=== PATIENT | female | born 1990 | race Caucasian/White ===

== ENCOUNTER → 2018-07-24 13:11 | Emergency (ER) | payer SELFPAY ==
[~2018-07-24 13:11] MED LIST: Albuterol HFA INHALER* 8 gm MDI INH ONE; Albuterol/Ipratropium NEB.SOL* Albuterol 2.5 MG/Ipratropium 0.5 MG 3 ML INH ONE; Dexamethasone TAB* 4 MG PO ONE
--- NOTE | 2018-07-24 14:29 | ED ---
Shortness of Breath - HPI Summary HPI Summary: A 28 y/o female presents to the ED c/o SOB due to her asthma for the past 3 days. As per triage, "SOB, just finishing steroids/abx for pneumonia. history of asthma. does not have established PCP, continued SOB since steroids done. needs inhaler". According to the patient, she is experiencing severe SOB due to her asthma. She stated that moved here 2 weeks ago and she does not have any asthma medications. She stated that she went to [place] a couple weeks ago in which she was given Prednisone, Keflex, and a nebulizer treatment, however, they did not prescribe her any medications. She went back to them but they stated that she would need to be re-evaluated again which she does not have time for. She noted that she has a sore throat from coughing, some chest tightness due to the asthma, and pleuritic back pain. She denies any abdominal pain, rash, bruising, but has been breaking out due to the weather she thinks. Additionally denies any anxiety, depression, and SI (even though she has been dealing with quite a bit lately). Patient is staying with a friend for now. - History of Current Complaint Chief Complaint: EDShortnessOfBreath Hx Obtained From: Patient Onset/Duration: Sudden Onset, Lasting Days, Still Present Timing: Constant Dyspnea At: Rest Aggrevating Factors: Nothing Alleviating Factors: Bronchodilators Associated Signs & Symptoms: Cough (Nonproductive), Chest Pain w/Cough - Allergy/Home Medications Allergies/Adverse Reactions: Allergies Allergy/AdvReac Type Severity Reaction Status Date / Time levofloxacin [From Levaquin] Allergy Unknown Verified 07/24/18 13:32 Reaction Details PMH/Surg Hx/FS Hx/Imm Hx Endocrine/Hematology History: Denies: Hx Diabetes Cardiovascular History: Denies: Hx Hypertension Respiratory History: Reports: Hx Asthma - Surgical History Surgery Procedure, Year, and Place: 2 HERNIA REPAIR AND TONSILLECTOMY Infectious Disease History: No Infectious Disease History: Denies: Traveled Outside the US in Last 30 Days - Family History Known Family History: Positive: Other - UNKNOWN: PATIENT'S PARENTS WHEN SHE WAS VERY YOUNG - Social History Alcohol Use: None Substance Use Type: Reports: None Smoking Status (MU): Never Smoked Tobacco Review of Systems Negative: Fever, Chills Positive: Other - NEGATIVE: DOUBLE VISION. Negative: Blurred Vision Positive: Sore Throat - DUE TO COUGH. Negative: Ear Ache Positive: Chest Pain - DUE TO COUGH/ASTHMA Positive: Shortness Of Breath, Cough - NONPRODUCTIVE Positive: Other - NEGATIVE: BLOOD IN STOOL AND CONSTIPATION. Negative: Abdominal Pain, Vomiting, Diarrhea, Nausea Negative: dysuria, hematuria Positive: Other - POSITIVE: PLEURITIC BACK PAIN (CHRONIC); NEGATIVE: NECK PAIN. Negative: Edema Positive: Other - POSITIVE: BREAKING OUT DUE TO WEATHER CHANGE. Negative: Rash , Bruising Negative: Headache Positive: Other - NEGATIVE: SI. Negative: Anxious, Depressed All Other Systems Reviewed And Are Negative: No Physical Exam - Summary Physical Exam Summary: Appearance: Alert, conversive, nontoxic appearing Skin: Warm, dry, no mottling, no rashes, no contusions HEENT: EOMI, PERRL, moist mucous membranes Neck: No masses on the neck, supple Respiratory: Clear to auscultation, breath sounds present, no rales, no rhonchi , patient is wheezing, more anteriorly. Cardiovascular: RRR, pulses are symmetrical in both lower and upper extremities Abdomen: Soft, non-tender Bowel Sounds: Present Musculoskeletal: No CVA tenderness, no obvious deformity, moving all extremities in a grossly normal manner Neurological: A&Ox3, CN II-XII Intact, moving all extremities symmetrically Psychiatric: Normal affect and mood Triage Information Reviewed: Yes Vital Signs On Initial Exam: Initial Vitals Temp Pulse Resp BP Pulse Ox 98.9 F 114 16 114/88 98 07/24/18 13:27 07/24/18 13:27 07/24/18 13:27 07/24/18 13:27 07/24/18 13:27 Vital Signs Reviewed: Yes Diagnostics - Vital Signs Vital Signs Temp Pulse Resp BP Pulse Ox 07/24/18 13:27 98.9 F 114 16 114/88 98 - Laboratory Lab Statement: Any lab studies that have been ordered have been reviewed, and results considered in the medical decision making process. - Radiology CXR Radiology Interpretation Completed By: Radiologist Summary of Radiographic Findings: NO ACTIVE CARDIOPULMONARY DISEASE. ED PHYSICIAN REVIEWED THIS RADIOLOGY REPORT. Course/Dx - Course Course Of Treatment: A 28 y/o female presents to the ED c/o SOB due to her asthma for the past 3 days. According to the patient, she is experiencing severe SOB due to her asthma. She stated that moved here 2 weeks ago and she does not have any asthma medications. She stated that she went to [place] a couple weeks ago in which she was given Prednisone, Keflex, and a nebulizer treatment, however, they did not prescribe her any medications. Physical examination findings significant for wheezing, more anteriorly. A CXR revealed no acute cardiopulmonary disease. No laboratory screens were done. In the ED course, the patient received Ventolin, Albuterol, and Decadron. Patient will be discharged with a diagnosis asthma. Patient is agreeable with this plan. - Diagnoses Provider Diagnoses: Asthma Discharge - Sign-Out/Discharge Documenting (check all that apply): Patient Departure - DISCHARGE - Discharge Plan Condition: Stable Disposition: HOME Prescriptions: Albuterol 2.5MG/3ML (0.083%)* [Ventolin 2.5 MG/3 ML NEB.MARISA*] 2.5 mg INH Q4H # 60 neb.[email or web address] Albuterol HFA INHALER* [Ventolin HFA Inhaler*] 1 puff INH Q4H PRN #1 mdi PRN Reason: Dyspnea predniSONE TAB* [Deltasone 20 MG TAB*] 60 mg PO DAILY #12 tab Patient Education Materials: Asthma (ED) Referrals: [facility] [Provider Group] No Primary Care Phys,NOPCP [Primary Care Provider] - Additional Instructions: Please establish care with a primary care physician. return if worse or any new symptoms. Use the inhaler and spacer as instructed. - Billing Disposition and Condition Condition: STABLE Disposition: Home - Attestation Statements Document Initiated by Kota: Yes Documenting Scribe: Marvin Francois Provider For Whom Kota is Documenting (Include Credential): Coco Cunha MD Scribe Attestation: Marvin Diego, scribed for Coco Cunha MD on 07/24/18 at 1603. Scribe Documentation Reviewed: Yes Provider Attestation: The documentation as recorded by the Marvin gonzalez accurately reflects the service I personally performed and the decisions made by me, Coco Cunha MD Status of Scribe Document: Viewed
[2018-07-24 15:42] VITALS: BP 137/91
== END | disposition home or self-care (01) ==
LOC: ED 13:11
DX: J45.909 Unspecified asthma, uncomplicated (principal); R05 Cough; R07.9 Chest pain, unspecified; J02.9 Acute pharyngitis, unspecified
CPT/HCPCS: 71046; 99282; A9270-GY; J8540

== ENCOUNTER 2018-08-06 19:05 | Emergency (ER) | payer SELFPAY ==
[2018-08-06] MEDS ORDERED: Lidocaine 2% EPI 1:200000 MPF*10-20 ML VIAL ONE (21:36)
--- NOTE | 2018-08-06 21:47 | ED ---
Skin Complaint - History of Current Complaint Chief Complaint: EDRashSkinAbscess Time Seen by Provider: 08/06/18 21:32 Stated Complaint: PAIN ON TAILBONE Hx Obtained From: Patient Onset/Duration: Started Days Ago - 3 days, Atraumatic, Still Present Timing: Constant Onset Severity: Mild Current Severity: Mild Pain Intensity: 8 Pain Scale Used: 0-10 Numeric Skin Location: Other: - tailbone Character: Pain Aggravating Symptom(s): Other: - sitting and lying down Alleviating Symptom(s): Nothing Associated Signs & Symptoms: Negative - negative fever - Allergy/Home Medications Allergies/Adverse Reactions: Allergies Allergy/AdvReac Type Severity Reaction Status Date / Time levofloxacin [From Levaquin] Allergy Unknown Verified 08/06/18 19:15 Reaction Details PMH/Surg Hx/FS Hx/Imm Hx Endocrine/Hematology History: Denies: Hx Diabetes Cardiovascular History: Denies: Hx Hypertension Respiratory History: Reports: Hx Asthma - Surgical History Surgery Procedure, Year, and Place: 2 HERNIA REPAIR AND TONSILLECTOMY Infectious Disease History: No Infectious Disease History: Denies: Traveled Outside the US in Last 30 Days - Family History Known Family History: Positive: Other - UNKNOWN: PATIENT'S PARENTS WHEN SHE WAS VERY YOUNG - Social History Alcohol Use: None Substance Use Type: Reports: None Smoking Status (MU): Never Smoked Tobacco Review of Systems Negative: Fever Negative: Epistaxis Negative: Cough Negative: Vomiting Skin: Other - painful cyst on tailbone All Other Systems Reviewed And Are Negative: Yes Physical Exam - Summary Physical Exam Summary: VITAL SIGNS: Reviewed. GENERAL: Patient is a well-developed and nourished FEMALE who is lying comfortable in the stretcher. Patient is not in any acute respiratory distress. HEAD AND FACE: No signs of trauma. No ecchymosis, hematomas or skull depressions. No sinus tenderness. EYES: PERRLA, EOMI x 2, No injected conjunctiva, no nystagmus. EARS: Hearing grossly intact. Ear canals and tympanic membranes are within normal limits. MOUTH: Oropharynx within normal limits. NECK: Supple, trachea is midline, no adenopathy, no JVD, no carotid bruit, no c- spine tenderness, neck with full ROM. CHEST: Symmetric, no tenderness at palpation LUNGS: Clear to auscultation bilaterally. No wheezing or crackles. CVS: Regular rate and rhythm, S1 and S2 present, no murmurs or gallops appreciated. ABDOMEN: Soft, non-tender. No signs of distention. No rebound no guarding, and no masses palpated. Bowel sounds are normal. EXTREMITIES: FROM in all major joints, no edema, no cyanosis or clubbing. NEURO: Alert and oriented x 3. No acute neurological deficits. Speech is normal and follows commands. SKIN: Dry and warm, Tender, fluctuant, swollen area over the left buttock over adjacent to the midline Triage Information Reviewed: Yes Vital Signs On Initial Exam: Initial Vitals Temp Pulse Resp BP Pulse Ox 96.8 F 124 16 133/95 99 08/06/18 19:10 08/06/18 19:10 08/06/18 19:10 08/06/18 19:10 08/06/18 19:10 Vital Signs Reviewed: Yes Procedures - Incision and Drainage left buttock abscess Site: over left buttock, adjacent to midline Anesthesia: Lidocaine - 2% with epi Instrument(s): Scalpel - #11 Packing: Gauze - iodoform gauze Diagnostics - Vital Signs Vital Signs Temp Pulse Resp BP Pulse Ox 08/06/18 21:14 98.4 F 119 16 141/90 100 08/06/18 19:10 96.8 F 124 16 133/95 99 - Laboratory Lab Statement: Any lab studies that have been ordered have been reviewed, and results considered in the medical decision making process. Course/Dx - Course Course Of Treatment: This patient is a 28 year old F presenting to [facility] with a chief complaint of a painful cyst on her tailbone since 3 days ago. The patient rates the pain 8/10 in severity. Symptoms aggravated by lying down or sitting. Symptoms alleviated by nothing. Patient denies fever. Patient says she has previously had a pilonidal cyst 1 year ago and had it drained in the hospital. Incision and drainage was performed of the swollen area over the left buttock, adjacent to midline. 2% lidocaine with epi was administered and #11 blade was used to make the incision. Approximately 25cc of pus was drained and the wound was packed with iodoform gauze. Patient will be discharged home. The patient is agreeable with this plan. - Diagnoses Provider Diagnoses: Pilonidal abscess Discharge - Sign-Out/Discharge Documenting (check all that apply): Patient Departure - discharge - Discharge Plan Condition: Stable Disposition: HOME Patient Education Materials: Pilonidal Cyst (ED), Abscess (ED) Referrals: Care [facility] [Outside] Additional Instructions: Remove packing after 2 days. Follow up with primary care physician. Return to the emergency room with any new or worsening symptoms. - Attestation Statements Document Initiated by Scribe: Yes Documenting Scribe: Izabel Antoine Provider For Whom Scribe is Documenting (Include Credential): Bonnie Louie MD Scribe Attestation: Izabel Diego, scribed for Bonnie Louie MD on 08/06/18 at 4107. Status of Scribe Document: Ready
[2018-08-06] MEDS ORDERED: Clindamycin CAP* 150 MG PO ONE (21:53)
[2018-08-06 22:58] VITALS: BP 108/80
--- NOTE | 2018-08-09 07:53 | ED ---
Progress - Progress Note Progress Note: Patient's pilonidal cyst culture status post I&D reveals that it is negative to MRSA and staph aureus however positive with Peptostreptococcus anaerobius +3 and normal micheal + 2. Patient was started on clindamycin which may be effective however Flagyl may be a better medication. Attempted to contact patient to update her symptoms however no answer. Left message to call. She was already advised to follow up at d/c. No further action at this time. Course/Dx - Course Course Of Treatment: This patient is a 28 year old F presenting to [facility] with a chief complaint of a painful cyst on her tailbone since 3 days ago. The patient rates the pain 8/10 in severity. Symptoms aggravated by lying down or sitting. Symptoms alleviated by nothing. Patient denies fever. Patient says she has previously had a pilonidal cyst 1 year ago and had it drained in the hospital. Incision and drainage was performed of the swollen area over the left buttock, adjacent to midline. 2% lidocaine with epi was administered and #11 blade was used to make the incision. Approximately 25cc of pus was drained and the wound was packed with iodoform gauze. Patient will be discharged home. The patient is agreeable with this plan. - Diagnoses Provider Diagnoses: Pilonidal abscess Discharge - Sign-Out/Discharge Documenting (check all that apply): Post-Discharge Follow Up - Discharge Plan Condition: Stable Disposition: HOME Prescriptions: Clindamycin Cap(NF) [Clindamycin Cap 300 mg Cap(NF)] 300 mg PO Q6H #30 cap oxyCODONE/Acetamin 5/325 MG* [Percocet 5/325 TAB*] 1 tab PO Q6H PRN #10 tab MDD 4 PRN Reason: Pain Patient Education Materials: Pilonidal Cyst (ED), Abscess (ED) Referrals: [facility] [Outside] Additional Instructions: Remove packing after 2 days. Follow up with primary care physician. Return to the emergency room with any new or worsening symptoms. - Billing Disposition and Condition Condition: STABLE Disposition: Home
== END 2018-08-06 22:58 | disposition home or self-care (01) ==
LOC: ED 19:05
DX: L05.01 Pilonidal cyst with abscess (principal)
CPT/HCPCS: 10080; 87070; 87076; 87077; 87205; 87640; 87641; 99283; A9270-GY

== ENCOUNTER → 2018-09-04 11:40 | Emergency (ER) | payer SELFPAY ==
[~2018-09-04 11:40] MED LIST changes: +Dexamethasone IV* 4 MG/ML 1 ML (4 MG) IM ONE; -Dexamethasone TAB* 4 MG PO ONE
[2018-09-04 14:49] VITALS: BP 129/90
--- NOTE | 2018-09-08 08:51 | ED ---
Shortness of Breath - HPI Summary HPI Summary: Patient is a 28-year-old female with a history of asthma presenting to the ED with a request for prescription for Ventolin and a work note. She states she has had worsening asthma exacerbation. She was seen here 2 weeks ago and was given Ventolin, albuterol, both which were "stolen" from her car. She states she's been out of her medications for several days and her symptoms worsened. She denies any cough with production. She denies any fevers, sweats, chills. Patient states she is otherwise healthy. - History of Current Complaint Chief Complaint: EDShortnessOfBreath Time Seen by Provider: 09/04/18 12:07 Hx Obtained From: Patient Onset/Duration: Sudden Onset Timing: Constant Current Severity: Mild Alleviating Factors: Bronchodilators, OTC Meds, Upright Position Associated Signs & Symptoms: Cough (Nonproductive) - Risk Factors Pulmonary Embolism: Negative Cardiac: Negative Pseudomonas: Negative Tuberculosis: Negative - Allergy/Home Medications Allergies/Adverse Reactions: Allergies Allergy/AdvReac Type Severity Reaction Status Date / Time cefaclor [From Ceclor] Allergy Unknown Verified 08/23/18 11:32 Reaction Details levofloxacin [From Levaquin] Allergy Unknown Verified 08/23/18 11:32 Reaction Details PMH/Surg Hx/FS Hx/Imm Hx Previously Healthy: Yes Endocrine/Hematology History: Denies: Hx Diabetes Cardiovascular History: Denies: Hx Hypertension Respiratory History: Reports: Hx Asthma - Surgical History Surgery Procedure, Year, and Place: 2 HERNIA REPAIR AND TONSILLECTOMY - Immunization History Date of Influenza Vaccine: none Hx Pertussis Vaccination: No Immunizations Up to Date: Yes Infectious Disease History: No Infectious Disease History: Denies: Traveled Outside the US in Last 30 Days - Family History Known Family History: Positive: Other - UNKNOWN: PATIENT'S PARENTS WHEN SHE WAS VERY YOUNG - Social History Occupation: Employed Part-time Lives: With Family Alcohol Use: Daily Hx Substance Use: No Substance Use Type: Reports: None Hx Tobacco Use: Yes Smoking Status (MU): Light Every Day Tobacco Smoker Review of Systems Constitutional: Negative Negative: Fever, Chills, Fatigue, Skin Diaphoresis Negative: Palpitations, Chest Pain Positive: Shortness Of Breath. Negative: Cough Genitourinary: Negative Positive: no symptoms reported, see HPI Negative: Arthralgia, Myalgia Skin: Negative All Other Systems Reviewed And Are Negative: Yes Physical Exam Triage Information Reviewed: Yes Vital Signs On Initial Exam: Initial Vitals Temp Pulse Resp BP Pulse Ox 98.1 F 97 18 139/88 96 09/04/18 11:56 09/04/18 11:56 09/04/18 11:56 09/04/18 11:56 09/04/18 11:56 Vital Signs Reviewed: Yes Appearance: Positive: Well-Appearing, Well-Nourished Skin: Positive: Warm, Skin Color Reflects Adequate Perfusion Head/Face: Positive: Normal Head/Face Inspection Eyes: Positive: Normal, SHANTEL, Conjunctiva Clear Neck: Positive: Supple, No Lymphadenopathy Respiratory/Lung Sounds: Positive: Wheezes Cardiovascular: Positive: RRR, Pulses are Symmetrical in both Upper and Lower Extremities Musculoskeletal: Positive: Normal, Strength/ROM Intact Psychiatric: Positive: Normal, Affect/Mood Appropriate Diagnostics - Vital Signs Vital Signs Temp Pulse Resp BP Pulse Ox 09/04/18 14:48 98.6 F 103 18 129/90 99 09/04/18 14:09 98 09/04/18 13:54 83 16 98 09/04/18 11:56 98.1 F 97 18 139/88 96 - Laboratory Lab Statement: Any lab studies that have been ordered have been reviewed, and results considered in the medical decision making process. Course/Dx - Course Course Of Treatment: During the course treatment, the patient is evaluated for worsening asthma exacerbation. While waiting in the ED, nurse noted she had worsening shortness of breath and brought her back to a room. She was given a nebulizer treatment with good relief. Lungs are wheezing bilaterally. She requests ventolin inhaler and prednisone. She is given these rx. - Diagnoses Differential Diagnosis/HQI/PQRI: Positive: Bronchitis, Pneumonia Provider Diagnoses: Bronchitis Discharge - Sign-Out/Discharge Documenting (check all that apply): Patient Departure Patient Received Moderate/Deep Sedation with Procedure: No - Discharge Plan Condition: Stable Disposition: HOME Prescriptions: Albuterol HFA INHALER* [Ventolin HFA Inhaler*] 1 puff INH Q4H PRN #1 mdi PRN Reason: Shortness Of Breath Patient Education Materials: Bronchospasm (ED) Forms: *Work Release Referrals: Mercedes Marsh MD [Medical Doctor] - No Primary Care Phys,NOPCP [Primary Care Provider] - Additional Instructions: Albuterol inhaler as needed for asthma exacerbation Please follow up with pulmonology once you get your insurance Return to the ED for worsening symptoms - Billing Disposition and Condition Condition: STABLE Disposition: Home
== END | disposition home or self-care (01) ==
LOC: ED 11:40
DX: R06.02 Shortness of breath (principal); F17.210 Nicotine dependence, cigarettes, uncomplicated
CPT/HCPCS: 96372; 99282; A9270-GY; J1100

== ENCOUNTER 2018-09-13 21:59 | Emergency (ER) | payer SELFPAY ==
[2018-09-13] MEDS ORDERED: Albuterol/Ipratropium NEB.SOL* Albuterol 2.5 MG/Ipratropium 0.5 MG 3 ML INH ONE (22:11)
[2018-09-13] MEDS ORDERED: predniSONE TAB* 20 MG PO ONE (22:11)
[2018-09-13] MEDS ORDERED: Albuterol HFA INHALER* 8 gm MDI INH ONE (22:16)
--- NOTE | 2018-09-13 22:21 | ED ---
Asthma - HPI Summary HPI Summary: Patient who recently moved from [place] complains of recurrent asthma attacks over the past 2 months. Currently complains of wheezing starting today. No insurance, states she is unable to get inhaler. Complains of chronic cough. Denies any other medical conditions or symptoms, injury or pain. - History of Current Complaint Chief Complaint: EDAsthma Stated Complaint: SOB Time Seen by Provider: 09/13/18 22:11 Hx Obtained From: Patient Onset/Duration: Sudden Onset, Lasting Hours Timing: Constant Current Severity: None Pain Intensity: 0 Pain Scale Used: 0-10 Numeric Location/Character: Wheezing Associated Signs and Symptoms: Positive: Negative - Allergy/Home Medications Allergies/Adverse Reactions: Allergies Allergy/AdvReac Type Severity Reaction Status Date / Time cefaclor [From Ceclor] Allergy Unknown Verified 08/23/18 11:32 Reaction Details levofloxacin [From Levaquin] Allergy Unknown Verified 08/23/18 11:32 Reaction Details PMH/Surg Hx/FS Hx/Imm Hx Endocrine/Hematology History: Denies: Hx Diabetes Cardiovascular History: Denies: Hx Hypertension Respiratory History: Reports: Hx Asthma History: Denies: Hx Dialysis Musculoskeletal History: Denies: Hx Gout Opthamlomology History: Denies: Hx Eye Injury EENT History: Denies: Hx Deafness Neurological History: Denies: Hx Dementia Psychiatric History: Denies: Hx Autism - Surgical History Surgery Procedure, Year, and Place: 2 HERNIA REPAIR AND TONSILLECTOMY - Immunization History Date of Influenza Vaccine: none Infectious Disease History: No Infectious Disease History: Denies: Traveled Outside the US in Last 30 Days - Family History Known Family History: Positive: Other - UNKNOWN: PATIENT'S PARENTS WHEN SHE WAS VERY YOUNG - Social History Alcohol Use: Daily Hx Substance Use: No Substance Use Type: Reports: None Hx Tobacco Use: Yes Smoking Status (MU): Light Every Day Tobacco Smoker Review of Systems Constitutional: Negative Eyes: Negative ENT: Negative Cardiovascular: Negative Positive: Shortness Of Breath Gastrointestinal: Negative Genitourinary: Negative Musculoskeletal: Negative Skin: Negative Neurological: Negative Psychological: Normal All Other Systems Reviewed And Are Negative: Yes Physical Exam - Summary Physical Exam Summary: Mild wheeze bilaterally. Triage Information Reviewed: Yes Vital Signs On Initial Exam: Initial Vitals Temp Pulse Resp BP Pulse Ox 97.6 F 119 24 123/83 98 09/13/18 21:59 09/13/18 21:59 09/13/18 21:59 09/13/18 21:59 09/13/18 21:59 Vital Signs Reviewed: Yes Appearance: Positive: Well-Appearing Skin: Positive: Warm Head/Face: Positive: Normal Head/Face Inspection Eyes: Positive: Normal ENT: Positive: Normal ENT inspection Neck: Positive: Supple Respiratory/Lung Sounds: Positive: Clear to Auscultation Cardiovascular: Positive: Normal Abdomen Description: Positive: Nontender Musculoskeletal: Positive: Normal Neurological: Positive: Normal Psychiatric: Positive: Normal AVPU Assessment: Alert - [place] Coma Scale Best Eye Response: 4 - Spontaneous Best Motor Response: 6 - Obeys Commands Best Verbal Response: 5 - Oriented Coma Scale Total: 15 Diagnostics - Vital Signs Vital Signs Temp Pulse Resp BP Pulse Ox 09/13/18 21:59 97.6 F 119 24 123/83 98 - Laboratory Lab Statement: Any lab studies that have been ordered have been reviewed, and results considered in the medical decision making process. Asthma Course/Dx - Course Course Of Treatment: Patient who recently moved from [place] complains of recurrent asthma attacks over the past 2 months. Currently complains of wheezing starting today. No insurance, states she is unable to get inhaler. Complains of chronic cough. Denies any other medical conditions or symptoms, injury or pain. Physical exam:Mild wheeze bilaterally. Heart rate 119. Respiratory rate 24. Patient received DuoNeb and prednisone 60 mg by mouth and albuterol inhaler to go. Rx for same. - Diagnoses Provider Diagnoses: Asthma attack Discharge - Sign-Out/Discharge Documenting (check all that apply): Patient Departure Patient Received Moderate/Deep Sedation with Procedure: No - Discharge Plan Condition: Stable Disposition: HOME Prescriptions: Albuterol HFA INHALER* [Ventolin HFA Inhaler*] 2 puff INH Q4H PRN #1 mdi PRN Reason: Dyspnea predniSONE TAB* [Deltasone 20 MG TAB*] 40 mg PO DAILY 5 Days #10 tab Patient Education Materials: Asthma (ED) Referrals: No Primary Care Phys,NOPCP [Primary Care Provider] - [facility] [Outside] Additional Instructions: Follow-up with primary care. Return to the ED for any new or worsening symptoms. - Billing Disposition and Condition Condition: STABLE Disposition: Home
[2018-09-13 22:45] VITALS: BP 109/68
== END 2018-09-13 23:00 | disposition home or self-care (01) ==
LOC: ED 21:59
DX: J45.901 Unspecified asthma with (acute) exacerbation (principal); Z88.1 Allergy status to other antibiotic agents; F17.200 Nicotine dependence, unspecified, uncomplicated
CPT/HCPCS: 99282; A9270-GY; J7512

== ENCOUNTER 2018-09-24 10:53 | Emergency (ER) | payer SELFPAY ==
[2018-09-24] MEDS ORDERED: Albuterol/Ipratropium NEB.SOL* Albuterol 2.5 MG/Ipratropium 0.5 MG 3 ML INH ONE (14:28)
[2018-09-24] MEDS ORDERED: Albuterol/Ipratropium NEB.SOL* Albuterol 2.5 MG/Ipratropium 0.5 MG 3 ML ONE (14:30)
[2018-09-24] MEDS ORDERED: Albuterol HFA INHALER* 8 gm MDI INH ONE (15:13)
--- NOTE | 2018-09-24 15:17 | ED ---
Asthma - HPI Summary HPI Summary: Patient is a 28-year-old female who is a frequent visitor to the ED due to lapses in insurance for requests for more asthma medications. She states she recently moved here from [place] and her asthma has been worsening since arrival. 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 She has been given inhalers and steroids in the past and she has a request for this today. She is also requesting a longer acting inhaler. She denies any congestion, however endorses a mild cough without production. - History of Current Complaint Chief Complaint: EDAsthma Stated Complaint: "ASTHMA ISSUES" PER PT Time Seen by Provider: 09/24/18 13:47 Hx Obtained From: Patient Onset/Duration: Sudden Onset Timing: Constant Initial Severity: Moderate Current Severity: Moderate Pain Intensity: 2 Pain Scale Used: 0-10 Numeric Location/Character: Wheezing Aggravating Symptoms: Smoke Alleviating Symptoms: Steriods, Inhalers/Nebulizers Associated Signs and Symptoms: Positive: URI, Shortness of Breath - Risk Factors Status Asthmaticus Risk Factors: Recent Steroids - Allergy/Home Medications Allergies/Adverse Reactions: Allergies Allergy/AdvReac Type Severity Reaction Status Date / Time cefaclor [From Ceclor] Allergy Unknown Verified 08/23/18 11:32 Reaction Details levofloxacin [From Levaquin] Allergy Unknown Verified 08/23/18 11:32 Reaction Details PMH/Surg Hx/FS Hx/Imm Hx Previously Healthy: Yes Endocrine/Hematology History: Denies: Hx Diabetes Cardiovascular History: Denies: Hx Hypertension Respiratory History: Reports: Hx Asthma History: Denies: Hx Dialysis Musculoskeletal History: Denies: Hx Gout Sensory History: Denies: Hx Eye Injury, Hx Deafness Opthamlomology History: Denies: Hx Eye Injury Neurological History: Denies: Hx Dementia Psychiatric History: Denies: Hx Autism - Surgical History Surgery Procedure, Year, and Place: 2 HERNIA REPAIR AND TONSILLECTOMY - Immunization History Date of Influenza Vaccine: none Hx Pertussis Vaccination: No Immunizations Up to Date: Yes Infectious Disease History: No Infectious Disease History: Denies: Traveled Outside the US in Last 30 Days - Family History Known Family History: Positive: Other - UNKNOWN: PATIENT'S PARENTS WHEN SHE WAS VERY YOUNG - Social History Occupation: Employed Full-time Lives: Alone Alcohol Use: Daily Hx Substance Use: No Substance Use Type: Reports: None Hx Tobacco Use: Yes Smoking Status (MU): Light Every Day Tobacco Smoker Review of Systems Negative: Fever, Chills, Fatigue, Skin Diaphoresis Negative: Palpitations, Chest Pain Positive: Shortness Of Breath, Cough Negative: Abdominal Pain Negative: Arthralgia, Myalgia Skin: Negative Neurological: Negative All Other Systems Reviewed And Are Negative: Yes Physical Exam Triage Information Reviewed: Yes Vital Signs On Initial Exam: Initial Vitals Temp Pulse Resp BP Pulse Ox 97.0 F 116 24 146/103 99 09/24/18 10:54 09/24/18 10:54 09/24/18 10:54 09/24/18 10:54 09/24/18 10:54 Vital Signs Reviewed: Yes Appearance: Positive: Well-Appearing, Well-Nourished Skin: Positive: Warm, Skin Color Reflects Adequate Perfusion Head/Face: Positive: Normal Head/Face Inspection Eyes: Positive: EOMI, SHANTEL Neck: Positive: Supple, No Lymphadenopathy Respiratory/Lung Sounds: Positive: Wheezes - bilaterally. Negative: Decreased Breath Sounds, Rales, Rhonchi, Tracheal Deviation, Unable to speak in full sentences Cardiovascular: Positive: RRR, Pulses are Symmetrical in both Upper and Lower Extremities Musculoskeletal: Positive: Normal, Strength/ROM Intact Neurological: Positive: Speech Normal Psychiatric: Positive: Affect/Mood Appropriate Diagnostics - Vital Signs Vital Signs Temp Pulse Resp BP Pulse Ox 09/24/18 14:36 108 18 99 09/24/18 13:33 132 18 98 09/24/18 13:08 97.1 F 110 20 137/95 100 09/24/18 10:54 97.0 F 116 24 146/103 99 - Laboratory Lab Statement: Any lab studies that have been ordered have been reviewed, and results considered in the medical decision making process. Asthma Course/Dx - Course Course Of Treatment: On arrival, patient's states she has been having worsening asthma. Lungs are wheezy throughout. No rhonchorous sounds. She is given abulteral, advair and prednisone. Breathing tx given in the ED with good effect. Less wheezing throughout on recheck. No fevers. Patient denies f/w/ c. Denies congestion. - Diagnoses Differential Diagnosis/HQI/PQRI: Positive: Bronchitis Provider Diagnoses: Asthma Discharge - Sign-Out/Discharge Documenting (check all that apply): Patient Departure Patient Received Moderate/Deep Sedation with Procedure: No - Discharge Plan Condition: Stable Disposition: HOME Prescriptions: Albuterol HFA INHALER* [Ventolin HFA Inhaler*] 1 puff INH Q4H PRN #1 mdi PRN Reason: Shortness Of Breath Fluticasone-Salmeterol 250-50* [Advair Diskus 250-50*] 1 puff INH BID #1 diskus Patient Education Materials: Asthma (ED) Forms: *Work Release Referrals: [facility] [Outside] No Primary Care Phys,NOPCP [Primary Care Provider] - Additional Instructions: Follow-up with [facility] Advair twice daily Albuterol inhaler as needed - Billing Disposition and Condition Condition: STABLE Disposition: Home
[2018-09-24 15:31] VITALS: BP 120/87
[2018-09-24] MEDS ORDERED: Fluticasone-Salmeterol 250-50* DISKUS INH SCH (21:00)
== END 2018-09-24 15:20 | disposition home or self-care (01) ==
LOC: ED 10:53
DX: J45.909 Unspecified asthma, uncomplicated (principal); R06.02 Shortness of breath; F17.210 Nicotine dependence, cigarettes, uncomplicated; R05 Cough
CPT/HCPCS: 99282; A9270-GY

== ENCOUNTER 2018-10-08 11:04 | Emergency (ER) | payer SELFPAY ==
[2018-10-08] MEDS ORDERED: Albuterol/Ipratropium NEB.SOL* Albuterol 2.5 MG/Ipratropium 0.5 MG 3 ML INH ONE (11:29)
[2018-10-08] MEDS ORDERED: predniSONE TAB* 20 MG PO ONE (11:29)
[2018-10-08] MEDS ORDERED: Albuterol HFA INHALER* 8 gm MDI INH ONE (11:57)
[2018-10-08 12:31] VITALS: BP 146/85
--- NOTE | 2018-10-12 15:06 | ED ---
Asthma - HPI Summary HPI Summary: Pt. is a 28 y.o female who presents to the ER for asthma exacerbation. Pt. notes she recently moved to the area from [place] and since her asthma has been worse. Pt. has been seen in our ER numerous times for same complaint. She has been treated with prednisone and Advair. Pt. states she lost her inhaler and is feeling tight today. She notes ongoing, chronic cough. Denies fever, CP, abd. pain. Otherwise no past medical hx. Pt. has not made attempt to obtain PCP. Sxs are mild in severity. No current modifying factors. - History of Current Complaint Chief Complaint: EDAsthma Stated Complaint: ASTHMA ISSUES, COUGH PER PT Time Seen by Provider: 10/08/18 11:43 Hx Obtained From: Patient Pain Intensity: 0 Pain Scale Used: 0-10 Numeric - Allergy/Home Medications Allergies/Adverse Reactions: Allergies Allergy/AdvReac Type Severity Reaction Status Date / Time cefaclor [From Ceclor] Allergy Unknown Verified 10/08/18 11:08 Reaction Details levofloxacin [From Levaquin] Allergy Unknown Verified 10/08/18 11:08 Reaction Details PMH/Surg Hx/FS Hx/Imm Hx Previously Healthy: Yes Endocrine/Hematology History: Denies: Hx Diabetes Cardiovascular History: Denies: Hx Hypertension Respiratory History: Reports: Hx Asthma History: Denies: Hx Dialysis Musculoskeletal History: Denies: Hx Gout Sensory History: Denies: Hx Eye Injury, Hx Deafness Opthamlomology History: Denies: Hx Eye Injury Neurological History: Denies: Hx Dementia Psychiatric History: Denies: Hx Autism - Surgical History Surgery Procedure, Year, and Place: 2 HERNIA REPAIR AND TONSILLECTOMY - Immunization History Date of Influenza Vaccine: none Infectious Disease History: No Infectious Disease History: Denies: Traveled Outside the US in Last 30 Days - Family History Known Family History: Positive: Other - UNKNOWN: PATIENT'S PARENTS WHEN SHE WAS VERY YOUNG - Social History Occupation: Unemployed Lives: With Family Alcohol Use: Occasionally Hx Substance Use: No Substance Use Type: Reports: None Hx Tobacco Use: Yes Smoking Status (MU): Light Every Day Tobacco Smoker Review of Systems Constitutional: Negative Negative: Fever Eyes: Negative ENT: Negative Cardiovascular: Negative Positive: Shortness Of Breath, Cough Gastrointestinal: Negative Skin: Negative Neurological: Negative All Other Systems Reviewed And Are Negative: Yes Physical Exam Triage Information Reviewed: Yes Vital Signs On Initial Exam: Initial Vitals Temp Pulse Resp BP Pulse Ox 98.4 F 122 20 127/96 99 10/08/18 11:08 10/08/18 11:08 10/08/18 11:08 10/08/18 11:08 10/08/18 11:08 Vital Signs Reviewed: Yes Appearance: Positive: Well-Appearing - Pt. sitting on bed in NAD. Breathing easily on RA. Skin: Positive: Warm, Dry Head/Face: Positive: Normal Head/Face Inspection Eyes: Positive: Normal, EOMI ENT: Positive: Pharynx normal, TMs normal Neck: Positive: Supple Respiratory/Lung Sounds: Positive: Other - Mild diminished breath sounds through out. Cardiovascular: Positive: Normal, RRR Neurological: Positive: Normal, CN Intact II-III Psychiatric: Positive: Affect/Mood Appropriate Diagnostics - Vital Signs Vital Signs Temp Pulse Resp BP Pulse Ox 10/08/18 12:30 98.1 F 118 18 146/85 98 10/08/18 12:01 112 18 98 10/08/18 11:08 98.4 F 122 20 127/96 99 - Laboratory Lab Statement: Any lab studies that have been ordered have been reviewed, and results considered in the medical decision making process. Asthma Course/Dx - Course Course Of Treatment: Pt. afebrile and well appearing. O2 saturation is 99& % on RA which is normal. Pt. given dueoneb in ED. Pt. requesting dispensed inhaler and rx. Strongly advised pt. to schedule an apt. with the [facility] in [facility] or the [facility]. To continue Advair. Will return if sxs change or worsen. Pt. understands and agrees with plan. - Diagnoses Differential Diagnosis/HQI/PQRI: Positive: Acute Asthma, Bronchitis, Pneumonia Provider Diagnoses: Asthma exacerbation Discharge - Sign-Out/Discharge Documenting (check all that apply): Patient Departure Patient Received Moderate/Deep Sedation with Procedure: No - Discharge Plan Condition: Good Disposition: HOME Prescriptions: Albuterol HFA INHALER* [Ventolin HFA Inhaler*] 2 puff INH Q4H PRN #1 mdi PRN Reason: Wheezing Patient Education Materials: Asthma (ED) Referrals: [facility] [Outside] [facility] [Outside] Additional Instructions: Call the [facility] or the [facility] today to schedule an appointment VESTA Return to ER if symptoms change or worsen - Billing Disposition and Condition Condition: GOOD Disposition: Home
== END 2018-10-08 12:30 | disposition home or self-care (01) ==
LOC: ED 11:04
DX: J45.901 Unspecified asthma with (acute) exacerbation (principal); R05 Cough; Z88.1 Allergy status to other antibiotic agents; F17.200 Nicotine dependence, unspecified, uncomplicated
CPT/HCPCS: 99282; A9270-GY; J7512

== ENCOUNTER 2018-10-20 20:18 | Emergency (ER) | payer SELFPAY ==
[2018-10-20] MEDS ORDERED: Albuterol/Ipratropium NEB.SOL* Albuterol 2.5 MG/Ipratropium 0.5 MG 3 ML INH ONE (20:33)
[2018-10-20] MEDS ORDERED: predniSONE TAB* 20 MG PO ONE (21:12)
[2018-10-20] MEDS ORDERED: Albuterol HFA INHALER* 8 gm MDI INH ONE (21:12)
--- NOTE | 2018-10-20 21:15 | ED ---
Asthma - HPI Summary HPI Summary: 28-year-old female presents with shortness of breath today. She states that she ran out of her inhaler with the weather change and is having issues with her asthma. She denies any fevers. No cough. She states she has been wheezing. No chest pain. She denies abdominal pain nausea vomiting. No sinus congestion. No other symptoms. Denies any recent illness. - History of Current Complaint Chief Complaint: EDShortnessOfBreath Stated Complaint: ASTHMA ATTACK PER PT Time Seen by Provider: 10/20/18 20:33 Pain Intensity: 0 - Allergy/Home Medications Allergies/Adverse Reactions: Allergies Allergy/AdvReac Type Severity Reaction Status Date / Time cefaclor [From Ceclor] Allergy Unknown Verified 10/20/18 20:27 Reaction Details levofloxacin [From Levaquin] Allergy Unknown Verified 10/20/18 20:27 Reaction Details Home Medications: Home Medications Montelukast Sodium TAB* [Singulair TAB*] 10 mg PO DAILY 10/20/18 [History Confirmed 10/20/18] PMH/Surg Hx/FS Hx/Imm Hx Endocrine/Hematology History: Denies: Hx Diabetes Cardiovascular History: Denies: Hx Hypertension Respiratory History: Reports: Hx Asthma History: Denies: Hx Dialysis Musculoskeletal History: Denies: Hx Gout Sensory History: Denies: Hx Eye Injury, Hx Deafness Opthamlomology History: Denies: Hx Eye Injury Neurological History: Denies: Hx Dementia Psychiatric History: Denies: Hx Autism - Surgical History Surgery Procedure, Year, and Place: 2 HERNIA REPAIR AND TONSILLECTOMY - Immunization History Date of Influenza Vaccine: none Infectious Disease History: No Infectious Disease History: Denies: Traveled Outside the US in Last 30 Days - Family History Known Family History: Positive: Other - UNKNOWN: PATIENT'S PARENTS WHEN SHE WAS VERY YOUNG - Social History Alcohol Use: Occasionally Hx Substance Use: No Substance Use Type: Reports: None Hx Tobacco Use: Yes Smoking Status (MU): Light Every Day Tobacco Smoker Review of Systems Negative: Fever Negative: Chest Pain Positive: Shortness Of Breath Negative: Abdominal Pain All Other Systems Reviewed And Are Negative: Yes Physical Exam Triage Information Reviewed: Yes Vital Signs On Initial Exam: Initial Vitals Temp Pulse Resp BP Pulse Ox 97.6 F 116 20 142/102 96 10/20/18 20:24 10/20/18 20:24 10/20/18 20:24 10/20/18 20:24 10/20/18 20:24 Vital Signs Reviewed: Yes Appearance: Positive: Well-Appearing Skin: Positive: Warm, Dry Head/Face: Positive: Normal Head/Face Inspection Eyes: Positive: Normal, Conjunctiva Clear ENT: Positive: Pharynx normal Respiratory/Lung Sounds: Positive: Breath Sounds Present, Wheezes Cardiovascular: Positive: Normal, RRR Abdomen Description: Positive: Nontender, Soft Bowel Sounds: Positive: Present Musculoskeletal: Positive: Normal Neurological: Positive: Normal Psychiatric: Positive: Normal Diagnostics - Vital Signs Vital Signs Temp Pulse Resp BP Pulse Ox 10/20/18 21:00 110 96 10/20/18 20:44 121 20 96 10/20/18 20:41 114 104/81 95 10/20/18 20:39 114 95 10/20/18 20:24 97.6 F 116 20 142/102 96 - Laboratory Lab Statement: Any lab studies that have been ordered have been reviewed, and results considered in the medical decision making process. Re-Evaluation - Re-Evaluation First Eval Re-Evaluation Time: 21:14 Change: Improved Comment: lungs CTA Asthma Course/Dx - Course Course Of Treatment: 28-year-old female presents with shortness of breath today. She states that she ran out of her inhaler with the weather change and is having issues with her asthma. She denies any fevers. No cough. She states she has been wheezing. No chest pain. She denies abdominal pain nausea vomiting. No sinus congestion. No other symptoms. Denies any recent illness. On exam wheezing noted. gave breathing treatment and wheezing resolved. We will prescribe steroids. Gave refill for inhaler. Patient understands agrees with plan. - Diagnoses Differential Diagnosis/HQI/PQRI: Positive: Acute Asthma, Bronchitis, Pneumonia Provider Diagnoses: Asthma Discharge - Sign-Out/Discharge Documenting (check all that apply): Patient Departure Patient Received Moderate/Deep Sedation with Procedure: No - Discharge Plan Condition: Good Disposition: HOME Prescriptions: Albuterol 2.5MG/3ML (0.083%)* [Ventolin 2.5 MG/3 ML NEB.[email or web address]*] 2.5 mg INH Q4H # 20 [email or web address] Albuterol HFA INHALER* [Ventolin HFA Inhaler*] 1 puff INH Q4H PRN #1 mdi PRN Reason: Sob/Wheezing Montelukast Sodium TAB* [Singulair TAB*] 10 mg PO DAILY #30 tab predniSONE TAB* [Deltasone TAB*] 50 mg PO DAILY #4 tab Patient Education Materials: Asthma (ED) Referrals: [facility] [Outside] Additional Instructions: Use inhaler up to two puffs every 4 hours for cough and wheezing Take steroid once a day for 4 more days starting tomorrow Take Tylenol or ibuprofen for pain every 6 hours Return to ED if develop severe shortness of breath, worsening chest pain, or any new or worsening symptoms - Billing Disposition and Condition Condition: GOOD Disposition: Home
[2018-10-20 21:26] VITALS: BP 123/73
== END 2018-10-20 21:23 | disposition home or self-care (01) ==
LOC: ED 20:18
DX: J45.909 Unspecified asthma, uncomplicated (principal); Z88.1 Allergy status to other antibiotic agents; F17.200 Nicotine dependence, unspecified, uncomplicated
CPT/HCPCS: 99282; A9270-GY; J7512

== ENCOUNTER → 2018-11-03 19:42 | Emergency (ER) | payer SELFPAY ==
[~2018-11-03 19:42] MED LIST changes: -Albuterol HFA INHALER* 8 gm MDI INH ONE; +Albuterol HFA INHALER* 8 gm MDI INH PRN; -Dexamethasone IV* 4 MG/ML 1 ML (4 MG) IM ONE
--- NOTE | 2018-11-03 20:32 | ED ---
Asthma - HPI Summary HPI Summary: Patient with history of asthma Complains of having lost her inhaler today. Denies SOB. Patient wants replacement inhaler. Denies any other pain injury or symptoms. - History of Current Complaint Chief Complaint: EDMedicationRefill Stated Complaint: ASTHMA PER PT Time Seen by Provider: 11/03/18 20:03 Hx Obtained From: Patient Current Severity: None Pain Intensity: 0 Pain Scale Used: 0-10 Numeric - Allergy/Home Medications Allergies/Adverse Reactions: Allergies Allergy/AdvReac Type Severity Reaction Status Date / Time cefaclor [From Ceclor] Allergy Unknown Verified 11/03/18 21:15 Reaction Details levofloxacin [From Levaquin] Allergy Unknown Verified 11/03/18 21:15 Reaction Details PMH/Surg Hx/FS Hx/Imm Hx Endocrine/Hematology History: Denies: Hx Diabetes Cardiovascular History: Denies: Hx Hypertension Respiratory History: Reports: Hx Asthma History: Denies: Hx Dialysis Musculoskeletal History: Denies: Hx Gout Sensory History: Denies: Hx Eye Injury, Hx Deafness Opthamlomology History: Denies: Hx Eye Injury Neurological History: Denies: Hx Dementia Psychiatric History: Denies: Hx Autism - Surgical History Surgery Procedure, Year, and Place: 2 HERNIA REPAIR AND TONSILLECTOMY - Immunization History Date of Influenza Vaccine: none Infectious Disease History: No Infectious Disease History: Denies: Traveled Outside the US in Last 30 Days - Family History Known Family History: Positive: Other - UNKNOWN: PATIENT'S PARENTS WHEN SHE WAS VERY YOUNG - Social History Alcohol Use: Occasionally Hx Substance Use: No Substance Use Type: Reports: None Hx Tobacco Use: Yes Smoking Status (MU): Light Every Day Tobacco Smoker Review of Systems Constitutional: Negative Eyes: Negative ENT: Negative Cardiovascular: Negative Respiratory: Negative Gastrointestinal: Negative Genitourinary: Negative Musculoskeletal: Negative Skin: Negative Neurological: Negative Psychological: Normal All Other Systems Reviewed And Are Negative: Yes Physical Exam - Summary Physical Exam Summary: . Mild wheeze on right side. Left-sided clear to auscultation Triage Information Reviewed: Yes Vital Signs On Initial Exam: Initial Vitals Temp Pulse Resp BP Pulse Ox 97.4 F 114 20 123/95 98 11/03/18 19:45 11/03/18 19:45 11/03/18 19:45 11/03/18 19:45 11/03/18 19:45 Vital Signs Reviewed: Yes Appearance: Positive: Well-Appearing Skin: Positive: Warm Head/Face: Positive: Normal Head/Face Inspection Eyes: Positive: Normal ENT: Positive: Normal ENT inspection Neck: Positive: Supple Respiratory/Lung Sounds: Positive: Wheezes - . Mild wheezes on right side. Left side clear to auscultation. Cardiovascular: Positive: Normal Abdomen Description: Positive: Nontender Musculoskeletal: Positive: Normal Neurological: Positive: Normal Psychiatric: Positive: Normal AVPU Assessment: Alert - Stephanie Coma Scale Best Eye Response: 4 - Spontaneous Best Motor Response: 6 - Obeys Commands Best Verbal Response: 5 - Oriented Coma Scale Total: 15 Diagnostics - Vital Signs Vital Signs Temp Pulse Resp BP Pulse Ox 11/03/18 19:45 97.4 F 114 20 123/95 98 - Laboratory Lab Statement: Any lab studies that have been ordered have been reviewed, and results considered in the medical decision making process. Asthma Course/Dx - Course Course Of Treatment: Patient with history of asthma Complains of having lost her inhaler today. Denies SOB. Patient wants replacement inhaler. Denies any other pain injury or symptoms. Physical exam: Mild wheeze on right side. Left- sided clear to auscultation. Vital signs within normal limits. Patient received DuoNeb treatment here. Patient states she feels good to go home with inhaler. Patient given inhaler here in ED. Rx for same - Diagnoses Provider Diagnoses: Asthma Discharge - Sign-Out/Discharge Documenting (check all that apply): Patient Departure Patient Received Moderate/Deep Sedation with Procedure: No - Discharge Plan Condition: Stable Disposition: HOME Prescriptions: Albuterol HFA INHALER* [Ventolin HFA Inhaler*] 2 puff INH Q4H PRN 30 Days #1 mdi PRN Reason: Sob/Wheezing Patient Education Materials: Asthma (ED) Referrals: No Primary Care Phys,NOPCP [Primary Care Provider] - [facility] [Outside] Additional Instructions: Use inhaler as directed. Follow-up with primary care. Return to the ED for any new or worsening symptoms. - Billing Disposition and Condition Condition: STABLE Disposition: Home
[2018-11-03 21:13] VITALS: BP 121/84
== END | disposition home or self-care (01) ==
LOC: ED 19:42
DX: J45.909 Unspecified asthma, uncomplicated (principal); F17.210 Nicotine dependence, cigarettes, uncomplicated
CPT/HCPCS: 99282; A9270-GY

== ENCOUNTER → 2018-11-19 20:15 | Emergency (ER) | payer SELFPAY ==
--- NOTE | 2018-11-19 21:52 | ED ---
Skin Complaint - HPI Summary HPI Summary: 28 year old female presents to the emergency department for evaluation of painful lump on her tailbone. This problem has been present for 2 days and is constant. Pt reports pain with sitting. Pt has a history of recurring pilonidial cysts. She denies any fever, chills, N/V, diarrhea, incontinence, saddle anesthesia, SOB, and chest pain. Pt would also like a refill for her albuterol inhaler used to treat her asthma today. - History of Current Complaint Chief Complaint: EDRashSkinAbscess Time Seen by Provider: 11/19/18 21:14 Stated Complaint: CYST ON TAILBONE PER PT Hx Obtained From: Patient Pain Intensity: 6 - Allergy/Home Medications Allergies/Adverse Reactions: Allergies Allergy/AdvReac Type Severity Reaction Status Date / Time cefaclor [From Ceclor] Allergy Unknown Verified 11/03/18 21:15 Reaction Details levofloxacin [From Levaquin] Allergy Unknown Verified 11/03/18 21:15 Reaction Details PMH/Surg Hx/FS Hx/Imm Hx Previously Healthy: Yes Endocrine/Hematology History: Denies: Hx Diabetes Cardiovascular History: Denies: Hx Hypertension Respiratory History: Reports: Hx Asthma History: Denies: Hx Dialysis Musculoskeletal History: Denies: Hx Gout Sensory History: Denies: Hx Eye Injury, Hx Deafness Opthamlomology History: Denies: Hx Eye Injury Neurological History: Denies: Hx Dementia Psychiatric History: Denies: Hx Autism - Surgical History Surgery Procedure, Year, and Place: 2 HERNIA REPAIR AND TONSILLECTOMY - Immunization History Date of Influenza Vaccine: none Infectious Disease History: No Infectious Disease History: Denies: Traveled Outside the [place] in Last 30 Days - Family History Known Family History: Positive: Other - UNKNOWN: PATIENT'S PARENTS WHEN SHE WAS VERY YOUNG - Social History Alcohol Use: Occasionally Hx Substance Use: No Substance Use Type: Reports: None Hx Tobacco Use: Yes Smoking Status (MU): Light Every Day Tobacco Smoker Review of Systems Constitutional: Negative Negative: Fever, Chills Cardiovascular: Negative Negative: Palpitations, Chest Pain Respiratory: Negative Negative: Shortness Of Breath Gastrointestinal: Negative Negative: Abdominal Pain, Vomiting, Diarrhea, Nausea Genitourinary: Negative Positive: no symptoms reported Skin: Negative Negative: Rash Neurological: Negative Negative: Weakness, Paresthesia, Numbness All Other Systems Reviewed And Are Negative: Yes Physical Exam Triage Information Reviewed: Yes Vital Signs On Initial Exam: Initial Vitals Temp Pulse Resp BP Pulse Ox 97.8 F 112 20 125/95 96 11/19/18 20:32 11/19/18 20:32 11/19/18 20:32 11/19/18 20:32 11/19/18 20:32 Vital Signs Reviewed: Yes Appearance: Positive: Well-Appearing, No Pain Distress, Well-Nourished Skin: Positive: Warm, Skin Color Reflects Adequate Perfusion, Dry, Other - Tender, fluctuant, swollen nodule on the right buttock near the midline Head/Face: Positive: Normal Head/Face Inspection Eyes: Positive: Normal, EOMI ENT: Positive: Normal ENT inspection, Hearing grossly normal Neck: Positive: Supple, Nontender Respiratory/Lung Sounds: Positive: Clear to Auscultation, Breath Sounds Present Cardiovascular: Positive: Normal, RRR, Pulses are Symmetrical in both Upper and Lower Extremities Abdomen Description: Positive: Nontender Musculoskeletal: Positive: Normal Neurological: Positive: Normal, Sensory/Motor Intact, Alert, Oriented to Person Place, Time Psychiatric: Positive: Normal, Affect/Mood Appropriate Procedures - Incision and Drainage Right Buttocks Site: Right buttock near midline Anesthesia: Lidocaine - 4 mL of 1% lidocaine Instrument(s): Scalpel - #11 blade Packing: Other - iodoform packing Diagnostics - Vital Signs Vital Signs Temp Pulse Resp BP Pulse Ox 11/19/18 20:32 97.8 F 112 20 125/95 96 - Laboratory Lab Statement: Any lab studies that have been ordered have been reviewed, and results considered in the medical decision making process. Course/Dx - Course Course Of Treatment: Pt presents with a recurrence of a pilonidial cyst on her right buttock near the midline. An I&D was preformed today. The area was prepped with rubbing alcohol and injected with 4 mL of 1% lidocaine. A scalpel was used to drain the site and approximately 7 mL of liquid material was drained. Iodoform packing inserted and the area was dressed with tanisha and tape. Pt instructed to remove the packing in 4 days and return with any fever, chills, or new/worsening symptoms. Prescription for doxycycline 100mg BID x 7 days sent to pharmacy as well as albuterol inhaler. Pt referred to general surgeon for further evaluation and treatment of recurring pilionidial cysts. Assessment/Plan: Patient was seen in conjunction with the physician physician assistant student. All history, physical exam and medical decision making represented above her mind. The procedure was done with the assistance of the physician physician assistant student. Incision and drainage was performed and she'll be started on antibiotics. Follow up outpatient with surgery. - Differential Diagnoses - Skin Complaint Differential Diagnoses: Abscess, Cellulitis, Other - pilonidial abscess - Diagnoses Provider Diagnoses: Pilonidal abscess Discharge - Sign-Out/Discharge Documenting (check all that apply): Patient Departure Patient Received Moderate/Deep Sedation with Procedure: No - Discharge Plan Condition: Improved Disposition: HOME Prescriptions: Albuterol HFA INHALER* [Ventolin HFA Inhaler*] 2 puff INH Q4H PRN #1 mdi PRN Reason: Sob/Wheezing DOXYcycline CAP(*) [DOXYcycline 100MG CAP(*)] 100 mg PO BID #14 cap Patient Education Materials: Pilonidal Cyst (ED) Forms: *Work Release Referrals: Niraj García MD [Medical Doctor] - Additional Instructions: Packing can be removed in 2 days' time. Call the surgeon to schedule follow-up for cyst removal. Return if worse, new symptoms or other concerns. Tylenol, ibuprofen as needed for discomfort. - Billing Disposition and Condition Condition: IMPROVED Disposition: Home - Attestation Statements Document Initiated by Scribe: No
[2018-11-19 22:27] VITALS: BP 129/79
== END | disposition home or self-care (01) ==
LOC: ED 20:15
DX: L05.01 Pilonidal cyst with abscess (principal); J45.909 Unspecified asthma, uncomplicated; F17.210 Nicotine dependence, cigarettes, uncomplicated; Z88.3 Allergy status to other anti-infective agents
CPT/HCPCS: 10080; 99282

== ENCOUNTER 2018-12-10 20:10 | Emergency (ER) | payer SELFPAY ==
[2018-12-10 20:31] VITALS: BP 131/89
[2018-12-10] MEDS ORDERED: Albuterol HFA INHALER* 8 gm MDI INH PRN (21:31)
--- NOTE | 2018-12-10 21:35 | ED ---
Asthma - HPI Summary HPI Summary: Pt is a 28 y/o F who presents to the ED who states she needs a refill of her albuterol inhaler. She was here last week for a pilonidal cyst and shortness of breath and she got the abx prescribed but not her inhaler. She reports current cough and sob, but denies fevers or myalgia. - History of Current Complaint Chief Complaint: EDMedicationRefill Stated Complaint: "SOB NEEDS INHALER PER PT" Time Seen by Provider: 12/10/18 21:28 Hx Obtained From: Patient Onset/Duration: Sudden Onset, Lasting Minutes, Still Present Timing: Hours Initial Severity: Moderate Current Severity: None Pain Intensity: 0 Pain Scale Used: 0-10 Numeric Location/Character: Cough (Nonproductive) Aggravating Symptoms: Weather Change Alleviating Symptoms: Inhalers/Nebulizers Associated Signs and Symptoms: Positive: Shortness of Breath - Allergy/Home Medications Allergies/Adverse Reactions: Allergies Allergy/AdvReac Type Severity Reaction Status Date / Time cefaclor [From Ceclor] Allergy Unknown Verified 11/03/18 21:15 Reaction Details levofloxacin [From Levaquin] Allergy Unknown Verified 11/03/18 21:15 Reaction Details PMH/Surg Hx/FS Hx/Imm Hx Previously Healthy: Yes Endocrine/Hematology History: Denies: Hx Diabetes Cardiovascular History: Denies: Hx Hypertension Respiratory History: Reports: Hx Asthma History: Denies: Hx Dialysis Musculoskeletal History: Denies: Hx Gout Sensory History: Denies: Hx Eye Injury, Hx Deafness Opthamlomology History: Denies: Hx Eye Injury Neurological History: Denies: Hx Dementia Psychiatric History: Denies: Hx Autism - Surgical History Surgery Procedure, Year, and Place: 2 HERNIA REPAIR AND TONSILLECTOMY - Immunization History Date of Influenza Vaccine: none Infectious Disease History: No Infectious Disease History: Denies: Traveled Outside the [place] in Last 30 Days - Family History Known Family History: Positive: Other - UNKNOWN: PATIENT'S PARENTS WHEN SHE WAS VERY YOUNG - Social History Alcohol Use: Occasionally Hx Substance Use: No Substance Use Type: Reports: None Hx Tobacco Use: Yes Smoking Status (MU): Light Every Day Tobacco Smoker Review of Systems Negative: Fever Positive: Shortness Of Breath, Cough Negative: Myalgia All Other Systems Reviewed And Are Negative: Yes Physical Exam - Summary Physical Exam Summary: Appearance: Well-appearing, Well-nourished, lying in bed comfortable Skin: Warm, dry, no obvious rash Eyes: sclera anicteric, no conjunctival pallor ENT: mucous membranes moist Neck: deferred Respiratory: No signs of respiratory distress Cardiovascular: Appears well perfused, pulses are nml Abdomen: deferred Musculoskeletal: Moving all 4 extremities without obvious discomfort Neurological: Awake and alert, mentation is normal, speech is fluent and appropriate Psychiatric: affect is normal, does not appear anxious or depressed Triage Information Reviewed: Yes Vital Signs On Initial Exam: Initial Vitals Temp Pulse Resp BP Pulse Ox 98.3 F 100 18 131/89 97 12/10/18 20:26 12/10/18 20:26 12/10/18 20:26 12/10/18 20:26 12/10/18 20:26 Vital Signs Reviewed: Yes Diagnostics - Vital Signs Vital Signs Temp Pulse Resp BP Pulse Ox 12/10/18 20:26 98.3 F 100 18 131/89 97 - Laboratory Lab Statement: Any lab studies that have been ordered have been reviewed, and results considered in the medical decision making process. Asthma Course/Dx - Course Course Of Treatment: Pt is a 28 y/o F who presents to the ED who states she needs a refill of her albuterol inhaler. She was here last week for a pilonidal cyst and shortness of breath and she got the abx prescribed but not her inhaler. She reports current cough and sob, but denies fevers or myalgia. Pt will be discharged with a dx of asthma and her prescription will be sent in to her pharmacy. - Diagnoses Provider Diagnoses: Asthma Discharge - Sign-Out/Discharge Documenting (check all that apply): Patient Departure Patient Received Moderate/Deep Sedation with Procedure: No - Discharge Plan Condition: Stable Disposition: HOME Prescriptions: Albuterol HFA INHALER* [Ventolin HFA Inhaler*] 2 puff INH Q4H PRN #1 mdi PRN Reason: Wheezing Patient Education Materials: Asthma (ED) [facility]errals: [facility] [Outside] - If Needed - Billing Disposition and Condition Condition: STABLE Disposition: Home - Attestation Statements Document Initiated by Scribe: Yes Documenting Scribe: Christin Hoover Provider For Whom Scribe is Documenting (Include Credential): Dangelo Boyle MD. Scribe Attestation: I, Christin Hoover, scribed for Dangelo Boyle MD. on 12/15/18 at 1820. Scribe Documentation Reviewed: Yes Provider Attestation: The documentation as recorded by the Christin gonzalez accurately reflects the service I personally performed and the decisions made by me, Dangelo Boyle MD. Status of [place]ota Document: Viewed
== END 2018-12-10 22:26 | disposition home or self-care (01) ==
LOC: ED 20:10
DX: J45.909 Unspecified asthma, uncomplicated (principal); F17.210 Nicotine dependence, cigarettes, uncomplicated; Z88.3 Allergy status to other anti-infective agents
CPT/HCPCS: 99281; A9270-GY

== ENCOUNTER → 2018-12-31 20:09 | Emergency (ER) | payer SELFPAY ==
[~2018-12-31 20:09] MED LIST changes: -Albuterol HFA INHALER* 8 gm MDI INH PRN; -Albuterol/Ipratropium NEB.SOL* Albuterol 2.5 MG/Ipratropium 0.5 MG 3 ML INH ONE; +DOXYcycline CAP(*) 100 MG PO ONE
--- NOTE | 2018-12-31 22:15 | ED ---
Skin Complaint - HPI Summary HPI Summary: Patient with history of recurrent pilonidal cyst at the top of gluteal cleft complains of new onset redness, swelling at same site 4 hours. States this was drained one month ago here in the ED. Denies fever, cough, sore throat, CP , SOB, N/V/D, abdominal pain, change in urine, change in BM. Medical history is asthma. - History of Current Complaint Chief Complaint: EDRashSkinAbscess Time Seen by Provider: 12/31/18 21:22 Stated Complaint: CYST ON BUTT PER PT Hx Obtained From: Patient Onset/Duration: Started Hours Ago Skin Exposure Onset/Duration: Hours Ago Timing: Constant Onset Severity: Moderate Current Severity: Moderate Pain Intensity: 7 Pain Scale Used: 0-10 Numeric Skin Location: Discrete Aggravating Symptom(s): Touch Alleviating Symptom(s): Nothing Associated Signs & Symptoms: Negative - Allergy/Home Medications Allergies/Adverse Reactions: Allergies Allergy/AdvReac Type Severity Reaction Status Date / Time cefaclor [From Ceclor] Allergy Unknown Verified 11/03/18 21:15 Reaction Details levofloxacin [From Levaquin] Allergy Unknown Verified 11/03/18 21:15 Reaction Details PMH/Surg Hx/FS Hx/Imm Hx Endocrine/Hematology History: Denies: Hx Diabetes Cardiovascular History: Denies: Hx Hypertension Respiratory History: Reports: Hx Asthma History: Denies: Hx Dialysis Musculoskeletal History: Denies: Hx Gout Sensory History: Denies: Hx Eye Injury, Hx Deafness Opthamlomology History: Denies: Hx Eye Injury EENT History: Denies: Hx Deafness Neurological History: Denies: Hx Dementia Psychiatric History: Denies: Hx Autism - Surgical History Surgery Procedure, Year, and Place: 2 HERNIA REPAIR AND TONSILLECTOMY - Immunization History Date of Influenza Vaccine: none Infectious Disease History: No Infectious Disease History: Denies: Traveled Outside the [place] in Last 30 Days - Family History Known Family History: Positive: Other - UNKNOWN: PATIENT'S PARENTS WHEN SHE WAS VERY YOUNG - Social History Alcohol Use: Occasionally Hx Substance Use: No Substance Use Type: Reports: None Hx Tobacco Use: Yes Smoking Status (MU): Light Every Day Tobacco Smoker Review of Systems Constitutional: Negative Eyes: Negative ENT: Negative Cardiovascular: Negative Respiratory: Negative Gastrointestinal: Negative Genitourinary: Negative Musculoskeletal: Negative Skin: Other Neurological: Negative Psychological: Normal All Other Systems Reviewed And Are Negative: Yes Physical Exam - Summary Physical Exam Summary: Small 2 cm by 2centimeter area of erythema and swelling at top of gluteal cleft on left side. No evidence of purulent drainage. Triage Information Reviewed: Yes Vital Signs On Initial Exam: Initial Vitals Temp Pulse Resp BP Pulse Ox 97.9 F 100 20 126/94 96 12/31/18 20:11 12/31/18 20:11 12/31/18 20:11 12/31/18 20:11 12/31/18 20:11 Vital Signs Reviewed: Yes Appearance: Positive: Well-Appearing Skin: Positive: Warm Head/Face: Positive: Normal Head/Face Inspection Eyes: Positive: Normal Neck: Positive: Supple Respiratory/Lung Sounds: Positive: Clear to Auscultation Cardiovascular: Positive: Normal Abdomen Description: Positive: Nontender Musculoskeletal: Positive: Normal Neurological: Positive: Normal Psychiatric: Positive: Normal AVPU Assessment: Alert - [place] Coma Scale Best Eye Response: 4 - Spontaneous Best Motor Response: 6 - Obeys Commands Best Verbal Response: 5 - Oriented Coma Scale Total: 15 Diagnostics - Vital Signs Vital Signs Temp Pulse Resp BP Pulse Ox 12/31/18 21:40 128/87 12/31/18 20:11 97.9 F 100 20 126/94 96 - Laboratory Lab Statement: Any lab studies that have been ordered have been reviewed, and results considered in the medical decision making process. Course/Dx - Course Course Of Treatment: Patient with history of recurrent pilonidal cyst at the top of gluteal cleft complains of new onset redness, swelling at same site 4 hours. States this was drained one month ago here in the ED. Denies fever, cough, sore throat, CP, SOB, N/V/D, abdominal pain, change in urine, change in BM. Medical history is asthma. Physical exam:Small 2 cm by 2centimeter area of erythema and swelling at top of gluteal cleft on left side. No evidence of purulent drainage. Vital signs within normal limits. I&D performed with minimal purulent drainage. Very shallow abscess. No indication for packing. Patient started on doxycycline here in ED. Rx for same. - Diagnoses Provider Diagnoses: Abscess Discharge - Sign-Out/Discharge Documenting (check all that apply): Patient Departure Patient Received Moderate/Deep Sedation with Procedure: No - Discharge Plan Condition: Stable Disposition: HOME Prescriptions: DOXYcycline CAP(*) [DOXYcycline 100MG CAP(*)] 100 mg PO BID 10 Days #20 cap Patient Education Materials: Pilonidal Cyst (ED) Referrals: No Primary Care Phys,NOPCP [Primary Care Provider] - Gonzales Carias MD [Medical Doctor] - Additional Instructions: Take antibiotics as directed. Use warm compresses or warm shower water on site of cyst to help drain. Follow-up with surgery Dr. Gan for further evaluation. Return to the ED for any new or worsening symptoms. - Billing Disposition and Condition Condition: STABLE Disposition: Home
[2018-12-31 22:34] VITALS: BP 135/79
== END | disposition home or self-care (01) ==
LOC: ED 20:09
DX: L05.01 Pilonidal cyst with abscess (principal); Z88.1 Allergy status to other antibiotic agents; F17.200 Nicotine dependence, unspecified, uncomplicated
CPT/HCPCS: 10080; 99282; A9270-GY

== ENCOUNTER 2019-02-07 00:04 | Emergency (ER) | payer SELFPAY ==
[2019-02-07] MEDS ORDERED: Clindamycin CAP* 150 MG PO ONE (01:36)
[2019-02-07] MEDS ORDERED: Ibuprofen TAB* 800 MG PO ONE (01:38)
--- NOTE | 2019-02-07 01:59 | ED ---
Skin Complaint - HPI Summary HPI Summary: Patient is a 29 y/o F w/ PMHx of pilonidal cysts who presents to ED with complaints of pain at her sacrum area over the past few days. She denies fever and drainage from the area. She reports present Sx are similar to her previous pilonidal cysts. On triage, pain is rated 5/10, palpitation and pressure aggravates Sx. Home medications and allergies are reviewed. - History of Current Complaint Chief Complaint: EDRashSkinAbscess Time Seen by Provider: 02/07/19 01:27 Stated Complaint: CYST ON TAILBONE PER PT Hx Obtained From: Patient Onset/Duration: Started Days Ago, Still Present Skin Exposure Onset/Duration: Days Ago Timing: Constant, Lasting Days Current Severity: Moderate Pain Intensity: 5 Pain Scale Used: 0-10 Numeric Skin Location: Other: - tailbone area Character: Pain Aggravating Symptom(s): Touch - pressure Alleviating Symptom(s): Nothing Associated Signs & Symptoms: Negative - Allergy/Home Medications Allergies/Adverse Reactions: Allergies Allergy/AdvReac Type Severity Reaction Status Date / Time cefaclor [From Ceclor] Allergy Unknown Verified 02/07/19 00:11 Reaction Details levofloxacin [From Levaquin] Allergy Unknown Verified 02/07/19 00:11 Reaction Details PMH/Surg Hx/FS Hx/Imm Hx Endocrine/Hematology History: Denies: Hx Diabetes Cardiovascular History: Denies: Hx Hypertension Respiratory History: Reports: Hx Asthma History: Denies: Hx Dialysis Musculoskeletal History: Denies: Hx Gout Sensory History: Denies: Hx Eye Injury, Hx Deafness Opthamlomology History: Denies: Hx Eye Injury Neurological History: Denies: Hx Dementia Psychiatric History: Denies: Hx Autism - Surgical History Surgery Procedure, Year, and Place: 2 HERNIA REPAIR AND TONSILLECTOMY - Immunization History Date of Influenza Vaccine: none Infectious Disease History: No Infectious Disease History: Denies: Traveled Outside the [place] in Last 30 Days - Family History Known Family History: Positive: Other - UNKNOWN: PATIENT'S PARENTS WHEN SHE WAS VERY YOUNG - Social History Alcohol Use: None Hx Substance Use: No Substance Use Type: Reports: None Hx Tobacco Use: Yes Smoking Status (MU): Light Every Day Tobacco Smoker Review of Systems Negative: Fever Skin: Other - positive - pain at tailbone area, no drainage. All Other Systems Reviewed And Are Negative: Yes Physical Exam - Summary Physical Exam Summary: VITAL SIGNS: Reviewed. GENERAL: Patient is a well-developed and nourished female who is lying comfortable in the stretcher. Patient is not in any acute respiratory distress. HEAD AND FACE: No signs of trauma. No ecchymosis, hematomas or skull depressions. No sinus tenderness. EYES: PERRLA, EOMI x 2, No injected conjunctiva, no nystagmus. EARS: Hearing grossly intact. Ear canals and tympanic membranes are within normal limits. MOUTH: Oropharynx within normal limits. NECK: Supple, trachea is midline, no adenopathy, no JVD, no carotid bruit, no c- spine tenderness, neck with full ROM CHEST: Symmetric, no tenderness at palpation LUNGS: Clear to auscultation bilaterally. No wheezing or crackles. CVS: Regular rate and rhythm, S1 and S2 present, no murmurs or gallops appreciated. ABDOMEN: Soft, non-tender. No signs of distention. No rebound no guarding, and no masses palpated. Bowel sounds are normal. EXTREMITIES: FROM in all major joints, no edema, no cyanosis or clubbing. NEURO: Alert and oriented x 3. No acute neurological deficits. Speech is normal and follows commands. SKIN: Dry and warm; there is a local area of redness over tailbone area. Triage Information Reviewed: Yes Vital Signs On Initial Exam: Initial Vitals Temp Pulse Resp BP Pulse Ox 97.5 F 108 16 138/86 97 02/07/19 00:05 02/07/19 00:05 02/07/19 00:05 02/07/19 00:05 02/07/19 00:05 Vital Signs Reviewed: Yes Diagnostics - Vital Signs Vital Signs Temp Pulse Resp BP Pulse Ox 02/07/19 00:05 97.5 F 108 16 138/86 97 - Laboratory Lab Statement: Any lab studies that have been ordered have been reviewed, and results considered in the medical decision making process. Course/Dx - Course Course Of Treatment: Patient is a 29 y/o F w/ PMHx of pilonidal cysts who presents to ED with complaints of pain at her sacrum area over the past few days. She denies fever and drainage from the area. She reports present Sx are similar to her previous pilonidal cysts. On physical exam, it is noted that there is a local area of redness over tailbone area. Needle asipration yields no pus. During ED course, patient received motrin 800 mg PO and cleocin 300 mg PO. Patient discharged to home with prescription for clindamycin and ibuprofen as well as PCP follow up. - Diagnoses Provider Diagnoses: Cellulitis Discharge - Sign-Out/Discharge Documenting (check all that apply): Patient Departure - discharge Patient Received Moderate/Deep Sedation with Procedure: No - Discharge Plan Condition: Stable Disposition: HOME Prescriptions: Clindamycin Cap(NF) [Clindamycin Cap 300 mg Cap(NF)] 300 mg PO Q6H #30 cap Ibuprofen TAB* [Motrin TAB* 800 MG] 800 mg PO Q6H PRN #30 tab PRN Reason: Pain Patient Education Materials: Cellulitis (ED) Referrals: [facility] [Outside] - 3 Days Additional Instructions: RETURN TO ED FOR ANY NEW OR WORSENING SYMPTOMS. FOLLOW UP WITH YOUR PRIMARY CARE PHYSICIAN WITHIN THREE DAYS. - Attestation Statements Document Initiated by Melinaibe: Yes Documenting Scribe: LYNETTE GRIMM Provider For Whom Kota is Documenting (Include Credential): BOGDAN TRINIDAD MD Scribe Attestation: ILYNETTE, scribed for BOGDAN TRINIDAD MD on 02/07/19 at 0606. Status of Scribe Document: Ready
[2019-02-07 02:32] VITALS: BP 148/94
== END 2019-02-07 02:30 | disposition home or self-care (01) ==
LOC: ED 00:04
DX: L03.312 Cellulitis of back [any part except buttock and flank] (principal); F17.210 Nicotine dependence, cigarettes, uncomplicated; Z88.1 Allergy status to other antibiotic agents
CPT/HCPCS: 99282; A9270-GY

== ENCOUNTER 2019-02-09 17:37 | Emergency (ER) | payer SELFPAY ==
[2019-02-09] MEDS ORDERED: Lidocaine 2% EPI 1:200000 MPF* 10 ML VIAL INJ ONE (18:59)
[2019-02-09] MEDS ORDERED: Lidocaine 2% w/ EPI 1:200,000* 20 ML VIAL INJ ONE (19:06)
--- NOTE | 2019-02-09 19:33 | ED ---
Skin Complaint - HPI Summary HPI Summary: 29-year-old female presents with abscess to buttock for the past 3 days. She was seen her two days ago and placed on clindamycin. She's been having increasing swelling to the area. area was not I&D. No fevers. No spreading redness. No known history of MRSA. Has a medical conditions. - History of Current Complaint Chief Complaint: EDRashSkinAbscess Time Seen by Provider: 02/09/19 18:22 Stated Complaint: CYST ON TAILBONE PER PT Pain Intensity: 9 - Allergy/Home Medications Allergies/Adverse Reactions: Allergies Allergy/AdvReac Type Severity Reaction Status Date / Time cefaclor [From Ceclor] Allergy Unknown Verified 02/07/19 00:11 Reaction Details levofloxacin [From Levaquin] Allergy Unknown Verified 02/07/19 00:11 Reaction Details PMH/Surg Hx/FS Hx/Imm Hx Endocrine/Hematology History: Denies: Hx Diabetes Cardiovascular History: Denies: Hx Hypertension Respiratory History: Reports: Hx Asthma History: Denies: Hx Dialysis Musculoskeletal History: Denies: Hx Gout Sensory History: Denies: Hx Eye Injury, Hx Deafness Opthamlomology History: Denies: Hx Eye Injury Neurological History: Denies: Hx Dementia Psychiatric History: Denies: Hx Autism - Surgical History Surgery Procedure, Year, and Place: 2 HERNIA REPAIR AND TONSILLECTOMY - Immunization History Date of Influenza Vaccine: none Infectious Disease History: No Infectious Disease History: Denies: Traveled Outside the [place] in Last 30 Days - Family History Known Family History: Positive: Other - UNKNOWN: PATIENT'S PARENTS WHEN SHE WAS VERY YOUNG - Social History Alcohol Use: None Hx Substance Use: No Substance Use Type: Reports: None Hx Tobacco Use: Yes Smoking Status (MU): Light Every Day Tobacco Smoker Review of Systems Negative: Fever Negative: Chest Pain Negative: Shortness Of Breath Positive: Myalgia - abscess buttock All Other Systems Reviewed And Are Negative: Yes Physical Exam Triage Information Reviewed: Yes Vital Signs On Initial Exam: Initial Vitals Temp Pulse Resp BP Pulse Ox 98.3 F 110 18 125/101 99 02/09/19 17:44 02/09/19 17:44 02/09/19 17:44 02/09/19 17:44 02/09/19 17:44 Vital Signs Reviewed: Yes Appearance: Positive: Well-Appearing Skin: Positive: Warm, Dry, Other - 3cm by 2cm abscess on left buttock Head/Face: Positive: Normal Head/Face Inspection Eyes: Positive: Normal, Conjunctiva Clear ENT: Positive: Pharynx normal Respiratory/Lung Sounds: Positive: Clear to Auscultation, Breath Sounds Present Cardiovascular: Positive: Normal, RRR Musculoskeletal: Positive: Normal Neurological: Positive: Normal Psychiatric: Positive: Normal Procedures - Incision and Drainage butt Site: butt Anesthesia: Topical Instrument(s): Scalpel Diagnostics - Vital Signs Vital Signs Temp Pulse Resp BP Pulse Ox 02/09/19 17:44 98.3 F 110 18 125/101 99 - Laboratory Lab Statement: Any lab studies that have been ordered have been reviewed, and results considered in the medical decision making process. Course/Dx - Course Course Of Treatment: 29-year-old female presents with abscess to buttock for the past 3 days. She was seen her two days ago and placed on clindamycin. She' s been having increasing swelling to the area. area was not I&D. No fevers. No spreading redness. No known history of MRSA. Has a medical conditions. On exam has abscess of buttock. I&D area got copious amount of pus. Patient is currently on Clindamycin and will wait for final culture to make sure sensitive to. Gave referral to surgery to follow up. Patient understands agrees with plan. - Differential Diagnoses - Skin Complaint Differential Diagnoses: Abscess, Cellulitis, Contact Dermatitis - Diagnoses Provider Diagnoses: Pilonidal cyst Discharge - Sign-Out/Discharge Documenting (check all that apply): Patient Departure Patient Received Moderate/Deep Sedation with Procedure: No - Discharge Plan Condition: Good Disposition: HOME Patient Education Materials: Abscess (ED) Referrals: No Primary Care Phys,NOPCP [Primary Care Provider] - Mauricio Jiang MD [Medical Doctor] - Additional Instructions: continue antibiotic apply warm compresses follow up with surgery Return to ED if develop any new or worsening symptoms - Billing Disposition and Condition Condition: GOOD Disposition: Home - Attestation Statements Provider Attestation: I am administratively signing this document. I was available for consultation for this patient. I did not evaluate the patient, did not have a doctor/patient relationship with the patient, or participate in any medical decision making or disposition decisions unless I am specifically named in the chart as having consulted on the patient. If I have consulted on the patient, please see my own ED note on the patient encounter. Ellie Jama MD
[2019-02-09] MEDS ORDERED: A lbuterol Hfa (PREPAK) 1 MDI - ED TAKE HOME DISPENSING ONLY INHH ONE (19:34)
[2019-02-09 20:01] VITALS: BP 124/84
== END 2019-02-09 19:59 | disposition home or self-care (01) ==
LOC: ED 17:37
DX: L05.01 Pilonidal cyst with abscess (principal); F17.210 Nicotine dependence, cigarettes, uncomplicated; Z88.1 Allergy status to other antibiotic agents
CPT/HCPCS: 10080; 87070; 87205; 87640; 87641; 96372; 99282; A9270-GY

== ENCOUNTER 2019-03-01 20:56 | Emergency (ER) | payer SELFPAY ==
--- NOTE | 2019-03-01 22:55 | ED ---
Skin Complaint - HPI Summary HPI Summary: This pt is a 29 Y/O F presenting to [facility] with a CC of a pylenoidal cyst located on her R buttocks that started on 02/27/19 and has been reoccurring for the past couple months. She stated that it is not as big as it has been in the past. She stated that the pain is currently a 6-7/10 and is aggravated by touch. She stated that it has not currently burst but stated that it feels like there is purulence inside. She stated that she has a fever of 99.6. She denies any cough, chills, abdominal pain, N/V, and CP. She stated no alleviating factors. - History of Current Complaint Chief Complaint: EDRashSkinAbscess Time Seen by Provider: 03/01/19 22:34 Stated Complaint: LAVERNE HAS A CYST PER PT Hx Obtained From: Patient Onset/Duration: Started Days Ago - 2, Still Present, Worse Since - onset Skin Exposure Onset/Duration: Days Ago - 2 Timing: Constant Onset Severity: Moderate Current Severity: Moderate Pain Intensity: 7 Pain Scale Used: 0-10 Numeric Skin Location: Other: - L buttocks, just lateral to the midline Character: Swelling, Redness, Painful Aggravating Symptom(s): Other: - palpations Alleviating Symptom(s): Nothing Associated Signs & Symptoms: Negative - cough, chills, abdominal pain, N/V, and CP., Fever, Tenderness Related History: Foreign Body - Allergy/Home Medications Allergies/Adverse Reactions: Allergies Allergy/AdvReac Type Severity Reaction Status Date / Time cefaclor [From Ceclor] Allergy Unknown Verified 03/01/19 22:44 Reaction Details levofloxacin [From Levaquin] Allergy Unknown Verified 03/01/19 22:44 Reaction Details PMH/Surg Hx/FS Hx/Imm Hx Previously Healthy: Yes Endocrine/Hematology History: Denies: Hx Diabetes Cardiovascular History: Denies: Hx Hypertension Respiratory History: Reports: Hx Asthma History: Denies: Hx Dialysis Musculoskeletal History: Denies: Hx Gout Sensory History: Denies: Hx Eye Injury, Hx Deafness Opthamlomology History: Denies: Hx Eye Injury Neurological History: Denies: Hx Dementia Psychiatric History: Denies: Hx Autism - Surgical History Surgery Procedure, Year, and Place: 2 HERNIA REPAIR AND TONSILLECTOMY - Immunization History Date of Influenza Vaccine: none Infectious Disease History: No Infectious Disease History: Denies: Traveled Outside the [place] in Last 30 Days - Family History Known Family History: Positive: Other - UNKNOWN: PATIENT'S PARENTS WHEN SHE WAS VERY YOUNG - Social History Alcohol Use: None Hx Substance Use: No Substance Use Type: Reports: None Hx Tobacco Use: Yes Smoking Status (MU): Light Every Day Tobacco Smoker Review of Systems Positive: Fever - 99.6 per pt, Chills Negative: Chest Pain Negative: Cough Negative: Abdominal Pain, Vomiting, Nausea Skin: Other - cyst on L buttocks, lateral to midline. Raised, red, All Other Systems Reviewed And Are Negative: Yes Physical Exam - Summary Physical Exam Summary: VITAL SIGNS: Reviewed. GENERAL: Patient is a well-developed and nourished female who is lying comfortable in the stretcher. Patient is not in any acute respiratory distress. HEAD AND FACE: No signs of trauma. No ecchymosis, hematomas or skull depressions. No sinus tenderness. EYES: PERRLA, EOMI x 2, No injected conjunctiva, no nystagmus. EARS: Hearing grossly intact. Ear canals and tympanic membranes are within normal limits. MOUTH: Oropharynx within normal limits. NECK: Supple, trachea is midline, no adenopathy, no JVD, no carotid bruit, no c- spine tenderness, neck with full ROM CHEST: Symmetric, no tenderness at palpation LUNGS: Clear to auscultation bilaterally. No wheezing or crackles. CVS: Regular rate and rhythm, S1 and S2 present, no murmurs or gallops appreciated. ABDOMEN: Soft, non-tender. No signs of distention. No rebound no guarding, and no masses palpated. Bowel sounds are normal. EXTREMITIES: FROM in all major joints, no edema, no cyanosis or clubbing. NEURO: Alert and oriented x 3. No acute neurological deficits. Speech is normal and follows commands. SKIN: Pt does have 1 inch in diameter localized area of tenderness and redness, not tense but is soft over the L buttocks just Lateral to the midline. No pus was noted. Triage Information Reviewed: Yes Vital Signs On Initial Exam: Initial Vitals Temp Pulse Resp BP Pulse Ox 97.6 F 109 16 135/90 100 03/01/19 20:59 03/01/19 20:59 03/01/19 20:59 03/01/19 20:59 03/01/19 20:59 Vital Signs Reviewed: Yes Diagnostics - Vital Signs Vital Signs Temp Pulse Resp BP Pulse Ox 03/01/19 20:59 97.6 F 109 16 135/90 100 - Laboratory Lab Statement: Any lab studies that have been ordered have been reviewed, and results considered in the medical decision making process. Course/Dx - Course Course Of Treatment: This pt is a 29 Y/O F presenting to [facility] with a CC of a pylenoidal cyst located on her R buttocks that started on 02/27/19 and has been reoccurring for the past couple months. She stated that it is not as big as it has been in the past. Her PE found that Pt does have 1 inch in diameter localized area of tenderness and redness, not tense but is soft over the L buttocks just Lateral to the midline. No pus was noted. Pt stated that she did not want any ABX and stated that she will get the ABX treatment when she has her cyst drained. She will be discharged home with a Dx of celluitis and abcess of the buttocks. - Diagnoses Provider Diagnoses: Cellulitis and abscess of buttock Discharge - Sign-Out/Discharge Documenting (check all that apply): Patient Departure Patient Received Moderate/Deep Sedation with Procedure: No - Discharge Plan Condition: Stable Disposition: HOME Patient Education Materials: Cellulitis (ED) Referrals: Care [facility] [Outside] - 2 Days Additional Instructions: PLEASE RETURN TO THE ED IMMEDIATELY FOR WORSENING OR CONCERNING SYMPTOMS AND FOLLOW UP WITH [facility] IN 1-3 DAYS. - Attestation Statements Document Initiated by Scribe: Yes Documenting Scribe: Viet Gramajo Provider For Whom Melinaibe is Documenting (Include Credential): Bonnie Segal MD Scribe Attestation: Viet Diego, scribed for Bonnie Segal MD on 03/01/19 at 2553. Status of Scribe Document: Ready
[2019-03-01 23:07] VITALS: BP 123/83
[2019-03-02] MEDS ORDERED: Albuterol HFA INHALER* 8 gm MDI INH SCH (23:30)
== END 2019-03-01 23:06 | disposition home or self-care (01) ==
LOC: ED 20:56
DX: L03.317 Cellulitis of buttock (principal); L02.31 Cutaneous abscess of buttock; Z88.1 Allergy status to other antibiotic agents; F17.200 Nicotine dependence, unspecified, uncomplicated
CPT/HCPCS: 99282; A9270-GY

== ENCOUNTER 2019-04-08 12:23 | Emergency (ER) | payer SELFPAY ==
[2019-04-08] MEDS ORDERED: methylPREDNISolone 125 MG* 2 ML VIAL IV ONE (13:58)
[2019-04-08] MEDS ORDERED: Albuterol 0.5% CONC NEB.SOL* 5 MG/ML 20 ml BOT INH ONE (13:58)
[2019-04-08] MEDS ORDERED: Albuterol (2.5 MG) 0.5 % CONC 2.5 MG/0.5 ML NEB.SOLN (ICU and ED only) INH ONE (14:08)
--- NOTE | 2019-04-08 14:30 | ED ---
Respiratory - HPI Summary HPI Summary: This patient is a 29 year old F presenting to [facility] with a chief complaint of SOB since 04/05/19. Patient states that she had what she thinks is a upper respiratory that may have turned into a sinus infection. Patient reports cough ( non productive) and nasal discomfort w post nasal drip. Patient has PMHx of asthma. Patient denies fevers, sinus pain or VIDES. Allergies Allergy/AdvReac Type Severity Reaction Status Date / Time cefaclor [From Ceclor] Allergy Unknown Verified 04/08/19 12:26 Reaction Details levofloxacin [From Levaquin] Allergy Unknown Verified 04/08/19 12:26 Reaction Details Home Medications Medication Instructions Recorded Confirmed Type Albuterol HFA INHALER* [Ventolin 2 puff INH Q4H PRN #1 mdi 12/10/18 04/08/19 Rx HFA Inhaler*] Albuterol 2.5MG/3ML (0.083%)* 2.5 mg INH Q4H 1 Days #6 neb.marisa 04/08/19 Rx [Ventolin 2.5 MG/3 ML NEB.MARISA*] Albuterol HFA INHALER* [Ventolin 2 puff INH Q4H PRN 30 Days #1 mdi 04/08/19 Rx HFA Inhaler*] predniSONE TAB* [Deltasone TAB*] 50 mg PO DAILY 4 Days #4 tab 04/08/19 Rx - History of Current Complaint Chief Complaint: EDUpperRespComplaint Stated Complaint: COLD/ASTHMA ISSUES PER PT Time Seen by Provider: 04/08/19 13:58 Hx Obtained From: Patient Onset/Duration: Gradual Onset, Lasting Days - 04/05/19 Current Severity: Mild Pain Intensity: 2 Character: Cough (Nonproductive) Sputum Amount: None Aggravating Factor(s): Nothing Alleviating Factor(s): Nothing Associated Signs and Symptoms: Sinus Discomfort - Allergy/Home Medications Allergies/Adverse Reactions: Allergies Allergy/AdvReac Type Severity Reaction Status Date / Time cefaclor [From Ceclor] Allergy Unknown Verified 04/08/19 12:26 Reaction Details levofloxacin [From Levaquin] Allergy Unknown Verified 04/08/19 12:26 Reaction Details PMH/Surg Hx/FS Hx/Imm Hx Endocrine/Hematology History: Denies: Hx Diabetes Cardiovascular History: Denies: Hx Hypertension Respiratory History: Reports: Hx Asthma History: Denies: Hx Dialysis Musculoskeletal History: Denies: Hx Gout Sensory History: Denies: Hx Eye Injury, Hx Deafness Opthamlomology History: Denies: Hx Eye Injury Neurological History: Denies: Hx Dementia Psychiatric History: Denies: Hx Autism - Surgical History Surgery Procedure, Year, and Place: 2 HERNIA REPAIR AND TONSILLECTOMY - Immunization History Date of Influenza Vaccine: none Infectious Disease History: No Infectious Disease History: Denies: Traveled Outside the [place] in Last 30 Days - Family History Known Family History: Positive: Other - cancer - Social History Alcohol Use: None Hx Substance Use: No Substance Use Type: Reports: None Hx Tobacco Use: Yes Smoking Status (MU): Light Every Day Tobacco Smoker Review of Systems Negative: Fever Positive: Cough All Other Systems Reviewed And Are Negative: Yes Physical Exam - Summary Physical Exam Summary: Constitutional: Well-developed, Well-nourished, Alert. (-) Distressed Skin: Warm, Dry HENT: Normocephalic; Atraumatic, +congestion, no sinus tenderness. Eyes: Conjunctiva normal Neck: Musculoskeletal ROM normal neck. (-) JVD, (-) Stridor, (-) Nuchal rigidity Cardio: Rhythm regular, rate normal, Heart sounds normal; Intact distal pulses; Radial pulses are 2+ and symmetric. (-) Murmur Pulmonary/Chest wall: Effort normal. (-) Respiratory distress, mild bilateral wheezes, (-) Rales Abd: Soft, (-) tenderness, (-) Distension, (-) Guarding, (-) Rebound Musculoskeletal: (-) Edema Lymph: (-) Cervical adenopathy Neuro: Alert, Oriented x3 Psych: Mood and affect Normal Triage Information Reviewed: Yes Vital Signs On Initial Exam: Initial Vitals Temp Pulse Resp BP Pulse Ox 98.3 F 110 20 120/94 99 04/08/19 12:26 04/08/19 12:26 04/08/19 12:26 04/08/19 12:26 04/08/19 12:26 Vital Signs Reviewed: Yes Diagnostics - Vital Signs Vital Signs Temp Pulse Resp BP Pulse Ox 04/08/19 12:26 98.3 F 110 20 120/94 99 - Laboratory Lab Statement: Any lab studies that have been ordered have been reviewed, and results considered in the medical decision making process. Re-Evaluation - Re-Evaluation First Eval Change: Improved - Patient feeling improved after albuterol, HR elevated likely 2/2 albuterol. NAD. Given prednisone Disposition - Course Course Of Treatment: 29 y/o F w history of asthma presents with 4 days of upper respiratory symptoms including congestion, runny nose, dry cough. Denies productive cough. Afebrile, low suspicion for pneumonia. Patient requesting albuterol and would like to be discharged. 5mg albuterol given via nebulizer. Patient did not want IV steroids, will give by mouth prednisone. Albuterol neb and inhaler refilled, prednisone sent to pharmacy - Diagnoses Provider Diagnoses: URI (upper respiratory infection), Asthma Discharge ED - Sign-Out/Discharge Documenting (check all that apply): Patient Departure - discharge Patient Received Moderate/Deep Sedation with Procedure: No - Discharge Plan Condition: Stable Disposition: HOME Prescriptions: Albuterol 2.5MG/3ML (0.083%)* [Ventolin 2.5 MG/3 ML NEB.MARISA*] 2.5 mg INH Q4H 1 Days #6 neb.marisa Albuterol HFA INHALER* [Ventolin HFA Inhaler*] 2 puff INH Q4H PRN 30 Days #1 mdi PRN Reason: Wheezing predniSONE TAB* [Deltasone TAB*] 50 mg PO DAILY 4 Days #4 tab Patient Education Materials: Asthma (ED) Forms: *Work Release Referrals: Care [facility] [Outside] - 2 Weeks Additional Instructions: You were seen in the emergency department for asthma. Please take prednisone for 4 more days, first dose today. Please return for worsening trouble breathing, shortness of breath, fevers, productive cough or if you're concerned. If any studies were not completed at the time of discharge you will be called with the relevant results. Please follow up with your primary care doctor in next 2-3 days and return to emergency department for worsening or concerning symptoms. It was a pleasure taking care of you today. - Billing Disposition and Condition Condition: STABLE Disposition: Home - Attestation Statements Document Initiated by Scribe: Yes Documenting Scribe: Desire Sosa Provider For Whom Melinaibrosanne is Documenting (Include Credential): MD Melina Laneibrosanne Attestation: I, Desire Sosa , scribed for Dr. Ellie Jama MD on 04/08/19 at 2249. Scribe Documentation Reviewed: Yes Provider Attestation: The documentation as recorded by the scribe, Desire Sosa accurately reflects the service I personally performed and the decisions made by me, Dr. Ellie Jama MD Status of Scribe Document: Viewed
[2019-04-08 15:15] VITALS: BP 0/0
[2019-04-09] MEDS ORDERED: predniSONE TAB* 50 MG PO ONE (14:40)
== END 2019-04-08 15:15 | disposition home or self-care (01) ==
LOC: ED 12:23
DX: J06.9 Acute upper respiratory infection, unspecified (principal); J45.909 Unspecified asthma, uncomplicated; F17.200 Nicotine dependence, unspecified, uncomplicated; Z88.1 Allergy status to other antibiotic agents; Z79.899 Other long term (current) drug therapy
CPT/HCPCS: 96374; 99282; J7611

== ENCOUNTER 2019-04-14 12:28 | Emergency (ER) | payer SELFPAY ==
[2019-04-14] MEDS ORDERED: Albuterol/Ipratropium NEB.SOL* Albuterol 2.5 MG/Ipratropium 0.5 MG 3 ML INH ONE (14:15)
[2019-04-14] MEDS ORDERED: guaiFENesin/CODIEN 100MG-10MG* 5 ML UDC PO ONE (14:20)
[2019-04-14] MEDS ORDERED: Albuterol HFA INHALER* 8 gm MDI INH ONE (14:20)
[2019-04-14] MEDS ORDERED: predniSONE TAB* 20 MG ONE (15:13)
[2019-04-14] MEDS ORDERED: predniSONE TAB* 10 MG ONE (15:13)
--- NOTE | 2019-04-14 15:13 | ED ---
Respiratory - HPI Summary HPI Summary: This patient is a 29-year-old female presenting to the ED with wheezing, shortness of breath and recent cold-like symptoms and cough. States has been present 1 week and has been worsening. He is currently out of her albuterol inhaler. She feels this is an asthma exacerbation, however she does endorse some throat pain as well. Endorses cough without production. She has not been using her home nebulizer treatments and has recently finished a 3 day course of steroids several days ago. Patient has not followed up with pulmonology. She is well-known to [facility] as she has persistent asthma symptoms. Symptoms are not worse or better with positioning or rest. Denies any fevers, sweats, chills. - History of Current Complaint Chief Complaint: EDUpperRespComplaint Stated Complaint: ASTHMA/COLD PER PT Time Seen by Provider: 04/14/19 12:59 Hx Obtained From: Patient Onset/Duration: Sudden Onset Timing: Constant Initial Severity: Severe Current Severity: Severe Pain Intensity: 4 Character: Wheezing, Cough (Productive) Sputum Amount: None Sputum Color: Clear Aggravating Factor(s): Nothing Alleviating Factor(s): Nothing Associated Signs and Symptoms: Negative - Risk Factors Status Asthmaticus Risk Factors: Negative Pulmonary Embolism Risk Factors: Negative Cardiac Risk Factors: Negative Tuberculosis Risk Factors: Negative - Allergy/Home Medications Allergies/Adverse Reactions: Allergies Allergy/AdvReac Type Severity Reaction Status Date / Time cefaclor [From Ceclor] Allergy Unknown Verified 04/08/19 12:26 Reaction Details levofloxacin [From Levaquin] Allergy Unknown Verified 04/08/19 12:26 Reaction Details PMH/Surg Hx/FS Hx/Imm Hx Previously Healthy: Yes Endocrine/Hematology History: Denies: Hx Diabetes Cardiovascular History: Denies: Hx Hypertension Respiratory History: Reports: Hx Asthma History: Denies: Hx Dialysis Musculoskeletal History: Denies: Hx Gout Sensory History: Denies: Hx Eye Injury, Hx Deafness Opthamlomology History: Denies: Hx Eye Injury Neurological History: Denies: Hx Dementia Psychiatric History: Denies: Hx Autism - Surgical History Surgery Procedure, Year, and Place: 2 HERNIA REPAIR AND TONSILLECTOMY - Immunization History Date of Influenza Vaccine: none Hx Pertussis Vaccination: No Immunizations Up to Date: Yes Infectious Disease History: No Infectious Disease History: Denies: Traveled Outside the [place] in Last 30 Days - Family History Known Family History: Positive: Other - cancer - Social History Occupation: Employed Full-time Lives: With Family Alcohol Use: None Hx Substance Use: No Substance Use Type: Reports: None Hx Tobacco Use: Yes Smoking Status (MU): Light Every Day Tobacco Smoker Review of Systems Constitutional: Negative Negative: Fever, Chills, Fatigue, Skin Diaphoresis Negative: Palpitations, Chest Pain Positive: Shortness Of Breath, Cough Negative: Abdominal Pain, Vomiting, Diarrhea Positive: see HPI Negative: Arthralgia, Myalgia Negative: Rash, Bruising Neurological: Negative All Other Systems Reviewed And Are Negative: Yes Physical Exam Triage Information Reviewed: Yes Vital Signs On Initial Exam: Initial Vitals Temp Pulse Resp BP Pulse Ox 98.2 F 110 18 144/86 99 04/14/19 12:31 04/14/19 12:31 04/14/19 12:31 04/14/19 12:31 04/14/19 12:31 Vital Signs Reviewed: Yes Appearance: Positive: Well-Appearing, Well-Nourished Skin: Positive: Warm, Skin Color Reflects Adequate Perfusion Head/Face: Positive: Normal Head/Face Inspection Eyes: Positive: EOMI, SHANTEL, Conjunctiva Clear Respiratory/Lung Sounds: Positive: Wheezes Cardiovascular: Positive: RRR, Pulses are Symmetrical in both Upper and Lower Extremities Musculoskeletal: Positive: Normal, Strength/ROM Intact Psychiatric: Positive: Normal, Affect/Mood Appropriate AVPU Assessment: Alert Diagnostics - Vital Signs Vital Signs Temp Pulse Resp BP Pulse Ox 04/14/19 14:26 104 16 98 04/14/19 12:31 98.2 F 110 18 144/86 99 - Laboratory Lab Statement: Any lab studies that have been ordered have been reviewed, and results considered in the medical decision making process. Disposition - Course Course Of Treatment: During his course of treatment, the patient is evaluated for wheezing, cough and congestion. Denies any fevers, sweats, chills. Patient is given a nebulizer treatment in the ED with good relief. She was also given an albuterol inhaler as she is currently out. On physical examination, she has wheezing bilaterally with somewhat decreased breath sounds in the lung bases. She does have persistent cough, however no production. Patient appears otherwise well. Patient remains afebrile and vital signs are stable. She was also given Robitussin with codeine in the ED with good relief and will be started on a tapered dose of steroids. She is prescribed albuterol and DuoNeb for at home. - Differential Dx - Cardiopulmonary Differential Diagnoses - Cardiopulmonary: Other - Wheezing, shortness of breath , respiratory distress, asthma - Diagnoses Provider Diagnoses: Asthma exacerbation Discharge ED - Sign-Out/Discharge Documenting (check all that apply): Patient Departure Patient Received Moderate/Deep Sedation with Procedure: No - Discharge Plan Condition: Stable Disposition: HOME Prescriptions: Albuterol HFA INHALER* [Ventolin HFA Inhaler*] 1 puff INH Q4H PRN #1 mdi PRN Reason: Shortness Of Breath Ipratropium 0.5MG/2.5ML NEB* [Atrovent 0.5 MG NEB.MARISA*] 0.5 mg INH Q4H PRN #20 meb.soln PRN Reason: Sob/Wheezing predniSONE [Prednisone 20 MG TAB] 20 mg PO SEE INSTRUCTIONS #18 tablet Patient Education Materials: Asthma (ED) Referrals: No Primary Care Phys,NOPCP [Primary Care Provider] - Additional Instructions: Over the counter cough medication humidifier in the home will help Albuterol inhaler every 4 hours as needed For symptoms not well controlled, you may use the ipratroprium neb treatments Take steroids as prescribed - Billing Disposition and Condition Condition: STABLE Disposition: Home
[2019-04-14 15:26] VITALS: BP 109/90
[2019-04-15] MEDS ORDERED: predniSONE TAB* 50 MG PO ONE (14:20)
== END 2019-04-14 15:25 | disposition home or self-care (01) ==
LOC: ED 12:28
DX: J45.901 Unspecified asthma with (acute) exacerbation (principal); Z88.1 Allergy status to other antibiotic agents; F17.200 Nicotine dependence, unspecified, uncomplicated
CPT/HCPCS: 99282; A9270-GY; J7512

== ENCOUNTER 2019-04-26 23:22 | Emergency (ER) | payer SELFPAY ==
[2019-04-27] MEDS ORDERED: Albuterol HFA INHALER* 8 gm MDI INH ONE (01:12)
--- NOTE | 2019-04-27 01:14 | ED ---
Asthma - HPI Summary HPI Summary: Patient with history of asthma complains of one episode of chest tightness and shortness of breath today which has since resolved. Patient states she is out of inhaler. Denies any other symptoms, pain or injury. Medical history is asthma. - History of Current Complaint Chief Complaint: EDShortnessOfBreath Stated Complaint: ASTHMA ISSUES PER PT Time Seen by Provider: 04/27/19 01:07 Hx Obtained From: Patient Onset/Duration: Sudden Onset Timing: Hours Initial Severity: Moderate Current Severity: None Pain Intensity: 0 Pain Scale Used: 0-10 Numeric Location/Character: Wheezing Aggravating Symptoms: Exertion, Weather Change Alleviating Symptoms: Nothing Associated Signs and Symptoms: Positive: Shortness of Breath - Allergy/Home Medications Allergies/Adverse Reactions: Allergies Allergy/AdvReac Type Severity Reaction Status Date / Time cefaclor [From Ceclor] Allergy Unknown Verified 04/30/19 21:37 Reaction Details levofloxacin [From Levaquin] Allergy Unknown Verified 04/30/19 21:37 Reaction Details PMH/Surg Hx/FS Hx/Imm Hx Endocrine/Hematology History: Denies: Hx Diabetes Cardiovascular History: Denies: Hx Hypertension Respiratory History: Reports: Hx Asthma History: Denies: Hx Dialysis Musculoskeletal History: Denies: Hx Gout Sensory History: Denies: Hx Eye Injury Opthamlomology History: Denies: Hx Eye Injury EENT History: Denies: Hx Deafness Neurological History: Denies: Hx Dementia Psychiatric History: Denies: Hx Autism - Surgical History Surgery Procedure, Year, and Place: 2 HERNIA REPAIR AND TONSILLECTOMY - Immunization History Date of Influenza Vaccine: none Infectious Disease History: No Infectious Disease History: Denies: Traveled Outside the US in Last 30 Days - Family History Known Family History: Positive: Other - cancer - Social History Alcohol Use: None Hx Substance Use: No Substance Use Type: Reports: None Hx Tobacco Use: Yes Smoking Status (MU): Light Every Day Tobacco Smoker Review of Systems Constitutional: Negative Eyes: Negative ENT: Negative Cardiovascular: Negative Positive: Shortness Of Breath Gastrointestinal: Negative Genitourinary: Negative Musculoskeletal: Negative Skin: Negative Neurological: Negative Psychological: Normal All Other Systems Reviewed And Are Negative: Yes Physical Exam Triage Information Reviewed: Yes Vital Signs On Initial Exam: Initial Vitals Temp Pulse Resp BP Pulse Ox 98.2 F 113 16 137/114 98 04/26/19 23:29 04/26/19 23:29 04/26/19 23:29 04/26/19 23:29 04/26/19 23:29 Vital Signs Reviewed: Yes Appearance: Positive: Well-Appearing Skin: Positive: Warm Head/Face: Positive: Normal Head/Face Inspection Eyes: Positive: Normal ENT: Positive: Normal ENT inspection Neck: Positive: Supple Respiratory/Lung Sounds: Positive: Clear to Auscultation Cardiovascular: Positive: Normal Abdomen Description: Positive: Nontender Musculoskeletal: Positive: Normal Neurological: Positive: Normal Psychiatric: Positive: Normal AVPU Assessment: Alert - Stephanie Coma Scale Best Eye Response: 4 - Spontaneous Best Motor Response: 6 - Obeys Commands Best Verbal Response: 5 - Oriented Coma Scale Total: 15 Procedures - Sedation Patient Received Moderate/Deep Sedation with Procedure: No Diagnostics - Vital Signs Vital Signs Temp Pulse Resp BP Pulse Ox 04/26/19 23:29 98.2 F 113 16 137/114 98 - Laboratory Lab Statement: Any lab studies that have been ordered have been reviewed, and results considered in the medical decision making process. Asthma Course/Dx - Course Course Of Treatment: Patient with history of asthma complains of one episode of chest tightness and shortness of breath today which has since resolved. Patient states she is out of inhaler. Denies any other symptoms, pain or injury. Medical history is asthma. Vital signs within normal limits. Physical exam unremarkable. Patient brought in with inhaler. Rx for same. - Diagnoses Provider Diagnoses: Asthma Discharge ED - Sign-Out/Discharge Documenting (check all that apply): Patient Departure - Discharge Plan Condition: Stable Disposition: HOME Prescriptions: Albuterol HFA INHALER* [Ventolin HFA Inhaler*] 2 puff INH Q4H PRN #1 mdi PRN Reason: Sob/Wheezing Patient Education Materials: Asthma (ED) Referrals: No Primary Care Phys,NOPCP [Primary Care Provider] - Additional Instructions: Use inhaler as directed when needed. Follow-up with primary care. Return to the ED for any new or worsening symptoms. - Billing Disposition and Condition Condition: STABLE Disposition: Home - Attestation Statements Provider Attestation: I was available for consult. This patient was seen by the NASIR. The patient was not presented to, seen by, or examined by me. Jian Calix MD
[2019-04-27 01:33] VITALS: BP 129/73
== END 2019-04-27 01:32 | disposition home or self-care (01) ==
LOC: ED 23:22
DX: J45.909 Unspecified asthma, uncomplicated (principal); F17.200 Nicotine dependence, unspecified, uncomplicated; Z88.1 Allergy status to other antibiotic agents
CPT/HCPCS: 99282; A9270-GY

== ENCOUNTER 2019-04-30 21:34 | Emergency (ER) | payer SELFPAY ==
[2019-04-30 23:39] LABS: ABS Basophils 0.1 10^3/ul (0-0.2); ABS Lymphocytes 1.5 10^3/ul (1.0-4.8); ABS Monocytes 0.3 10^3/ul (0-0.8); ABS Neutrophils 11.5 10^3/ul (1.5-7.7); Eosinophil % 0.4 %; Hematocrit 42 % (35-47); Hemoglobin 13.9 g/dL (12.0-16.0); Lymphocyte % 11.2 %; Mean Corpuscular HGB Conc 33 g/dL (31-36); Mean Corpuscular Hemoglobin 30 pg (27-31); Mean Corpuscular Volume 89 fL (80-97); Mean Platelet Volume 7.2 fL (7.4-10.4); Platelet Count 354 10^3/uL (150-450); Red Blood Count 4.68 10^6 /uL (3.70-4.87); Red Cell Distribution Width 14 % (10-15); White Blood Count 13.4 10^3/uL (3.5-10.8)
--- NOTE | 2019-04-30 23:39 | ED ---
Abdominal Pain/Female - HPI Summary HPI Summary: This patient is a 29 year old female presenting to [facility] with a chief complaint of RUQ pain since this morning. She says the pain has progressively gotten worse throughout the day at work. She states she eventually would not be able to stand up straight secondary to pain. She states she has had bronchitis and reports cough. She states the pain does not radiate. She states nothing makes it better or worse. She states she tried taking tylenol or ibuprofen. She denies n/v/d and fever. - History of Current Complaint Chief Complaint: EDAbdPain Stated Complaint: ABD PAIN PER PT Time Seen by Provider: 04/30/19 23:32 Hx Obtained From: Patient Onset/Duration: Lasting Hours Pain Intensity: 9 Pain Scale Used: 0-10 Numeric Location: Discrete At: RUQ Radiates: No Allergies/Adverse Reactions: Allergies Allergy/AdvReac Type Severity Reaction Status Date / Time cefaclor [From Ceclor] Allergy Unknown Verified 04/30/19 21:37 Reaction Details levofloxacin [From Levaquin] Allergy Unknown Verified 04/30/19 21:37 Reaction Details PMH/Surg Hx/FS Hx/Imm Hx Endocrine/Hematology History: Denies: Hx Diabetes Cardiovascular History: Denies: Hx Hypertension Respiratory History: Reports: Hx Asthma History: Denies: Hx Dialysis Musculoskeletal History: Denies: Hx Gout Sensory History: Denies: Hx Eye Injury, Hx Deafness Opthamlomology History: Denies: Hx Eye Injury Neurological History: Denies: Hx Dementia Psychiatric History: Denies: Hx Autism - Surgical History Surgery Procedure, Year, and Place: 2 HERNIA REPAIR AND TONSILLECTOMY - Immunization History Date of Influenza Vaccine: none Infectious Disease History: No Infectious Disease History: Denies: Traveled Outside the US in Last 30 Days - Family History Known Family History: Positive: Other - cancer - Social History Alcohol Use: None Hx Substance Use: No Substance Use Type: Reports: None Hx Tobacco Use: Yes Smoking Status (MU): Light Every Day Tobacco Smoker Review of Systems - ROS Summary Review of Systems Summary: Albuterol HFA INHALER* [Ventolin HFA Inhaler*] 2 puff INH Q4H PRN #1 mdi [Rx Confirmed 04/08/19] Albuterol 2.5MG/3ML (0.083%)* [Ventolin 2.5 MG/3 ML NEB.MARISA*] 2.5 mg INH Q4H 1 Days #6 neb.marisa 04/08/19 [Rx] Albuterol HFA INHALER* [Ventolin HFA Inhaler*] 2 puff INH Q4H PRN 30 Days #1 mdi 04/08/19 [Rx] predniSONE TAB* [Deltasone TAB*] 50 mg PO DAILY 4 Days #4 tab 04/08/19 [Rx] Albuterol HFA INHALER* [Ventolin HFA Inhaler*] 1 puff INH Q4H PRN #1 mdi [Rx] Ipratropium 0.5MG/2.5ML NEB* [Atrovent 0.5 MG NEB.MARISA*] 0.5 mg INH Q4H PRN #20 meb.soln 04/14/19 [Rx] predniSONE [Prednisone 20 MG TAB] 20 mg PO SEE INSTRUCTIONS #18 tablet 04/14/19 [Rx] Albuterol HFA INHALER* [Ventolin HFA Inhaler*] 2 puff INH Q4H PRN #1 mdi [Rx] Negative: Fever Positive: Cough Positive: Abdominal Pain. Negative: Vomiting, Diarrhea, Nausea All Other Systems Reviewed And Are Negative: Yes Physical Exam - Summary Physical Exam Summary: General: Morbidly Obese FEMALE. No acute distress at rest. HEENT: Normocephalic, Atraumatic. Eyes: Conjuctiva normal, PERRL. Ears: TMs within normal limits. Nares: (-) discharge, (-) erythema. Oropharynx: Clear, mucous membranes moist, (-) exudates. Neck: Soft, FROM, (-) lymphadenopathy, (-) thyromegaly, (-) JVD. Cardiovascular: Normal sinus rhythm, (-) murmur. Lungs: Clear to auscultation bilaterally (-) wheezes, (-) rales, (-) rhonchi. Abdomen: Soft, significant tenderness over the right lower ribs, mild RUQ tenderness, non-distended, (-) organomegaly, normal bowel sounds. Back: (-) CVA tenderness Extremities: No edema. Skin: Warm, dry, (-) rash. Neuro: Alert and oriented x3, no focal deficits. Psychiatric: Mood normal, affect normal. Triage Information Reviewed: Yes Vital Signs On Initial Exam: Initial Vitals Temp Pulse Resp BP Pulse Ox 97.5 F 114 16 137/91 96 04/30/19 21:35 04/30/19 21:35 04/30/19 21:35 04/30/19 21:35 04/30/19 21:35 Vital Signs Reviewed: Yes Procedures - Sedation Patient Received Moderate/Deep Sedation with Procedure: No Diagnostics - Vital Signs Vital Signs Temp Pulse Resp BP Pulse Ox 04/30/19 21:35 97.5 F 114 16 137/91 96 - Laboratory Result Diagrams: 04/30/19 23:24 04/30/19 23:24 Lab Statement: Any lab studies that have been ordered have been reviewed, and results considered in the medical decision making process. - Ultrasound No standard instances Ultrasound Interpretation Completed By: Radiologist Summary of Ultrasound Findings: Gallbladder: No acute sonographic pathology. ED Provider has reviewed this report. Abdominal Pain Fem Course/Dx - Course Course Of Treatment: This patient is a 29 year old female presenting to [facility] with a chief complaint of RUQ pain. Labs and Gallbladder US were unremarkable. A plan for discharge was discussed with the patient and she was agreeable with this plan. - Diagnoses Provider Diagnoses: Chest wall pain Discharge ED - Sign-Out/Discharge Documenting (check all that apply): Patient Departure - Discharge - Discharge Plan Condition: Stable Disposition: HOME Prescriptions: Ibuprofen TAB* [Motrin TAB* 800 MG] 800 mg PO Q6H 10 Days #40 tab Patient Education Materials: Chest Wall Pain (ED) Forms: *Gen. Provider Communication, *Work Release Referrals: No Primary Care Phys,NOPCP [Primary Care Provider] - Additional Instructions: Return to ED with new or worsening symptoms. - Billing Disposition and Condition Condition: STABLE Disposition: Home - Attestation Statements Document Initiated by Scribe: Yes Documenting Scribe: Emmanuel Bradford Provider For Whom Kota is Documenting (Include Credential): Macrina Scott MD Scribe Attestation: Emmanuel Diego, scribed for Macrina Scott MD on 05/01/19 at 0305. Scribe Documentation Reviewed: Yes Provider Attestation: The documentation as recorded by the Emmanuel gonzalez accurately reflects the service I personally performed and the decisions made by me, Macrina Scott MD Status of Scribe Document: Viewed
[2019-04-30 23:52] LABS: ALT 105 U/L (7-52); AST 34 U/L (13-39); Albumin 4.5 g/dL (3.2-5.2); Albumin/Globulin Ratio 1.3 (1-3); Alkaline Phosphatase 46 U/L (34-104); Anion Gap 8 mmol/L (2-11); BUN/Creatinine Ratio 21.3 (8-20); Blood Urea Nitrogen 20 mg/dL (6-24); C Reactive Protein 7.45 mg/L (<8.01); CO2 Carbon Dioxide 25 mmol/L (22-32); Calcium 10.1 mg/dL (8.6-10.3); Chloride 104 mmol/L (101-111); EGFR African American 84.6 (>60); EGFR Non-African American 69.9 (>60); Globulin 3.5 g/dL (2-4); Glucose 111 mg/dL (70-100); Sodium 137 mmol/L (135-145)
[2019-04-30 23:59] LABS: HCG Pregnancy < 0.60 mIU/mL
[2019-05-01] MEDS ORDERED: Ketorolac INJ* 30 MG/ML 1 ML VIAL IM ONE (00:38)
[2019-05-01 02:38] VITALS: BP 136/57
== END 2019-05-01 02:36 | disposition home or self-care (01) ==
LOC: ED 21:34
DX: R07.89 Other chest pain (principal); R10.11 Right upper quadrant pain; F17.210 Nicotine dependence, cigarettes, uncomplicated; R10.9 Unspecified abdominal pain; R05 Cough; J45.909 Unspecified asthma, uncomplicated; Z79.899 Other long term (current) drug therapy
CPT/HCPCS: 36415; 76705; 80053; 83690; 84702; 85025; 86140; 96372; 99282; J1885

== ENCOUNTER 2019-05-12 14:26 | Emergency (ER) | payer SELFPAY ==
[2019-05-12 14:31] VITALS: BP 117/89
--- NOTE | 2019-05-12 15:51 | ED ---
Asthma - HPI Summary HPI Summary: 29 year old F presenting to [facility] complains of worsening non-productive cough x5 -6 days. States that she has had a cough ever since moving to [facility] from [place] recently. States the cough has been worsening since 5-6 days ago because she is sick. Reports green nasal discharge. No fever, chills, nausea, rash. Has been around coworker who has been sick with sinus infection. Hx asthma for which she takes ipratropium. No hx hospitalizations for asthma. States she had an asthma attack for 2 hours last night. The patient rates the pain 0/10 in severity per nurse triage note. Symptoms aggravated by nothing. Symptoms alleviated by ipratropium, last taken 2-3 days ago, and Robutissin, last taken this morning. States she ran out of ipratropium 2-3 days ago. Does not take allergy medications. Has not received influenza vaccination. Is not . Has not established a primary care provider yet. No alcohol, smoking, drugs. 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 Patients medication reviewed this visit. - History of Current Complaint Chief Complaint: EDAsthma Stated Complaint: GENERAL ILLNESS/ASTHMA PER PT Time Seen by Provider: 05/12/19 15:48 Hx Obtained From: Patient Onset/Duration: Lasting Days - 5-6, Still Present Timing: Constant Current Severity: None Pain Intensity: 0 Pain Scale Used: 0-10 Numeric Aggravating Symptoms: Nothing Alleviating Symptoms: Other - ipratropium, last taken 2-3 days ago, and Robutissin, last taken this morning Associated Signs and Symptoms: Positive: Negative - fever, chills, nausea, rash , Other - green nasal discharge - Allergy/Home Medications Allergies/Adverse Reactions: Allergies Allergy/AdvReac Type Severity Reaction Status Date / Time cefaclor [From Ceclor] Allergy Unknown Verified 05/12/19 16:02 Reaction Details levofloxacin [From Levaquin] Allergy Unknown Verified 05/12/19 16:02 Reaction Details PMH/Surg Hx/FS Hx/Imm Hx Endocrine/Hematology History: Denies: Hx Diabetes Cardiovascular History: Denies: Hx Hypertension Respiratory History: Reports: Hx Asthma - Surgical History Surgery Procedure, Year, and Place: 2 HERNIA REPAIR AND TONSILLECTOMY - Immunization History Date of Influenza Vaccine: none Infectious Disease History: No Infectious Disease History: Denies: Traveled Outside the US in Last 30 Days - Family History Known Family History: Positive: Other - cancer - Social History Alcohol Use: None Hx Substance Use: No Substance Use Type: Reports: None Hx Tobacco Use: Yes Smoking Status (MU): Former Smoker Review of Systems Negative: Fever, Chills Positive: Nasal Discharge - green Positive: Cough Negative: Nausea Negative: Rash All Other Systems Reviewed And Are Negative: Yes Physical Exam - Summary Physical Exam Summary: Vital Signs Reviewed: Yes A+Ox3, no distress, coarse cough Eyes: Conjunctiva Clear, SHANTEL. 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 Skin: Positive: no rash, no ecchymosis Triage Information Reviewed: Yes Vital Signs On Initial Exam: Initial Vitals Temp Pulse Resp BP Pulse Ox 97.5 F 114 18 117/89 98 05/12/19 14:28 05/12/19 14:28 05/12/19 14:28 05/12/19 14:28 05/12/19 14:28 Vital Signs Reviewed: Yes Procedures - Sedation Patient Received Moderate/Deep Sedation with Procedure: No Diagnostics - Vital Signs Vital Signs Temp Pulse Resp BP Pulse Ox 05/12/19 14:28 97.5 F 114 18 117/89 98 - Laboratory Lab Statement: Any lab studies that have been ordered have been reviewed, and results considered in the medical decision making process. Re-Evaluation - Re-Evaluation First Eval Re-Evaluation Time: 16:47 Change: Improved - patient feeling better and sounding better after breathing treatments coughing resoloved will give abx, secretion precations encouraged PCP f.u Asthma Course/Dx - Course Course Of Treatment: PT presents requesting refill on her asthma medications as she ran out - does not have a PCP in [place]. Pt states 7 days progressive sinus pressure, coarse cough, fatigue. last albuterol uyesterday. + sick contacts- [employer]uarant business. VSS. Pt with coarse cough, turbinates inflammed and PND. Will give pred, duo neb and reassess. Will give urgent RX and physican referral center - Diagnoses Provider Diagnoses: Acute bronchitis Discharge ED - Sign-Out/Discharge Documenting (check all that apply): Patient Departure - Discharge - Discharge Plan Condition: Stable Disposition: HOME Prescriptions: Albuterol 2.5MG/3ML (0.083%)* [Ventolin 2.5 MG/3 ML NEB.MARISA*] 2.5 mg INH Q4H # 30 neb.marisa Albuterol HFA INHALER* [Ventolin HFA Inhaler*] 2 puff INH Q4H PRN #1 mdi PRN Reason: wheeze Azithromycin TAB* [Zithromax TAB (Z-PRABHU) 250 mg #6 tabs] 2 tab PO .TODAY, THEN 1 DAILY #1 prabhu predniSONE [Prednisone 20 MG TAB] 40 mg PO DAILY #8 tablet Patient Education Materials: Acute Bronchitis (ED) Forms: *Work Release Referrals: [facility] [Outside] Care [facility] [Outside] Additional Instructions: - Take antibiotics and prednisone exactly as prescribed until gone - Use your albuterol puffer or nebulizer- 2 puffs ever 4-6 hours for the next 2 days - then as needed - These infections are spread by oral secretions. Do not share eating or drinking utensils. Frequent hand washing is important. Clean items that may get your secretions on them such as cell phones, ipads, computer mouse, television remotes. Once you have been on antbiotics for 2 days, change your pillowcase and your toothbrush -Stay well hydrated - avoid excess caffeine and all alcohol - eat regular, healthy meals -Contact the physician referral for assistance scheduled with a new primary care provider- this office will assist you with an appointment and help you work with someone regarding health insurance. Call your doctor, return here or go to the emergency department with any questions or concerns - Billing Disposition and Condition Condition: STABLE Disposition: Home - Attestation Statements Document Initiated by Scribe: Yes Documenting Scribe: Tawnya Cutler Provider For Whom Melinaibe is Documenting (Include Credential): Stella Burks MD Scribe Attestation: Tawnya Diego, scribed for Stella Burks MD on 05/13/19 at 2100. Scribe Documentation Reviewed: Yes Provider Attestation: The documentation as recorded by the scribe, Tawnya Cutler accurately reflects the service I personally performed and the decisions made by me, Stella Burks MD Status of Scribe Document: Viewed
[2019-05-12] MEDS: predniSONE TAB* 20 MG PO ONE (16:40)
[2019-05-12] MEDS: Albuterol/Ipratropium NEB.SOL* Albuterol 2.5 MG/Ipratropium 0.5 MG 3 ML INH ONE (16:40)
== END 2019-05-12 16:55 | disposition home or self-care (01) ==
LOC: ED 14:26
DX: J20.9 Acute bronchitis, unspecified (principal); Z87.891 Personal history of nicotine dependence; Z88.1 Allergy status to other antibiotic agents
CPT/HCPCS: 99282; A9270-GY; J7512

== ENCOUNTER 2019-05-19 21:58 | Emergency (ER) | payer SELFPAY ==
--- NOTE | 2019-05-20 00:27 | ED ---
Asthma - HPI Summary HPI Summary: 29 yo female presents with cough. She tells me that she has a long history of asthma and recently moved here from [place] a few months ago. She does not have insurance yet and, thus, does not have her inhalers. She tells me that over the past few weeks she has been noticing increased wheezing and coughing. She was seen here about a week ago and tells me that she improved with a nebulizer treatment and was given a 5 day course of albuterol hfa, prednisone, and nebulizer solutions. She used these with good relief, but finished yesterday and today her asthma has been acting up again. Denies fever, chills, sore throat , sinus symptoms, chest pain, abdominal pain, n/v. She is still smoking daily - History of Current Complaint Chief Complaint: EDAsthma Stated Complaint: ASTHMA FLARE PER PT Time Seen by Provider: 05/20/19 00:27 Hx Obtained From: Patient Onset/Duration: Gradual Onset Current Severity: None Pain Intensity: 0 - Allergy/Home Medications Allergies/Adverse Reactions: Allergies Allergy/AdvReac Type Severity Reaction Status Date / Time cefaclor [From Ceclor] Allergy Unknown Verified 05/19/19 22:02 Reaction Details levofloxacin [From Levaquin] Allergy Unknown Verified 05/19/19 22:02 Reaction Details PMH/Surg Hx/FS Hx/Imm Hx Endocrine/Hematology History: Denies: Hx Diabetes Cardiovascular History: Denies: Hx Hypertension Respiratory History: Reports: Hx Asthma History: Denies: Hx Dialysis Musculoskeletal History: Denies: Hx Gout Sensory History: Denies: Hx Eye Injury, Hx Deafness Opthamlomology History: Denies: Hx Eye Injury Neurological History: Denies: Hx Dementia Psychiatric History: Denies: Hx Autism - Surgical History Surgical History: Yes Surgery Procedure, Year, and Place: 2 HERNIA REPAIR AND TONSILLECTOMY - Immunization History Date of Influenza Vaccine: none Infectious Disease History: No Infectious Disease History: Denies: Traveled Outside the US in Last 30 Days - Family History Known Family History: Positive: Other - cancer - Social History Alcohol Use: None Hx Substance Use: No Substance Use Type: Reports: None Hx Tobacco Use: Yes Smoking Status (MU): Former Smoker Review of Systems Constitutional: Negative Eyes: Negative ENT: Negative Cardiovascular: Negative Positive: Cough Gastrointestinal: Negative Genitourinary: Negative Neurological: Negative Psychological: Normal All Other Systems Reviewed And Are Negative: No Physical Exam - Summary Physical Exam Summary: GENERAL: NAD. WDWN. No pain distress. SKIN: No rashes, sores, lesions, or open wounds. HEENT: Head: AT/NC Eyes: Conjunctiva clear without inflammation or discharge. Ears: Hearing grossly normal. TMs intact, no bulging, erythema, or edema. Nose: Nasal mucosa pink and moist. NTTP maxillary and frontal sinus. Throat: Posterior oropharynx without exudates, erythema, or tonsillar enlargement. Uvula midline. NECK: Supple. Nontender. No lymphadenopathy. CHEST: Mild wheezing throughout. No r/r. No accessory muscle use. Breathing comfortably and in no distress. CV: RRR. Pulses intact. Cap refill <2seconds NEURO: Alert. PSYCH: Age appropriate behavior. Triage Information Reviewed: Yes Vital Signs On Initial Exam: Initial Vitals Temp Pulse Resp BP Pulse Ox 97.0 F 118 18 160/92 97 05/19/19 22:02 05/19/19 22:02 05/19/19 22:02 05/19/19 22:02 05/19/19 22:02 Vital Signs Reviewed: Yes Procedures - Sedation Patient Received Moderate/Deep Sedation with Procedure: No Diagnostics - Vital Signs Vital Signs Temp Pulse Resp BP Pulse Ox 05/20/19 00:03 98.3 F 115 20 108/76 05/19/19 22:02 97.0 F 118 18 160/92 97 - Laboratory Lab Statement: Any lab studies that have been ordered have been reviewed, and results considered in the medical decision making process. - Radiology CXR Radiology Interpretation Completed By: ED Physician Summary of Radiographic Findings: No PNA. Asthma Course/Dx - Course Course Of Treatment: In the ED course pt was given a duoneb treatment and dexamethasone with good relief. Lung sounds improved and pt felt easier to take a deep breath. Will dc with asthma exacerbation, full prescription for albuterol inhaler and nebulizer solutions and 5 days of prednisone. - Diagnoses Provider Diagnoses: Asthma exacerbation Discharge ED - Sign-Out/Discharge Documenting (check all that apply): Patient Departure - Discharge Plan Condition: Stable Disposition: HOME Prescriptions: Albuterol 2.5MG/3ML (0.083%)* [Ventolin 2.5 MG/3 ML NEB.MARISA*] 2.5 mg INH Q4H PRN #30 neb.marisa PRN Reason: Wheezing Albuterol HFA INHALER* [Ventolin HFA Inhaler*] 1 - 2 puff INH Q6H PRN #1 mdi PRN Reason: Wheezing predniSONE TAB* [Deltasone 20 MG TAB*] 40 mg PO DAILY #10 tab Patient Education Materials: Asthma (ED) Referrals: No Primary Care Phys,NOPCP [Primary Care Provider] - Additional Instructions: If you develop a fever, shortness of breath, chest pain, new or worsening symptoms - please call your PCP or go to the ED immediately. Your blood pressure was high at todays visit. Please see your primary provider within 4 weeks for recheck and re-evaluation. - Billing Disposition and Condition Condition: STABLE Disposition: Home - Attestation Statements Provider Attestation: the patient was seen by the midlevel provider, it was determined by them that it was not necessary for me to see the patient, I was available for consult during the patient's visit in the ED. I did not establish and patient-physician relationship. The chart however has been reviewed and I am signing in an administrative capacity.
[2019-05-20] MEDS ORDERED: Albuterol HFA INHALER* 8 gm MDI INH ONE (00:46)
[2019-05-20] MEDS ORDERED: Dexamethasone TAB* 4 MG PO ONE (00:46)
[2019-05-20] MEDS ORDERED: Albuterol/Ipratropium NEB.SOL* Albuterol 2.5 MG/Ipratropium 0.5 MG 3 ML INH ONE (00:46)
[2019-05-20 01:48] VITALS: BP 109/73
== END 2019-05-20 01:49 | disposition home or self-care (01) ==
LOC: ED 21:58
DX: J45.901 Unspecified asthma with (acute) exacerbation (principal); Z87.891 Personal history of nicotine dependence; Z88.1 Allergy status to other antibiotic agents
CPT/HCPCS: 71046; 99282; A9270-GY; J8540

== ENCOUNTER 2019-06-17 15:26 | Emergency (ER) | payer SELFPAY ==
[2019-06-17] MEDS ORDERED: Albuterol 2.5 MG/3 ML NEB.SOL* (0.083%) INH ONE (16:02)
--- NOTE | 2019-06-17 16:26 | ED ---
Respiratory - HPI Summary HPI Summary: Patient is a 29-year-old female who presents emergency department for nasal congestion, dry cough and increased shortness of breath since yesterday. Patient notch is a history of asthma and has been feeling more short of breath with cold. Patient states she ran out of her inhaler yesterday and presents here requesting breathing treatment and inhaler. Patient denies fever, abdominal pain, vomiting or diarrhea. Symptoms are mild in severity. No current modifying factors. - History of Current Complaint Chief Complaint: EDShortnessOfBreath Stated Complaint: GENERAL ILLNESS PER PT Time Seen by Provider: 06/17/19 15:41 Hx Obtained From: Patient Pain Intensity: 98 - Allergy/Home Medications Allergies/Adverse Reactions: Allergies Allergy/AdvReac Type Severity Reaction Status Date / Time cefaclor [From Ceclor] Allergy Unknown Verified 05/19/19 22:02 Reaction Details levofloxacin [From Levaquin] Allergy Unknown Verified 05/19/19 22:02 Reaction Details PMH/Surg Hx/FS Hx/Imm Hx Previously Healthy: Yes Endocrine/Hematology History: Denies: Hx Diabetes Cardiovascular History: Denies: Hx Hypertension Respiratory History: Reports: Hx Asthma History: Denies: Hx Dialysis Musculoskeletal History: Denies: Hx Gout Sensory History: Denies: Hx Eye Injury, Hx Deafness Opthamlomology History: Denies: Hx Eye Injury Neurological History: Denies: Hx Dementia Psychiatric History: Denies: Hx Autism - Surgical History Surgery Procedure, Year, and Place: 2 HERNIA REPAIR AND TONSILLECTOMY - Immunization History Date of Influenza Vaccine: none Infectious Disease History: No Infectious Disease History: Denies: Traveled Outside the [place] in Last 30 Days - Family History Known Family History: Positive: Other - cancer - Social History Occupation: Employed Part-time Lives: Dormitory/Roommates Alcohol Use: Occasionally Hx Substance Use: No Substance Use Type: Reports: None Hx Tobacco Use: Yes Smoking Status (MU): Light Every Day Tobacco Smoker Review of Systems Constitutional: Negative Negative: Fever, Chills Eyes: Negative ENT: Other - sinus congestion Cardiovascular: Negative Positive: Shortness Of Breath, Cough Gastrointestinal: Negative Negative: Abdominal Pain, Vomiting, Diarrhea Genitourinary: Negative Negative: dysuria Skin: Negative Neurological: Negative All Other Systems Reviewed And Are Negative: Yes Physical Exam Triage Information Reviewed: Yes Vital Signs On Initial Exam: Initial Vitals Temp Pulse Resp BP Pulse Ox 97.2 F 117 18 141/88 98 06/17/19 15:28 06/17/19 15:28 06/17/19 15:28 06/17/19 15:28 06/17/19 15:28 Vital Signs Reviewed: Yes Appearance: Positive: Well-Appearing - Pt. sitting up in bed in NAD. Dry cough noted. Skin: Positive: Warm, Dry Head/Face: Positive: Normal Head/Face Inspection Eyes: Positive: Normal, EOMI, SHANTEL, Conjunctiva Clear ENT: Positive: Pharynx normal, TMs normal, Other - nasal congestion noted.. Negative: Tonsillar swelling, Tonsillar exudate Neck: Positive: Supple, Nontender. Negative: Nuchal Rigidity Respiratory/Lung Sounds: Positive: Clear to Auscultation, Breath Sounds Present Cardiovascular: Positive: Normal, RRR Neurological: Positive: Normal, CN Intact II-III Psychiatric: Positive: Affect/Mood Appropriate Procedures - Sedation Patient Received Moderate/Deep Sedation with Procedure: No Diagnostics - Vital Signs Vital Signs Temp Pulse Resp BP Pulse Ox 06/17/19 15:28 97.2 F 117 18 141/88 98 - Laboratory Lab Statement: Any lab studies that have been ordered have been reviewed, and results considered in the medical decision making process. Disposition - Course Course Of Treatment: Pt. sinus/nasal congestion and worsening dry cough and SOB x 2 days. Afebrile and well appearing. Mildly tachycardic. Suspect viral etiology at this point. Pt requesting breathing treatment as she feels tight. Albuterol neb given. Ventolin HFA given. Strongly advised pt. she needs to establish a PCP. To call [facility] clinic tomorrow. Will return to er if sxs change or worsen. - Differential Dx - Cardiopulmonary Differential Diagnoses - Cardiopulmonary: Asthma, Influenza, Lower Resp Infection, Sinusitis - Diagnoses Provider Diagnoses: Upper respiratory infection, Asthma Discharge ED - Sign-Out/Discharge Documenting (check all that apply): Patient Departure - Discharge Plan Condition: Improved Disposition: HOME Prescriptions: Albuterol HFA INHALER* [Ventolin HFA Inhaler*] 1 - 2 puff INH Q6H PRN #1 mdi PRN Reason: Wheezing Patient Education Materials: Upper Respiratory Infection (ED) Referrals: [facility] [Outside] [facility] [Outside] Additional Instructions: Call the [facility] Friday to schedule a follow up appointment Increase fluids and rest Tylenol or Motrin for discomfort as directed Return to ER if symptoms change or worsen - Billing Disposition and Condition Condition: IMPROVED Disposition: Home
[2019-06-17] MEDS ORDERED: Albuterol HFA INHALER* 8 gm MDI INH ONE (16:39)
[2019-06-17 17:05] VITALS: BP 110/75
== END 2019-06-17 16:56 | disposition home or self-care (01) ==
LOC: ED 15:26
DX: J06.9 Acute upper respiratory infection, unspecified (principal); J45.909 Unspecified asthma, uncomplicated; F17.200 Nicotine dependence, unspecified, uncomplicated; Z88.1 Allergy status to other antibiotic agents
CPT/HCPCS: 99282; A9270-GY

== ENCOUNTER 2019-06-20 14:47 | Emergency (ER) | payer SELFPAY ==
[2019-06-20 14:51] VITALS: BP 123/100
[2019-06-20] MEDS ORDERED: Lidocaine/Epineph/Tetraca SOL 4 ML BTL (LET solution) TOPICAL ONE (15:22)
--- NOTE | 2019-06-20 15:22 | ED ---
Skin Complaint - HPI Summary HPI Summary: Patient is a 29 y/o F presenting to the ED for a chief complaint of a cyst on the back above the tailbone with pain over the area. She reports 5 recurrences of the cyst in the same area in the past that required drainage. The last occurrence before this current cyst was in December 2018. Patient reports the pain over the cyst that worsens with movement. Patient also reports cold symptoms and a fever one week ago that she associates with the cold. Patient denies any chills, erythema of eyes, sore throat, CP, SOB, cough, abdominal pain, N/V, dysuria, hematuria, myalgia, edema, rash, or dizziness. She has taken ibuprofen 4-200 mg without relief. She reports nausea with taking ibuprofen 200 mg. Patient denies seeing a surgeon for the cyst due to not having health insurance. - History of Current Complaint Chief Complaint: EDGeneral Time Seen by Provider: 06/20/19 15:13 Stated Complaint: CYST ON TAILBONE PER PT Hx Obtained From: Patient Onset/Duration: Started Weeks Ago, Atraumatic, Still Present Skin Exposure Onset/Duration: Weeks Ago Timing: Constant Onset Severity: Moderate Current Severity: Moderate Pain Intensity: 6 Pain Scale Used: 0-10 Numeric Skin Location: Other: - Lower back over the tailbone Aggravating Symptom(s): Other: - Movement Alleviating Symptom(s): Nothing Associated Signs & Symptoms: Fever - In vitals, 97.2 F - Allergy/Home Medications Allergies/Adverse Reactions: Allergies Allergy/AdvReac Type Severity Reaction Status Date / Time cefaclor [From Ceclor] Allergy Unknown Verified 05/19/19 22:02 Reaction Details levofloxacin [From Levaquin] Allergy Unknown Verified 05/19/19 22:02 Reaction Details PMH/Surg Hx/FS Hx/Imm Hx Previously Healthy: Yes Endocrine/Hematology History: Denies: Hx Diabetes Cardiovascular History: Denies: Hx Hypercholesterolemia, Hx Hypertension Respiratory History: Reports: Hx Asthma History: Denies: Hx Dialysis Musculoskeletal History: Denies: Hx Gout Sensory History: Denies: Hx Eye Injury, Hx Legally Blind, Hx Deafness Opthamlomology History: Denies: Hx Eye Injury, Hx Legally Blind EENT History: Denies: Hx Deafness Neurological History: Denies: Hx Dementia Psychiatric History: Denies: Hx Autism - Surgical History Surgical History: Yes Surgery Procedure, Year, and Place: 2 HERNIA REPAIR AND TONSILLECTOMY - Immunization History Date of Influenza Vaccine: none Infectious Disease History: No Infectious Disease History: Denies: Traveled Outside the [place] in Last 30 Days - Family History Known Family History: Positive: Other - cancer - Social History Occupation: Employed Part-time Lives: Alone Alcohol Use: Occasionally Hx Substance Use: No Substance Use Type: Reports: None Hx Tobacco Use: Yes Smoking Status (MU): Light Every Day Tobacco Smoker Review of Systems Positive: Fever - In vitals, 97.2 F. Negative: Chills Negative: Erythema Negative: Sore Throat Negative: Chest Pain Negative: Shortness Of Breath, Cough Negative: Abdominal Pain, Vomiting, Nausea Negative: dysuria, hematuria Negative: Myalgia, Edema Positive: Other - Positive cyst on the lower back above the tailbone with pain in the area Neurological: Other - Negative dizziness All Other Systems Reviewed And Are Negative: Yes Physical Exam - Summary Physical Exam Summary: Constitutional: Well-developed, Well-nourished, Alert.(-) Distressed Skin: Warm, Dry HENT: Normocephalic; Atraumatic Eyes: Conjunctiva normal Neck: Musculoskeletal ROM normal neck. (-) JVD, (-) Stridor, (-) Tracheal deviation Cardio: Rhythm regular, rate normal, Heart sounds normal; Intact distal pulses; The pedal pulses are 2+ and symmetric. Radial pulses are 2+ and symmetric. (-) Murmur Pulmonary/Chest wall: Effort normal. (-) Respiratory distress, (-) Wheezes, (-) Rales Abd: Soft, (-) tenderness, (-) Distension, (-) Guarding, (-) Rebound Musculoskeletal: (-) Edema. Cyst over coccyx. Lymph: (-) Cervical adenopathy Neuro: Alert, Oriented x3 Psych: Mood and affect Normal Triage Information Reviewed: Yes Vital Signs On Initial Exam: Initial Vitals Temp Pulse Resp BP Pulse Ox 97.2 F 107 16 123/100 97 06/20/19 14:48 06/20/19 14:48 06/20/19 14:48 06/20/19 14:48 06/20/19 14:48 Vital Signs Reviewed: Yes Procedures - Sedation Patient Received Moderate/Deep Sedation with Procedure: No - Incision and Drainage Coccyx Site: Coccyx Anesthesia: Topical, Lidocaine Instrument(s): Scalpel - 11 blade Packing: Drain - Minimal serous drainage Diagnostics - Vital Signs Vital Signs Temp Pulse Resp BP Pulse Ox 06/20/19 14:48 97.2 F 107 16 123/100 97 - Laboratory Lab Statement: Any lab studies that have been ordered have been reviewed, and results considered in the medical decision making process. Re-Evaluation - Re-Evaluation First Eval Re-Evaluation Time: 16:20 Change: Unchanged Comment: At 16:20, patient had no effect from Let solution. She declined lidocaine injection. Will give additional lidocaine topically. Course/Dx - Course Course Of Treatment: Patient is a 29 y/o F presenting to the ED for a chief complaint of a cyst on the back above the tailbone with pain over the area. She reports 5 recurrences of the cyst in the same area in the past that required drainage. The last occurrence before this current cyst was in December 2018. Patient reports the pain over the cyst that worsens with movement. Patient also reports cold symptoms and a fever one week ago that she associates with the cold. Patient denies any chills, erythema of eyes, sore throat, CP, SOB, cough, abdominal pain, N/V, dysuria, hematuria, myalgia, edema, rash, or dizziness. She has taken ibuprofen 4-200 mg without relief. She reports nausea with taking ibuprofen 200 mg. Patient denies seeing a surgeon for the cyst due to not having health insurance. On exam, cyst over coccyx. In the ED course, patient was given lidocaine 10 ml TOPICAL. At 16:20, patient had no effect from Let solution. She declined lidocaine injection. Will give additional lidocaine topically. nurse Rivka, is present for the procedure. Topical lidocaine was used with an 11 blade scalpel with minimal serous drainage. I recommended surgical management which is optimal. Patient is uninsured and does not have immediate access to care so I will be draining the area in the ED. Patient will be discharged with a diagnosis of cyst near coccyx. Follow up with [facility] and surgery within one week. - Diagnoses Provider Diagnoses: Cyst near coccyx Discharge ED - Sign-Out/Discharge Documenting (check all that apply): Patient Departure - Discharge - Discharge Plan Condition: Stable Disposition: HOME Prescriptions: Ibuprofen TAB* [Motrin TAB* 800 MG] 800 mg PO Q6H PRN #56 tab PRN Reason: Pain - Severe Patient Education Materials: Cyst (ED) Referrals: [facility] [Outside] Alejandra Gan MD [Medical Doctor] - Additional Instructions: Follow up with surgery and [facility] within one week. RETURN TO THE EMERGENCY DEPARTMENT FOR CHANGING OR WORSENING SYMPTOMS. Expect some blood or clear drainage and change the dressings daily. Return for fever, redness, or increasing pain. - Attestation Statements Document Initiated by Scribe: Yes Documenting Scribe: Yudy Smith Provider For Whom Scribe is Documenting (Include Credential): Jose Cummins MD Scribe Attestation: Yudy Diego, scribed for Jose Cummins MD on 06/20/19 at 1742. Status of Scribe Document: Ready
[2019-06-20] MEDS ORDERED: Lidocaine 2.5%/Prilocain 2.5%* 5 GM TUBE TOPICAL ONE (16:20)
== END 2019-06-20 17:19 | disposition home or self-care (01) ==
LOC: ED 14:47
DX: L72.9 Follicular cyst of the skin and subcutaneous tissue, unspecified (principal); J45.909 Unspecified asthma, uncomplicated; F17.200 Nicotine dependence, unspecified, uncomplicated; Z88.1 Allergy status to other antibiotic agents
CPT/HCPCS: 10060; 99282; A9270-GY

== ENCOUNTER 2019-07-01 17:05 | Emergency (ER) | payer SELFPAY ==
[2019-07-01] MEDS ORDERED: Albuterol/Ipratropium NEB.SOL* Albuterol 2.5 MG/Ipratropium 0.5 MG 3 ML INH ONE (18:21)
[2019-07-01] MEDS ORDERED: Dexamethasone TAB* 4 MG PO ONE (18:22)
--- NOTE | 2019-07-01 18:25 | ED ---
Asthma - HPI Summary HPI Summary: 29 year-old female presents with asthma attack today. She ran out of her inhaler. She does not currently have a primary. States she has a dry cough for the past couple months with no change in the cough. She is no longer a smoker. She denies any fevers. No sinus congestion. No chest pain. She has no other medical conditions. no abdominal pain. no nausea or vomiting. she has been wheezing. - History of Current Complaint Chief Complaint: EDAsthma Stated Complaint: ASTHMA ISSUES PER PT Time Seen by Provider: 07/01/19 18:18 Pain Intensity: 0 - Allergy/Home Medications Allergies/Adverse Reactions: Allergies Allergy/AdvReac Type Severity Reaction Status Date / Time cefaclor [From Ceclor] Allergy Unknown Verified 07/01/19 17:57 Reaction Details levofloxacin [From Levaquin] Allergy Unknown Verified 07/01/19 17:57 Reaction Details PMH/Surg Hx/FS Hx/Imm Hx Endocrine/Hematology History: Denies: Hx Diabetes Cardiovascular History: Denies: Hx Hypercholesterolemia, Hx Hypertension Respiratory History: Reports: Hx Asthma History: Denies: Hx Dialysis Musculoskeletal History: Denies: Hx Gout Sensory History: Denies: Hx Eye Injury, Hx Legally Blind, Hx Deafness Opthamlomology History: Denies: Hx Eye Injury, Hx Legally Blind Neurological History: Denies: Hx Dementia Psychiatric History: Denies: Hx Autism - Surgical History Surgery Procedure, Year, and Place: 2 HERNIA REPAIR AND TONSILLECTOMY - Immunization History Date of Influenza Vaccine: none Infectious Disease History: No Infectious Disease History: Denies: Traveled Outside the [place] in Last 30 Days - Family History Known Family History: Positive: Other - cancer - Social History Alcohol Use: Occasionally Hx Substance Use: No Substance Use Type: Reports: None Hx Tobacco Use: Yes Smoking Status (MU): Former Smoker Review of Systems Negative: Fever Negative: Chest Pain Positive: Shortness Of Breath, Cough Negative: Abdominal Pain All Other Systems Reviewed And Are Negative: Yes Physical Exam Triage Information Reviewed: Yes Vital Signs On Initial Exam: Initial Vitals Temp Pulse Resp BP Pulse Ox 98.8 F 111 20 135/92 95 07/01/19 17:52 07/01/19 17:52 07/01/19 17:52 07/01/19 17:52 07/01/19 17:52 Vital Signs Reviewed: Yes Appearance: Positive: Well-Appearing Skin: Positive: Warm, Dry Head/Face: Positive: Normal Head/Face Inspection Eyes: Positive: Normal, EOMI, SHANTEL, Conjunctiva Clear ENT: Positive: Normal ENT inspection, Pharynx normal, TMs normal Respiratory/Lung Sounds: Positive: Breath Sounds Present, Wheezes Cardiovascular: Positive: Normal, RRR Abdomen Description: Positive: Nontender, Soft Bowel Sounds: Positive: Present Musculoskeletal: Positive: Normal Neurological: Positive: Normal Psychiatric: Positive: Normal Procedures - Sedation Patient Received Moderate/Deep Sedation with Procedure: No Diagnostics - Vital Signs Vital Signs Temp Pulse Resp BP Pulse Ox 07/01/19 17:52 98.8 F 111 20 135/92 95 - Laboratory Lab Statement: Any lab studies that have been ordered have been reviewed, and results considered in the medical decision making process. Re-Evaluation - Re-Evaluation First Eval Re-Evaluation Time: 18:46 Change: Improved Comment: lungs CTA Asthma Course/Dx - Course Course Of Treatment: 29 year-old female presents with asthma attack today. She ran out of her inhaler. She does not currently have a primary. States she has a dry cough for the past couple months with no change in the cough. She is no longer a smoker. She denies any fevers. No sinus congestion. No chest pain. She has no other medical conditions. no abdominal pain. no nausea or vomiting. she has been wheezing. On exam has wheezes noted. Gave breathing treatment Decadron and feeling better. will discharge with inhaler. told follow up with [facility]. patient understand and agrees with plan. - Diagnoses Differential Diagnosis/HQI/PQRI: Positive: Acute Asthma, Bronchitis, Pneumonia Provider Diagnoses: Asthma Discharge ED - Sign-Out/Discharge Documenting (check all that apply): Patient Departure - Discharge Plan Condition: Good Disposition: HOME Prescriptions: Albuterol 2.5MG/3ML (0.083%)* [Ventolin 2.5 MG/3 ML NEB.MARISA*] 2.5 mg INH Q4H # 30 [email or web address] Albuterol HFA INHALER* [Ventolin HFA Inhaler*] 1 - 2 puff INH Q6H PRN #1 mdi PRN Reason: Shortness Of Breath Patient Education Materials: Asthma (ED) Referrals: [facility] [Outside] Additional Instructions: Use nebulizer every 6 hours for wheezing establish care with primary, referral given for [facility] Return to ED if develop any new or worsening symptoms - Billing Disposition and Condition Condition: GOOD Disposition: Home
[2019-07-01] MEDS ORDERED: A lbuterol Hfa (PREPAK) 1 MDI - ED TAKE HOME DISPENSING ONLY INHH ONE (18:47)
[2019-07-01 19:23] VITALS: BP 130/64
== END 2019-07-01 19:21 | disposition home or self-care (01) ==
LOC: ED 17:05
DX: J45.909 Unspecified asthma, uncomplicated (principal); Z87.891 Personal history of nicotine dependence; Z88.1 Allergy status to other antibiotic agents
CPT/HCPCS: 99282; A9270-GY; J8540

== ENCOUNTER 2019-07-19 14:23 | Emergency (ER) | payer SELFPAY ==
[2019-07-19] MEDS ORDERED: Albuterol HFA INHALER* 8 gm MDI INH ONE (14:38)
--- NOTE | 2019-07-19 14:38 | ED ---
Asthma - HPI Summary HPI Summary: Patient is a 29 y/o F presenting to the ED for a chief complaint of asthma exacerbation. Patient states that she was previously seen at [facility] for similar symptoms and prescribed ProAir. At that time, she had a chest x-ray that was unremarkable. She has since had another episode of asthma exacerbation and used the ProAir inhaler, which she now states has worsened her asthma. Patient notes shortness of breath, wheezing, nonproductive cough, and chest tightness. Patient denies fever. She also reports back pain after coughing a few days ago. Patient notes relief with Ventolin and Prednisone. PMHx is significant for asthma. PSHx is significant for tonsillectomy and hernia repair. Patient smokes 1 cigarette every other day. Medications reviewed. Allergies noted. - History of Current Complaint Chief Complaint: EDAsthma Stated Complaint: ASTHMA ISSUES PER PT Time Seen by Provider: 07/19/19 14:30 Hx Obtained From: Patient Onset/Duration: Sudden Onset, Still Present Timing: Constant Initial Severity: Moderate Current Severity: Moderate Pain Intensity: 4 Pain Scale Used: 0-10 Numeric Location/Character: Cough (Nonproductive) Aggravating Symptoms: Other: - Inhaler, Proair Associated Signs and Symptoms: Positive: Shortness of Breath - Allergy/Home Medications Allergies/Adverse Reactions: Allergies Allergy/AdvReac Type Severity Reaction Status Date / Time cefaclor [From Ceclor] Allergy Unknown Verified 07/01/19 17:57 Reaction Details levofloxacin [From Levaquin] Allergy Unknown Verified 07/01/19 17:57 Reaction Details PMH/Surg Hx/FS Hx/Imm Hx Previously Healthy: Yes Endocrine/Hematology History: Denies: Hx Diabetes Cardiovascular History: Denies: Hx Hypercholesterolemia, Hx Hypertension Respiratory History: Reports: Hx Asthma History: Denies: Hx Dialysis Musculoskeletal History: Denies: Hx Gout Sensory History: Denies: Hx Eye Injury, Hx Legally Blind, Hx Deafness Opthamlomology History: Denies: Hx Eye Injury, Hx Legally Blind EENT History: Denies: Hx Deafness Neurological History: Denies: Hx Dementia Psychiatric History: Denies: Hx Autism - Surgical History Surgical History: Yes Surgery Procedure, Year, and Place: 2 HERNIA REPAIR AND TONSILLECTOMY - Immunization History Date of Influenza Vaccine: none Infectious Disease History: No Infectious Disease History: Denies: Traveled Outside the [place] in Last 30 Days - Family History Known Family History: Positive: Other - cancer - Social History Occupation: Employed Full-time Alcohol Use: Occasionally Hx Substance Use: No Substance Use Type: Reports: None Hx Tobacco Use: Yes Smoking Status (MU): Current Some Day Smoker Review of Systems Negative: Fever Positive: Chest Pain - Tightness Positive: Shortness Of Breath, Cough - Nonproductive, Other - Positive wheezing Positive: Myalgia - Back All Other Systems Reviewed And Are Negative: Yes Physical Exam - Summary Physical Exam Summary: Constitutional: Well-developed, Well-nourished, Alert. (-) Distressed Skin: Warm, Dry HENT: Normocephalic; Atraumatic Eyes: Conjunctiva normal Neck: Musculoskeletal ROM normal neck. (-) JVD, (-) Stridor, (-) Tracheal deviation Cardio: Rhythm regular, rate normal, Heart sounds normal; Intact distal pulses; Radial pulses are 2+ and symmetric. (-) Murmur Pulmonary/Chest wall: Effort normal. (-) Respiratory distress, (-) Rales. Mild bilateral wheezing. Abd: Soft, (-) tenderness, (-) Distension, (-) Guarding, (-) Rebound Musculoskeletal: (-) Edema Lymph: (-) Cervical adenopathy Neuro: Alert, Oriented x3 Psych: Mood and affect Normal Triage Information Reviewed: Yes Vital Signs On Initial Exam: Initial Vitals Temp Pulse Resp BP Pulse Ox 97.9 F 109 20 118/86 99 07/19/19 14:23 07/19/19 14:23 07/19/19 14:23 07/19/19 14:23 07/19/19 14:23 Vital Signs Reviewed: Yes Procedures - Sedation Patient Received Moderate/Deep Sedation with Procedure: No Diagnostics - Vital Signs Vital Signs Temp Pulse Resp BP Pulse Ox 07/19/19 14:23 97.9 F 109 20 118/86 99 - Laboratory Lab Statement: Any lab studies that have been ordered have been reviewed, and results considered in the medical decision making process. Asthma Course/Dx - Course Course Of Treatment: Patient is here with an asthma exacerbation. Patient was seen here roughly 3 weeks ago similar symptoms. Patient was prescribed pro-air which she states does not work for her and needs Ventolin. Patient was prescribed Ventolin here and given 1 to go home with. Patient will not receive steroids again as she recently had a dose of steroids. Patient's overall well appearing and does not need any further workup or treatment. - Diagnoses Provider Diagnoses: Asthma exacerbation Discharge ED - Sign-Out/Discharge Documenting (check all that apply): Patient Departure - Discharge - Discharge Plan Condition: Stable Disposition: HOME Prescriptions: Albuterol HFA INHALER* [Ventolin HFA Inhaler*] 2 puff INH Q6H PRN #1 mdi PRN Reason: Wheezing Patient Education Materials: Asthma (ED) Referrals: [facility] [Outside] Additional Instructions: PLEASE RETURN TO EMERGENCY DEPARTMENT FOR ANY WORSENING SHORTNESS OF BREATH, OR NEW OR WORSENING SYMPTOMS. Please follow up with your primary care physician. Please make all follow-ups in 1-3 days unless I advise you otherwise. Do not use your Proair, use your Ventolin instead. Continue your path to quit smoking. - Billing Disposition and Condition Condition: STABLE Disposition: Home - Attestation Statements Document Initiated by Kota: Yes Documenting Scribe: Yudy Smith Provider For Whom Kota is Documenting (Include Credential): Jian Calix MD Scribe Attestation: Yudy Diego, scribed for Jian Calix MD on 07/19/19 at 1738. Scribe Documentation Reviewed: Yes Provider Attestation: The documentation as recorded by the Yudy gonzalez accurately reflects the service I personally performed and the decisions made by me, Jian Calix MD Status of Scribe Document: Viewed
[2019-07-19 15:15] VITALS: BP 123/79
== END 2019-07-19 15:15 | disposition home or self-care (01) ==
LOC: ED 14:23
DX: J45.901 Unspecified asthma with (acute) exacerbation (principal); F17.200 Nicotine dependence, unspecified, uncomplicated; Z88.1 Allergy status to other antibiotic agents
CPT/HCPCS: 99282; A9270-GY

== ENCOUNTER 2019-07-26 11:48 | Emergency (ER) | payer SELFPAY ==
--- NOTE | 2019-07-26 11:55 | ED ---
Influenza-Like Illness - HPI Summary HPI Summary: 29-year-old female with significant past medical history of asthma presents to emergency department today complaining of shortness breath, stuffy nose, body aches, cough, fevers for the last 3 days. Patient was recently seen here in the emergency department for an asthma exacerbation and given a metered-dose inhaler which she states she has run out of. Patient denies nausea, vomiting, diarrhea, rash, and urination and states she is up-to-date with her immunizations including a flu shot. Family history and social history noncontributory. - History of Current Complaint Chief Complaint: EDFluSymptoms Time Seen by Provider: 07/26/19 11:54 Hx Obtained From: Patient Onset/Duration: Gradual Onset Severity: Moderate Associated Signs & Symptoms: Fever, Myalgia, Cough, Nasal Congestion, Headache - Allergy/Home Medications Allergies/Adverse Reactions: Allergies Allergy/AdvReac Type Severity Reaction Status Date / Time cefaclor [From Ceclor] Allergy Unknown Verified 07/26/19 11:52 Reaction Details levofloxacin [From Levaquin] Allergy Unknown Verified 07/26/19 11:52 Reaction Details PMH/Surg Hx/FS Hx/Imm Hx Endocrine/Hematology History: Denies: Hx Diabetes Cardiovascular History: Denies: Hx Hypercholesterolemia, Hx Hypertension Respiratory History: Reports: Hx Asthma History: Denies: Hx Dialysis Musculoskeletal History: Denies: Hx Gout Sensory History: Denies: Hx Eye Injury, Hx Legally Blind, Hx Deafness Opthamlomology History: Denies: Hx Eye Injury, Hx Legally Blind Neurological History: Denies: Hx Dementia Psychiatric History: Denies: Hx Autism - Surgical History Surgery Procedure, Year, and Place: 2 HERNIA REPAIR AND TONSILLECTOMY - Immunization History Date of Influenza Vaccine: none Infectious Disease History: No Infectious Disease History: Denies: Traveled Outside the [place] in Last 30 Days - Family History Known Family History: Positive: Other - cancer - Social History Alcohol Use: Occasionally Hx Substance Use: No Substance Use Type: Reports: None Hx Tobacco Use: Yes Smoking Status (MU): Current Some Day Smoker Review of Systems Positive: Fever Eyes: Negative ENT: Negative Cardiovascular: Negative Positive: Shortness Of Breath, Cough Gastrointestinal: Negative Genitourinary: Negative Positive: Myalgia Skin: Negative Neurological: Negative Psychological: Normal All Other Systems Reviewed And Are Negative: Yes Physical Exam Triage Information Reviewed: Yes Vital Signs On Initial Exam: Initial Vitals Temp Pulse Resp BP Pulse Ox 97.7 F 116 20 151/100 97 07/26/19 11:49 07/26/19 11:49 07/26/19 11:49 07/26/19 11:49 07/26/19 11:49 Vital Signs Reviewed: Yes Appearance: Positive: Well-Appearing, No Pain Distress, Well-Nourished Skin: Positive: Warm, Skin Color Reflects Adequate Perfusion Eyes: Positive: EOMI, SHANTEL ENT: Positive: Hearing grossly normal Respiratory/Lung Sounds: Positive: Breath Sounds Present, Wheezes Cardiovascular: Positive: RRR, S1, S2 Abdomen Description: Positive: Nontender, Soft Bowel Sounds: Positive: Present Musculoskeletal: Positive: Strength/ROM Intact Neurological: Positive: Sensory/Motor Intact, Alert, Oriented to Person Place, Time, Normal Gait, Speech Normal Psychiatric: Positive: Normal AVPU Assessment: Alert Procedures - Sedation Patient Received Moderate/Deep Sedation with Procedure: No Diagnostics - Vital Signs Vital Signs Temp Pulse Resp BP Pulse Ox 07/26/19 11:49 97.7 F 116 20 151/100 97 - Laboratory Lab Statement: Any lab studies that have been ordered have been reviewed, and results considered in the medical decision making process. Flu Symptom Course/Dx - Course Course Of Treatment: Patient was evaluated in the emergency department today for an [place]-like illness. Patient seen and examined her vitals are stable and she was afebrile. Wheezes were noted with auscultation of her lungs at the precordium and the patient was given albuterol nebulizer. Nebulizer treatment improved the patient's breathing significantly. Influenza swab was done which was negative. Patient was diagnosed with upper respiritory infection likely caused by virus and given expected management. Patient is to follow-up with her primary care provider for further evaluation and management as needed. - Diagnoses Differential Diagnosis/HQI/PQRI: Positive: Bronchitis, Influenza, Upper Respiratory Infection Provider Diagnoses: Upper respiratory infection Discharge ED - Sign-Out/Discharge Documenting (check all that apply): Patient Departure - Discharge Plan Condition: Stable Disposition: HOME Prescriptions: Albuterol HFA INHALER* [Ventolin HFA Inhaler*] 2 puff INH Q4H PRN #1 mdi PRN Reason: Shortness Of Breath Patient Education Materials: Upper Respiratory Infection (ED) Forms: *Work Release Referrals: [facility] [Outside] - 5 Days No Primary Care Phys,NOPCP [Primary Care Provider] - Additional Instructions: You were seen in the emergency department today and diagnosed with an upper respiratory infection. Viruses are self-limiting and will go away on their own. Be sure to stay hydrated and rest. You may take [id number] decongestants as needed for your symptoms as well as NyQuil at night to improve sleep. Take Tylenol 650mg every 6 hours as needed for fever. Please see your primary care physician in 5 days for further evaluation and management. Please return to the emergency department immediately if you develop any new or worsening symptoms. - Billing Disposition and Condition Condition: STABLE Disposition: Home - Attestation Statements Provider Attestation: I was available for consult. This patient was seen by the NASIR. The patient was not presented to, seen by, or examined by me. Jian Calix MD
[2019-07-26] MEDS ORDERED: Albuterol 0.5% CONC NEB.SOL* 5 MG/ML 20 ml BOT INH ONE (12:23)
[2019-07-26] MEDS ORDERED: Albuterol 2.5 MG/3 ML NEB.SOL* (0.083%) INH ONE (12:47)
[2019-07-26 13:04] LABS: Influenza A Molecular NEGATIVE (Negative); Influenza B Molecular NEGATIVE (Negative)
[2019-07-26 13:35] VITALS: BP 125/82
== END 2019-07-26 13:31 | disposition home or self-care (01) ==
LOC: ED 11:48
DX: J06.9 Acute upper respiratory infection, unspecified (principal); R50.9 Fever, unspecified; R05 Cough; R09.81 Nasal congestion; R51 Headache; Z72.0 Tobacco use; R06.02 Shortness of breath
CPT/HCPCS: 99282

== ENCOUNTER 2019-08-01 14:22 | Emergency (ER) | payer SELFPAY ==
[2019-08-01] MEDS ORDERED: Albuterol/Ipratropium NEB.SOL* Albuterol 2.5 MG/Ipratropium 0.5 MG 3 ML INH ONE (14:42)
--- NOTE | 2019-08-01 14:43 | ED ---
Asthma - HPI Summary HPI Summary: Pt is a 29 y/o F presenting to the ED with a chief complaint of an asthma flare- up. She states she has hx of asthma and PNA, and the last few days she has been coughing more frequently. She reports shortness of breath. She denies fever, hx of blood clots, pain or edema in legs. Denies hx of DM or blood clots. - History of Current Complaint Chief Complaint: EDAsthma Stated Complaint: ASTHMA Time Seen by Provider: 08/01/19 14:31 Hx Obtained From: Patient Onset/Duration: Gradual Onset, Lasting Days, Still Present Timing: Days Initial Severity: Mild Current Severity: Severe Pain Intensity: 7 Pain Scale Used: 0-10 Numeric Location/Character: Cough (Nonproductive) Aggravating Symptoms: Nothing Alleviating Symptoms: Nothing Associated Signs and Symptoms: Positive: Shortness of Breath. Negative: Calf Pain, Edema - Allergy/Home Medications Allergies/Adverse Reactions: Allergies Allergy/AdvReac Type Severity Reaction Status Date / Time cefaclor [From Ceclor] Allergy Unknown Verified 08/01/19 14:26 Reaction Details levofloxacin [From Levaquin] Allergy Unknown Verified 08/01/19 14:26 Reaction Details PMH/Surg Hx/FS Hx/Imm Hx Previously Healthy: Yes Endocrine/Hematology History: Denies: Hx Diabetes Cardiovascular History: Denies: Hx Hypercholesterolemia, Hx Hypertension Respiratory History: Reports: Hx Asthma History: Denies: Hx Dialysis Musculoskeletal History: Denies: Hx Gout Sensory History: Denies: Hx Eye Injury, Hx Legally Blind, Hx Deafness Opthamlomology History: Denies: Hx Eye Injury, Hx Legally Blind Neurological History: Denies: Hx Dementia Psychiatric History: Denies: Hx Autism - Surgical History Surgery Procedure, Year, and Place: 2 HERNIA REPAIR AND TONSILLECTOMY - Immunization History Date of Influenza Vaccine: none Infectious Disease History: No Infectious Disease History: Denies: Traveled Outside the [place] in Last 30 Days - Family History Known Family History: Positive: Other - cancer - Social History Alcohol Use: Occasionally Hx Substance Use: No Substance Use Type: Reports: None Hx Tobacco Use: Yes Smoking Status (MU): Current Some Day Smoker Review of Systems Negative: Fever Positive: Shortness Of Breath, Cough All Other Systems Reviewed And Are Negative: Yes Physical Exam - Summary Physical Exam Summary: Constitutional: Well-developed, Well-nourished, Alert. (-) Distressed Skin: Warm, Dry HENT: Normocephalic; Atraumatic Eyes: Conjunctiva normal Neck: Musculoskeletal ROM normal neck. (-) JVD, (-) Stridor, (-) Tracheal deviation Cardio: Rhythm regular, rate tachycardic, Heart sounds normal; Intact distal pulses; The pedal pulses are 2+ and symmetric. Radial pulses are 2+ and symmetric. (-) Murmur Pulmonary/Chest wall: Frequent dry cough. (-) Respiratory distress, (-) Wheezes , (-) Rales Abd: Soft, (-) tenderness, (-) Distension, (-) Guarding, (-) Rebound Musculoskeletal: (-) Edema Lymph: (-) Cervical adenopathy Neuro: Alert, Oriented x3 Psych: Mood and affect Normal Triage Information Reviewed: Yes Vital Signs On Initial Exam: Initial Vitals Temp Pulse Resp BP Pulse Ox 96.6 F 114 20 129/95 96 08/01/19 14:23 08/01/19 14:23 08/01/19 14:23 08/01/19 14:23 08/01/19 14:23 Vital Signs Reviewed: Yes Procedures - Sedation Patient Received Moderate/Deep Sedation with Procedure: No Diagnostics - Vital Signs Vital Signs Temp Pulse Resp BP Pulse Ox 08/01/19 14:23 96.6 F 114 20 129/95 96 - Laboratory Lab Statement: Any lab studies that have been ordered have been reviewed, and results considered in the medical decision making process. Asthma Course/Dx - Course Course Of Treatment: Pt is a 29 y/o F presenting to the ED with a chief complaint of an asthma flare-up. She reports cough and SOB. Denies fever. Physical exam shows frequent dry cough. Otherwise nml. Pt will be d/c'ed with dx of asthma exacerbation. She is stable and agreeable with this plan. - Diagnoses Provider Diagnoses: Asthma exacerbation Discharge ED - Sign-Out/Discharge Documenting (check all that apply): Patient Departure - Discharge Plan Condition: Stable Disposition: HOME Prescriptions: Albuterol HFA INHALER* [Ventolin HFA Inhaler*] 1 puff INH Q4H PRN #1 mdi PRN Reason: Wheezing Albuterol/Ipratropium NEB.MARISA* [Duoneb (Albuterol 2.5 MG/Ipratropium 0.5 MG)] 1 neb INH Q4H PRN #30 neb.soln PRN Reason: Wheezing predniSONE 20 mg TAB [Deltasone 20 MG TAB*] 40 mg PO DAILY #8 tab Patient Education Materials: Asthma (ED) Referrals: Care [facility] [Outside] Additional Instructions: Please use your prescribed medications as instructed. Follow up with your primary care provider within the next 2-3 days. Return to the emergency department with any new or worsening symptoms. - Billing Disposition and Condition Condition: STABLE Disposition: Home - Attestation Statements Document Initiated by Melinaibe: Yes Documenting Scribe: Christin Hoover Provider For Whom Kota is Documenting (Include Credential): Lance Mcgrath DO. Scribe Attestation: Christin Diego scribed for Lance Mcgrath DO. on 08/01/19 at 1532. Scribe Documentation Reviewed: Yes Provider Attestation: The documentation as recorded by the Christin gonzalez accurately reflects the service I personally performed and the decisions made by Lance chery DO. Status of Scribe Document: Viewed
[2019-08-01 15:30] VITALS: BP 113/79
== END 2019-08-01 15:29 | disposition home or self-care (01) ==
LOC: ED 14:22
DX: J45.901 Unspecified asthma with (acute) exacerbation (principal); F17.200 Nicotine dependence, unspecified, uncomplicated; Z88.1 Allergy status to other antibiotic agents
CPT/HCPCS: 99282; A9270-GY; J7512

== ENCOUNTER 2019-08-05 12:14 | Emergency (ER) | payer SELFPAY ==
[2019-08-05] MEDS ORDERED: Albuterol/Ipratropium NEB.SOL* Albuterol 2.5 MG/Ipratropium 0.5 MG 3 ML INH ONE (14:50)
[2019-08-05] MEDS ORDERED: Albuterol HFA INHALER* 8 gm MDI INH ONE (14:51)
[2019-08-05 15:16] VITALS: BP 122/93
--- NOTE | 2019-08-05 17:11 | ED ---
Respiratory - HPI Summary HPI Summary: This patient is a 29-year-old female with a history of asthma who presents to the ED multiple times with requests for more albuterol inhaler and breathing treatments. Patient states she has been coughing over the past day and had a asthma attack this morning. She is feeling somewhat improved, however does not have any of her inhaler left. She is also requesting a work note to return to work at this time. She denies any fevers, sweats, chills. Immunizations are not up-to-date and she did not receive the flu vaccine this year. She denies any production with her cough. Her cough is always dry and associated with wheezing and "tight lungs." She states this is typical for her asthma symptoms and is requesting an albuterol inhaler as well as a breathing treatment. - History of Current Complaint Chief Complaint: EDGeneral Stated Complaint: ASTHMA ISSUE PER PT Time Seen by Provider: 08/05/19 12:25 Hx Obtained From: Patient Onset/Duration: Gradual Onset Timing: Constant Initial Severity: Moderate Current Severity: Moderate Pain Intensity: 0 Character: Wheezing, Cough (Nonproductive) Sputum Amount: None Sputum Color: Clear Aggravating Factor(s): URI Alleviating Factor(s): Nothing, Neb. Bronchodilators (Frequency Of Use) Associated Signs and Symptoms: Negative - Allergy/Home Medications Allergies/Adverse Reactions: Allergies Allergy/AdvReac Type Severity Reaction Status Date / Time cefaclor [From Ceclor] Allergy Unknown Verified 08/05/19 12:28 Reaction Details levofloxacin [From Levaquin] Allergy Unknown Verified 08/05/19 12:28 Reaction Details PMH/Surg Hx/FS Hx/Imm Hx Previously Healthy: Yes Endocrine/Hematology History: Denies: Hx Diabetes Cardiovascular History: Denies: Hx Hypercholesterolemia, Hx Hypertension Respiratory History: Reports: Hx Asthma History: Denies: Hx Dialysis Musculoskeletal History: Denies: Hx Gout Sensory History: Denies: Hx Eye Injury, Hx Legally Blind, Hx Deafness Opthamlomology History: Denies: Hx Eye Injury, Hx Legally Blind Neurological History: Denies: Hx Dementia Psychiatric History: Denies: Hx Autism - Surgical History Surgery Procedure, Year, and Place: 2 HERNIA REPAIR AND TONSILLECTOMY - Immunization History Date of Influenza Vaccine: none Hx Pertussis Vaccination: No Immunizations Up to Date: Yes Infectious Disease History: No Infectious Disease History: Denies: Traveled Outside the [place] in Last 30 Days - Family History Known Family History: Positive: Other - cancer - Social History Occupation: Unemployed Lives: Alone Alcohol Use: Occasionally Hx Substance Use: No Substance Use Type: Reports: None Hx Tobacco Use: Yes Smoking Status (MU): Former Smoker Review of Systems Negative: Fever, Chills, Fatigue, Skin Diaphoresis Negative: Palpitations, Chest Pain Positive: Shortness Of Breath, Cough Genitourinary: Negative Positive: no symptoms reported, see HPI Negative: Arthralgia, Myalgia Neurological: Negative All Other Systems Reviewed And Are Negative: Yes Physical Exam Triage Information Reviewed: Yes Vital Signs On Initial Exam: Initial Vitals Temp Pulse Resp BP Pulse Ox 97.8 F 92 22 138/97 96 08/05/19 12:23 08/05/19 12:23 08/05/19 12:23 08/05/19 12:23 08/05/19 12:23 Vital Signs Reviewed: Yes Appearance: Positive: Well-Appearing, Well-Nourished Skin: Positive: Warm, Skin Color Reflects Adequate Perfusion Head/Face: Positive: Normal Head/Face Inspection Eyes: Positive: EOMI, Conjunctiva Clear Neck: Positive: Supple, No Lymphadenopathy Respiratory/Lung Sounds: Positive: Breath Sounds Present, Wheezes. Negative: Decreased Breath Sounds, Rales, Rhonchi, Unable to speak in full sentences, Fatigue Cardiovascular: Positive: RRR, Pulses are Symmetrical in both Upper and Lower Extremities Musculoskeletal: Positive: Strength/ROM Intact Neurological: Positive: Speech Normal Psychiatric: Positive: Affect/Mood Appropriate Procedures - Sedation Patient Received Moderate/Deep Sedation with Procedure: No Diagnostics - Vital Signs Vital Signs Temp Pulse Resp BP Pulse Ox 08/05/19 15:15 97.2 F 98 16 122/93 96 08/05/19 12:23 97.8 F 92 22 138/97 96 - Laboratory Lab Statement: Any lab studies that have been ordered have been reviewed, and results considered in the medical decision making process. Disposition - Course Course Of Treatment: During course of treatment, the patient is evaluated for asthma attack this morning. Wheezing noted bilaterally. Pt given duo neb improving her symptoms. Albuterol inhaler given in ED. Wheezing improved. Pt afebrile and OK for discharge. - Diagnoses Provider Diagnoses: SOB (shortness of breath), Asthma attack Discharge ED - Sign-Out/Discharge Documenting (check all that apply): Patient Departure - Discharge Plan Condition: Stable Disposition: HOME Prescriptions: Albuterol HFA INHALER* [Ventolin HFA Inhaler*] 1 - 2 puff INH Q4H PRN #1 mdi PRN Reason: Shortness Of Breath Forms: *Work Release Referrals: No Primary Care Phys,NOPCP [Primary Care Provider] - - Billing Disposition and Condition Condition: STABLE Disposition: Home
== END 2019-08-05 15:15 | disposition home or self-care (01) ==
LOC: ED 12:14
DX: J45.901 Unspecified asthma with (acute) exacerbation (principal); Z87.891 Personal history of nicotine dependence
CPT/HCPCS: 99282; A9270-GY

== ENCOUNTER 2019-08-16 22:46 | Emergency (ER) | payer SELFPAY ==
[2019-08-17] MEDS ORDERED: Albuterol HFA INHALER* 8 gm MDI INH ONE (03:32)
[2019-08-17] MEDS ORDERED: Ondansetron ODT TAB* 4 MG PO ONE (03:32)
--- NOTE | 2019-08-17 03:33 | ED ---
Complex/Multi-Sys Presentation - HPI Summary HPI Summary: The patient is a 29 y/o female presenting to [facility] with a chief complaint of nausea and vomiting onset 1600 yesterday. She reports that she did not eat in the morning and went to work at 1600 but could not stop vomiting even after eating. She has not had any food since then. She does not have nausea now. She also notes epistaxis persisting in intermittent episodes for two days this week which is unusual for her. She is additionally requesting an asthma inhaler because she does not have a PCP. PMHx: double hernia repair, tonsillectomy. Former smoker, occasional EtOH, no substance use. Medications reviewed. Allergies noted. - History Of Current Complaint Chief Complaint: EDGeneral Time Seen by Provider: 08/17/19 03:11 Hx Obtained From: Patient Onset/Duration: Resolved Severity Currently: None Severity Initially: Moderate Aggravating Factor(s): ran out of inhaler Alleviating Factor(s): nothing Associated Signs And Symptoms: Positive: Nausea, Vomiting, Other - epistaxis - Allergies/Home Medications Allergies/Adverse Reactions: Allergies Allergy/AdvReac Type Severity Reaction Status Date / Time cefaclor [From Ceclor] Allergy Unknown Verified 08/16/19 22:51 Reaction Details levofloxacin [From Levaquin] Allergy Unknown Verified 08/16/19 22:51 Reaction Details PMH/Surg Hx/FS Hx/Imm Hx Endocrine/Hematology History: Denies: Hx Diabetes Cardiovascular History: Denies: Hx Hypercholesterolemia, Hx Hypertension Respiratory History: Reports: Hx Asthma History: Denies: Hx Dialysis Musculoskeletal History: Denies: Hx Gout Sensory History: Denies: Hx Eye Injury, Hx Legally Blind, Hx Deafness Opthamlomology History: Denies: Hx Eye Injury, Hx Legally Blind Neurological History: Denies: Hx Dementia Psychiatric History: Denies: Hx Autism - Surgical History Surgical History: Yes Surgery Procedure, Year, and Place: 2 HERNIA REPAIR AND TONSILLECTOMY - Immunization History Date of Influenza Vaccine: none Infectious Disease History: No Infectious Disease History: Denies: Traveled Outside the [place] in Last 30 Days - Family History Known Family History: Positive: Other - cancer - Social History Alcohol Use: Occasionally Hx Substance Use: No Substance Use Type: Reports: None Hx Tobacco Use: Yes Smoking Status (MU): Former Smoker Review of Systems Positive: Epistaxis - resolved Positive: Vomiting - resolved, Nausea - resolved All Other Systems Reviewed And Are Negative: Yes Physical Exam - Summary Physical Exam Summary: Constitutional: Well-developed, Well-nourished, Alert. (-) Distressed Skin: Warm, Dry HENT: Normocephalic; Atraumatic; Very dry bilateral anterior nasal mucosa Eyes: Conjunctiva normal Neck: Musculoskeletal ROM normal neck. (-) JVD, (-) Stridor, (-) Tracheal deviation Cardio: Rhythm regular, rate normal, Heart sounds normal; Intact distal pulses; The pedal pulses are 2+ and symmetric. Radial pulses are 2+ and symmetric. Pulmonary/Chest wall: Effort normal. (-) Respiratory distress, (-) Wheezes, (-) Rales Abd: Soft, (-) tenderness, (-) Distension, (-) Guarding, (-) Rebound Musculoskeletal: (-) Edema Neuro: Alert, Oriented x3 Psych: Mood and affect Normal Triage Information Reviewed: Yes Vital Signs On Initial Exam: Initial Vitals Temp Pulse Resp BP Pulse Ox 97.5 F 108 20 124/76 95 08/16/19 22:51 08/16/19 22:51 08/16/19 22:51 08/16/19 22:51 08/16/19 22:51 Vital Signs Reviewed: Yes Procedures - Sedation Patient Received Moderate/Deep Sedation with Procedure: No Diagnostics - Vital Signs Vital Signs Temp Pulse Resp BP Pulse Ox 08/17/19 01:40 97.6 F 100 18 106/73 98 08/16/19 22:51 97.5 F 108 20 124/76 95 - Laboratory Lab Statement: Any lab studies that have been ordered have been reviewed, and results considered in the medical decision making process. Re-Evaluation - Re-Evaluation First Eval Re-Evaluation Time: 04:30 Change: Improved Comment: Patient tolerating PO, safe for d/c Complex Multi-Symp Course/Dx Course Of Treatment: Patient is a 29 y/o female presenting with multiple complaints of intermittent episodes of epistaxis, nausea and vomiting, and request for Albuterol inhaler refill today. Physical exam reveals very dry bilateral anterior nasal mucosa but is otherwise benign. Patient administered Albuterol inhaler and Zofran in the ED. Patient able to tolerate PO. It is noted that she has received at least 18 Albuterol inhalers over the last year, per Medication List. 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 Patient agreeable with plan. - Diagnoses Provider Diagnoses: Nausea, Medication refill Discharge ED - Sign-Out/Discharge Documenting (check all that apply): Patient Departure - Patient will be discharged home. - Discharge Plan Condition: Stable Disposition: HOME Patient Education Materials: Acute Nausea and Vomiting (ED) Referrals: Care [facility] [Outside] - 3 Days Additional Instructions: Follow up with your primary care provider in 2-3 days. Return to the emergency department for any new or worsening symptoms. - Attestation Statements Document Initiated by Scribe: Yes Documenting Scribe: Marietta Samuel Provider For Whom Melinaibe is Documenting (Include Credential): Dr. Mo Aleman MD Scribe Attestation: Marietta Diego scribed for Dr. Mo Aleman MD on 08/19/19 at 1753. Status of Scribe Document: Ready
[2019-08-17 04:53] VITALS: BP 105/69
== END 2019-08-17 04:51 | disposition home or self-care (01) ==
LOC: ED 22:46
DX: R11.0 Nausea (principal); J45.909 Unspecified asthma, uncomplicated; Z87.891 Personal history of nicotine dependence; Z88.1 Allergy status to other antibiotic agents
CPT/HCPCS: 99282; A9270-GY

== ENCOUNTER 2019-08-22 11:19 | Emergency (ER) | payer SELFPAY ==
[2019-08-22 11:45] VITALS: BP 131/85
--- NOTE | 2019-08-22 12:08 | UC ---
Respiratory Complaint HPI - HPI Summary HPI Summary: 29 y/o female presents to the urgent care requesting a refill for her albuterol onhaler. Pt w/ PMHx of Asthma. Pt reports she used to live in [facility] and since she move here last year her asthma has been flaring up. She feels the cold whether make her chest tight and needs her inhaler. She doesn't have a health insurance since she was fired. She doesn't have a a PCP and every time she feels she has an asthma attack she goes to the ER for a treatment and she is usually Rx a small dose inhaler. Pt went to ER last week for asthma attack and was not given a refill and was told to come to the urgent care. Pt deneis SOB, wheezing, fever, URI, chest pain, dizziness, abdominal pain,N/V/D. - History of Current Complaint Chief Complaint: UCAsthma Stated Complaint: ASTHMA ISSUES Time Seen by Provider: 08/22/19 12:07 Hx Obtained From: Patient Hx Last Menstrual Period: 08/16/19 ?: No Onset/Duration: Gradual Onset, Still Present Severity Initially: Mild Severity Currently: Mild Pain Intensity: 0 Aggravating Factors: Other - cold weather Alleviating Factors: Bronchodilator Associated Signs And Symptoms: Positive: Wheezing - at times w/ cold weather, URI Related History: Seasonal Allergies - Risk Factors Pulmonary Embolism Risk Factors: Negative Cardiac Risk Factors: Negative Pseudomonas Risk Factors: Negative Tuberculosis Risk Factors: Negative - Allergies/Home Medications Allergies/Adverse Reactions: Allergies Allergy/AdvReac Type Severity Reaction Status Date / Time cefaclor [From Ceclor] Allergy Unknown Verified 08/22/19 11:46 Reaction Details levofloxacin [From Levaquin] Allergy Unknown Verified 08/22/19 11:46 Reaction Details PMH/Surg Hx/FS Hx/Imm Hx Previously Healthy: Yes Respiratory History: Asthma - Surgical History Surgical History: Yes Surgery Procedure, Year, and Place: 2 HERNIA REPAIR AND TONSILLECTOMY - Family History Known Family History: Positive: Cardiac Disease, Respiratory Disease - asthma, Other - cancer - Social History Occupation: Employed Part-time Lives: With Family Alcohol Use: Occasionally Substance Use Type: None Smoking Status (MU): Light Every Day Tobacco Smoker Household Exposure Type: Cigarettes Review of Systems All Other Systems Reviewed And Are Negative: Yes Constitutional: Positive: Negative Skin: Positive: Negative Eyes: Positive: Negative ENT: Positive: Negative Respiratory: Positive: Negative Cardiovascular: Positive: Negative Gastrointestinal: Positive: Negative Genitourinary: Positive: Negative Motor: Positive: Negative Neurovascular: Positive: Negative Musculoskeletal: Positive: Negative Neurological: Positive: Negative Psychological: Positive: Negative Is Patient Immunocompromised?: No Physical Exam - Summary Physical Exam Summary: VITAL SIGNS: Reviewed. GENERAL: Patient is a well developed and nourished male who is sitting comfortably in the examining table. Patient is not in any acute respiratory distress. HEAD AND FACE: No signs of trauma. No ecchymosis, hematomas or skull depressions. No sinus tenderness. EYES: PERRLA, EOMI x 2, No injected conjunctiva, no nystagmus. No photophobia. EARS: Hearing grossly intact. Ear canals and tympanic membranes are within normal limits. MOUTH: Positive pharynx with mild erythema, no exudates, No B/L tonsillar enlargement , no exudate. Uvula in midline. NECK: Supple, trachea is midline, Positive anterior cervical lymphadenopathy, no JVD, no carotid bruit, no c-spine tenderness, neck with full ROM. No meningeal signs, no Kernig's or brudzinskis signs. CHEST: Symmetric, no tenderness at palpation LUNGS: Clear to auscultation bilaterally. No wheezing or crackles. CVS: Regular rate and rhythm, S1 and S2 present, no murmurs or gallops appreciated. ABDOMEN: Soft, non-tender. No signs of distention. No rebound no guarding, and no masses palpated. Bowel sounds are normal. EXTREMITIES: FROM in all major joints, no edema, no cyanosis or clubbing. NEURO: Alert and oriented x 3. No acute neurological deficits. Pt follows commands. Triage Information Reviewed: Yes Vital Signs: Initial Vital Signs Temp 98.3 F 08/22/19 11:42 Pulse 100 08/22/19 11:42 Resp 20 08/22/19 11:42 BP 131/85 08/22/19 11:42 Pulse Ox 97 08/22/19 11:42 Respiratory Course/Dx - Course Course Of Treatment: 29 y/o female presents to the urgent care requesting a refill for her albuterol onhaler. Pt w/ PMHx of Asthma. Pt reports she used to live in [facility] and since she move here last year her asthma has been flaring up. She feels the cold whether make her chest tight and needs her inhaler. She doesn't have a health insurance since she was fired. She doesn't have a a PCP and every time she feels she has an asthma attack she goes to the ER for a treatment and she is usually Rx a small dose inhaler. Pt went to ER last week for asthma attack and was not given a refill and was told to come to the urgent care. Pt denies SOB, wheezing, fever, URI, chest pain, dizziness, abdominal pain,N/V/D. Hx obtained. Pt is hemodynamically stable, A&Ox3. Pt's records reviewed and she was educated in not to abuse the albuterol inhaler and explained when to use it and the risk of abusing it. Pt Rx albuterol refill and given a referral w/ a PCP in the [facility] network or free clinc for further management in her asthma. D/ C instructions explained. Pt understood and agreed w/ plan of care. - Differential Dx/Diagnosis Differential Diagnosis/HQI/PQRI: Asthma, Bronchitis, Lower Resp Infection, Sinusitis Provider Diagnosis: Medication refill Discharge ED - Sign-Out/Discharge Documenting (check all that apply): Patient Departure - D/C home All imaging exams completed and their final reports reviewed: No Studies - Discharge Plan Condition: Stable Disposition: HOME Prescriptions: Albuterol HFA INHALER* [Ventolin HFA Inhaler*] 1 - 2 puff INH Q6H PRN #1 mdi PRN Reason: Wheezing Patient Education Materials: Asthma (ED) Referrals: [facility]IAN REFERRAL [Outside] - 2 Days Additional Instructions: 1-Use albuterol inhaler only if you develop wheezing. You need to f/u PCP from the [facility] net work for further management on your asthma. - Billing Disposition and Condition Condition: STABLE Disposition: Home
== END 2019-08-22 12:45 | disposition home or self-care (01) ==
LOC: UCEAST 11:19
DX: Z76.0 Encounter for issue of repeat prescription (principal); J45.909 Unspecified asthma, uncomplicated; F17.210 Nicotine dependence, cigarettes, uncomplicated; Z88.1 Allergy status to other antibiotic agents
CPT/HCPCS: 99212; G0463

== ENCOUNTER 2019-09-01 14:47 | Emergency (ER) | payer SELFPAY ==
[2019-09-01] MEDS ORDERED: Albuterol 2.5 MG/3 ML NEB.SOL* (0.083%) INH ONE (15:15)
[2019-09-01] MEDS ORDERED: Benzonatate CAP* 100 MG PO ONE (15:15)
[2019-09-01 15:24] LABS: Influenza A Molecular Negative (Negative); Influenza B Molecular Negative (Negative)
--- NOTE | 2019-09-01 16:08 | ED ---
Respiratory - HPI Summary HPI Summary: Patient is a 29 y/o F w/ Hx of asthma and PNA who presents to [facility] with complaints of sore throat, productive cough, fever, nasal discharge. Sx have been present since two days ago. Cough has been more productive and severe since initial onset. She denies vomiting and diarrhea. Patient has received flu shot this season. She notes that she was in contact with co-workers who had influenza and strep throat. Patient has been using her asthma medications more frequently as a result of her Sx. Patient notes that she is in between health insurances currently. PMHx is denied with exception of asthma and PNA. PSHx of tonsillectomy and hernia repair reported. NKDA noted. Patient states that she last smoked cigarettes 2-3 weeks ago. Occasional alcohol usage noted, she denies substance abuse. No recent travel outside of the country. Home medications and allergies are reviewed. - History of Current Complaint Chief Complaint: EDFluSymptoms Stated Complaint: FLU SYMPTOMS AND ASTHMA PER PT Time Seen by Provider: 09/01/19 14:59 Hx Obtained From: Patient Onset/Duration: Lasting Days, Still Present Timing: Constant Initial Severity: Moderate Current Severity: Severe Pain Intensity: 7 Character: Cough (Productive) Associated Signs and Symptoms: Fever, Nasal Congestion - Allergy/Home Medications Allergies/Adverse Reactions: Allergies Allergy/AdvReac Type Severity Reaction Status Date / Time cefaclor [From Ceclor] Allergy Unknown Verified 08/22/19 11:46 Reaction Details levofloxacin [From Levaquin] Allergy Unknown Verified 08/22/19 11:46 Reaction Details PMH/Surg Hx/FS Hx/Imm Hx Endocrine/Hematology History: Denies: Hx Diabetes, Hx Thyroid Disease Cardiovascular History: Denies: Hx Hypercholesterolemia, Hx Hypertension Respiratory History: Reports: Hx Asthma, Hx Pneumonia Denies: Hx Chronic Obstructive Pulmonary Disease (COPD) GI History: Denies: Hx Ulcer History: Denies: Hx Dialysis Musculoskeletal History: Denies: Hx Gout Sensory History: Denies: Hx Eye Injury, Hx Legally Blind, Hx Deafness Opthamlomology History: Denies: Hx Eye Injury, Hx Legally Blind Neurological History: Denies: Hx Dementia Psychiatric History: Denies: Hx Autism - Surgical History Surgery Procedure, Year, and Place: 2 HERNIA REPAIR AND TONSILLECTOMY - Immunization History Date of Influenza Vaccine: 06/2019 Infectious Disease History: No Infectious Disease History: Denies: Hx Hepatitis, Hx Human Immunodeficiency Virus (HIV), Traveled Outside the [place] in Last 30 Days - Family History Known Family History: Positive: Cardiac Disease, Respiratory Disease - asthma, Other - cancer - Social History Alcohol Use: Occasionally Hx Substance Use: No Substance Use Type: Reports: None Hx Tobacco Use: Yes Smoking Status (MU): Light Every Day Tobacco Smoker Review of Systems Positive: Fever Positive: Sore Throat, Nasal Discharge Positive: Cough All Other Systems Reviewed And Are Negative: Yes Physical Exam - Summary Physical Exam Summary: Constitutional: Well-developed, Well-nourished, Alert. (-) Distressed Skin: Warm, Dry HENT: Normocephalic; Atraumatic Eyes: Conjunctiva normal Neck: Musculoskeletal ROM normal neck. (-) JVD, (-) Stridor, (-) Tracheal deviation Cardio: Rhythm regular, rate normal, Heart sounds normal; Intact distal pulses; Radial pulses are 2+ and symmetric. (-) Murmur Pulmonary/Chest wall: Frequent cough noted. Effort normal. (-) Respiratory distress, (-) Wheezes, (-) Rales Abd: Soft, (-) tenderness, (-) Distension, (-) Guarding, (-) Rebound Musculoskeletal: (-) Edema Lymph: (-) Cervical adenopathy Neuro: Alert, Oriented x3 Psych: Mood and affect Normal Triage Information Reviewed: Yes Vital Signs On Initial Exam: Initial Vitals Temp Pulse Resp BP Pulse Ox 96.6 F 132 18 136/89 97 09/01/19 14:47 09/01/19 14:47 09/01/19 14:47 09/01/19 14:47 09/01/19 14:47 Vital Signs Reviewed: Yes Procedures - Sedation Patient Received Moderate/Deep Sedation with Procedure: No Diagnostics - Vital Signs Vital Signs Temp Pulse Resp BP Pulse Ox 09/01/19 14:47 96.6 F 132 18 136/89 97 - Laboratory Lab Results: Lab Results 09/01/19 Range/Units 14:52 Influenza A (Rapid) Negative (Negative) Influenza B (Rapid) Negative (Negative) Lab Statement: Any lab studies that have been ordered have been reviewed, and results considered in the medical decision making process. Disposition - Course Course Of Treatment: Patient is here with an asthma exacerbation. Patient is here frequently with similar symptoms. Patient was given a nebulizer treatment with improvement in her symptoms. Patient started on Tessalon Perles, albuterol. - Diagnoses Provider Diagnoses: Asthma exacerbation, Cough Discharge ED - Sign-Out/Discharge Documenting (check all that apply): Patient Departure - discharge - Discharge Plan Condition: Stable Disposition: HOME Prescriptions: Albuterol 2.5MG/3ML (0.083%)* [Ventolin 2.5 MG/3 ML NEB.MARISA*] 2.5 mg INH Q6H # 25 neb.marisa Albuterol HFA INHALER* [Ventolin HFA Inhaler*] 1 - 2 puff INH Q6H PRN #1 mdi PRN Reason: Wheezing Benzonatate CAP* [Tessalon 100 MG CAP*] 100 mg PO TID #20 cap Patient Education Materials: Asthma (ED), Acute Cough (ED) Forms: *Work Release Referrals: [facility] [Outside] Mercedes Villagran MD [Medical Doctor] - Additional Instructions: FOLLOW UP WITH DR. VILLAGRAN. CALL HER OFFICE TO CHECK IF THERE IS A PROGRAM AVAILABLE WHEREIN YOU CAN BE SEEN WITHOUT INSURANCE. PLEASE RETURN TO ED FOR SEVERE CHEST PAIN, DIFFICULTY BREATHING OR ANY OTHER CONCERNING SYMPTOMS. - Billing Disposition and Condition Condition: STABLE Disposition: Home - Attestation Statements Document Initiated by Kota: Yes Documenting Scribe: LYNETTE GRIMM Provider For Whom Kota is Documenting (Include Credential): GEE MANCIA MD Scribe Attestation: LYNETTE Diego, scribed for GEE MANCIA MD on 09/01/19 at 1716. Scribe Documentation Reviewed: Yes Provider Attestation: The documentation as recorded by the LYNETTE gonzalez accurately reflects the service I personally performed and the decisions made by , GEE MANCIA MD Status of Scribe Document: Viewed
[2019-09-01 16:35] VITALS: BP 111/83
== END 2019-09-01 16:35 | disposition home or self-care (01) ==
LOC: ED 14:47
DX: J45.901 Unspecified asthma with (acute) exacerbation (principal); F17.210 Nicotine dependence, cigarettes, uncomplicated; Z88.1 Allergy status to other antibiotic agents
CPT/HCPCS: 99281; A9270-GY

== ENCOUNTER 2019-09-19 15:44 | Emergency (ER) | payer SELFPAY ==
--- NOTE | 2019-09-19 16:48 | ED ---
Throat Pain/Nasal Congestion - HPI Summary HPI Summary: This patient is a 29 year old female presenting to [facility] with a chief complaint of sore throat since 5 days ago. She states a couple weeks ago many people in her place of employment has strep throat. She also reports sore throat, left ear pain, and nasal drainage. - History of Current Complaint Chief Complaint: EDThroatPain Time Seen by Provider: 09/19/19 16:43 Hx Obtained From: Patient Onset/Duration: Lasting Days - Allergies/Home Medications Allergies/Adverse Reactions: Allergies Allergy/AdvReac Type Severity Reaction Status Date / Time cefaclor [From Ceclor] Allergy Unknown Verified 09/19/19 15:57 Reaction Details levofloxacin [From Levaquin] Allergy Unknown Verified 09/19/19 15:57 Reaction Details Home Medications: Home Medications Albuterol HFA INHALER* [Ventolin HFA Inhaler*] 1 - 2 puff INH Q6H PRN #1 mdi 09/09 [Rx] Albuterol 2.5MG/3ML (0.083%)* [Ventolin 2.5 MG/3 ML NEB.MARISA*] 2.5 mg INH Q6H # 25 neb.marisa 09/01/19 [Rx] Albuterol HFA INHALER* [Ventolin HFA Inhaler*] 1 - 2 puff INH Q6H PRN #1 mdi 07/09 [Rx] Benzonatate CAP* [Tessalon 100 MG CAP*] 100 mg PO TID #20 cap 09/01/19 [Rx] PMH/Surg Hx/FS Hx/Imm Hx Endocrine/Hematology History: Denies: Hx Diabetes, Hx Thyroid Disease Cardiovascular History: Denies: Hx Hypercholesterolemia, Hx Hypertension Respiratory History: Reports: Hx Asthma, Hx Pneumonia Denies: Hx Chronic Obstructive Pulmonary Disease (COPD) GI History: Denies: Hx Ulcer History: Denies: Hx Dialysis Musculoskeletal History: Denies: Hx Gout Sensory History: Denies: Hx Eye Injury, Hx Legally Blind, Hx Deafness Opthamlomology History: Denies: Hx Eye Injury, Hx Legally Blind Neurological History: Denies: Hx Dementia Psychiatric History: Denies: Hx Autism - Surgical History Surgery Procedure, Year, and Place: 2 HERNIA REPAIR AND TONSILLECTOMY - Immunization History Date of Influenza Vaccine: 06/2019 Infectious Disease History: No Infectious Disease History: Denies: Hx Hepatitis, Hx Human Immunodeficiency Virus (HIV), Traveled Outside the [place] in Last 30 Days - Family History Known Family History: Positive: Cardiac Disease, Respiratory Disease - asthma, Other - cancer - Social History Alcohol Use: Occasionally Hx Substance Use: No Substance Use Type: Reports: None Hx Tobacco Use: Yes Smoking Status (MU): Light Every Day Tobacco Smoker Review of Systems Negative: Fever Positive: Sore Throat, Ear Ache, Nasal Discharge Cardiovascular: Negative Respiratory: Negative Gastrointestinal: Negative Genitourinary: Negative Musculoskeletal: Negative Skin: Negative All Other Systems Reviewed And Are Negative: Yes Physical Exam - Summary Physical Exam Summary: VITAL SIGNS: Reviewed. GENERAL: Patient is a well-developed and nourished FEMALE who is lying comfortable in the stretcher. Patient is not in any acute respiratory distress. HEAD AND FACE: No signs of trauma. No ecchymosis, hematomas or skull depressions. No sinus tenderness. EYES: PERRLA, EOMI x 2, No injected conjunctiva, no nystagmus. EARS: Hearing grossly intact. Ear canals and tympanic membranes are within normal limits. MOUTH: Oropharynx within normal limits. NECK: Supple, trachea is midline, no adenopathy, no JVD, no carotid bruit, no c- spine tenderness, neck with full ROM. CHEST: Symmetric, no tenderness at palpation. LUNGS: Clear to auscultation bilaterally. No wheezing or crackles. CVS: Regular rate and rhythm, S1 and S2 present, no murmurs or gallops appreciated. ABDOMEN: Soft, non-tender. No signs of distention. No rebound, no guarding, and no masses palpated. Bowel sounds are normal. EXTREMITIES: FROM in all major joints, no edema, no cyanosis or clubbing. NEURO: Alert and oriented x 3. No acute neurological deficits. Speech is normal and follows commands. SKIN: Dry and warm. Triage Information Reviewed: Yes Vital Signs On Initial Exam: Initial Vitals Temp Pulse Resp BP Pulse Ox 99.1 F 112 18 151/85 98 09/19/19 15:53 09/19/19 15:53 09/19/19 15:53 09/19/19 15:53 09/19/19 15:53 Vital Signs Reviewed: Yes Procedures - Sedation Patient Received Moderate/Deep Sedation with Procedure: No Diagnostics - Vital Signs Vital Signs Temp Pulse Resp BP Pulse Ox 03/01/20 15:53 99.1 F 112 18 151/85 98 - Laboratory Lab Statement: Any lab studies that have been ordered have been reviewed, and results considered in the medical decision making process. EENT Course/Dx - Course Assessment/Plan: This patient is a 29 year old female presenting to [facility] with a chief complaint of sore throat since 5 days ago. She states a couple weeks ago many people in her place of employment has strep throat. She also reports sore throat, left ear pain, and nasal drainage. Rapid strep is negative. Influenza A and B is negative. 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 I discussed all the findings and test results with the patient. Patient was instructed to return to the emergency room immediately if any of the symptoms return worsens. Plan of care was discussed with the patient and understands and agrees. All questions were answered at patient satisfaction. There were no further complaints or concerns. Lung exam before discharge: CTA B/L. Good air exchange. No wheezing or crackles heard. CVS: S1 and S2 present. No murmurs appreciated. Patient is alert and oriented x 3. Patient is hemodynamically stable. Patient will be discharged home with follow up PCP in the next 2-3 days - Diagnoses Provider Diagnoses: URI (upper respiratory infection) Discharge ED - Sign-Out/Discharge Documenting (check all that apply): Patient Departure - Discharge - Discharge Plan Condition: Stable Disposition: HOME Patient Education Materials: Upper Respiratory Infection (ED) Referrals: No Primary Care Phys,NOPCP [Primary Care Provider] - Additional Instructions: Return to ED with new or worsening symptoms. - Billing Disposition and Condition Condition: STABLE Disposition: Home - Attestation Statements Document Initiated by Kota: Yes Documenting Scribe: Emmanuel Bradford Provider For Whom Kota is Documenting (Include Credential): Prem Walker MD Scribe Attestation: Emmanuel Diego scribed for Prem Walker MD on 09/19/19 at 2104. Scribe Documentation Reviewed: Yes Provider Attestation: The documentation as recorded by the Emmanuel gonzalez accurately reflects the service I personally performed and the decisions made by me, Prem Walker MD Status of Scribe Document: Viewed
[2019-09-19 17:14] LABS: Rapid Strep Molecular Negative (Negative)
[2019-09-19 17:19] LABS: Influenza A Molecular Negative (Negative); Influenza B Molecular Negative (Negative)
[2019-09-19 18:53] VITALS: BP 146/101
== END 2019-09-19 18:52 | disposition home or self-care (01) ==
LOC: ED 15:44
DX: J06.9 Acute upper respiratory infection, unspecified (principal); J45.909 Unspecified asthma, uncomplicated; Z79.51 Long term (current) use of inhaled steroids; Z88.1 Allergy status to other antibiotic agents; F17.200 Nicotine dependence, unspecified, uncomplicated
CPT/HCPCS: 87651; 96372; 99282

== ENCOUNTER 2019-10-04 13:19 | Emergency (ER) | payer SELFPAY ==
[2019-10-04 14:15] VITALS: BP 129/86
--- NOTE | 2019-10-04 14:19 | ED ---
Complex/Multi-Sys Presentation - HPI Summary HPI Summary: 29-year-old female with a significant past medical history of asthma presents to the emergency department today with a chief complaint of "I cannot get into see my primary care doctor and I am out of asthma medication." Patient states due to recent events she is unable to see her primary care doctor and has run out of her albuterol nebulizers as well as her HFA rescue inhaler. Patient is currently asymptomatic at this time and is in no acute distress. Patient denies fever, chest pain, abdominal pain, rash, nausea, vomiting, diarrhea, shortness of breath. Patient has no history of travel. - History Of Current Complaint Chief Complaint: EDPrescriptionNeeded Time Seen by Provider: 10/04/19 13:51 Hx Obtained From: Patient Onset/Duration: Gradual Onset Timing: Constant Severity Currently: None Severity Initially: Mild Associated Signs And Symptoms: Positive: Wheezing - Allergies/Home Medications Allergies/Adverse Reactions: Allergies Allergy/AdvReac Type Severity Reaction Status Date / Time cefaclor [From Ceclor] Allergy Unknown Verified 10/04/19 13:26 Reaction Details levofloxacin [From Levaquin] Allergy Unknown Verified 10/04/19 13:26 Reaction Details Home Medications: Home Medications Albuterol HFA INHALER* [Ventolin HFA Inhaler*] 1 - 2 puff INH Q6H PRN #1 mdi 09/09 [Rx] Albuterol 2.5MG/3ML (0.083%)* [Ventolin 2.5 MG/3 ML NEB.MARISA*] 2.5 mg INH Q6H # 25 [email or web address] 09/01/19 [Rx] Albuterol HFA INHALER* [Ventolin HFA Inhaler*] 1 - 2 puff INH Q6H PRN #1 mdi 07/09 [Rx] Benzonatate CAP* [Tessalon 100 MG CAP*] 100 mg PO TID #20 cap 09/01/19 [Rx] Albuterol 2.5MG/3ML (0.083%)* [Ventolin 2.5 MG/3 ML NEB.MARISA*] 2.5 mg INH Q6H # 25 neb.marisa 10/04/19 [Rx] Albuterol HFA INHALER* [Ventolin HFA Inhaler*] 2 puff INH Q6H PRN #1 alyssa [Rx] PMH/Surg Hx/FS Hx/Imm Hx Endocrine/Hematology History: Denies: Hx Diabetes, Hx Thyroid Disease Cardiovascular History: Denies: Hx Hypercholesterolemia, Hx Hypertension Respiratory History: Reports: Hx Asthma, Hx Pneumonia Denies: Hx Chronic Obstructive Pulmonary Disease (COPD) GI History: Denies: Hx Ulcer History: Denies: Hx Dialysis Musculoskeletal History: Denies: Hx Gout Sensory History: Denies: Hx Eye Injury, Hx Legally Blind, Hx Deafness Opthamlomology History: Denies: Hx Eye Injury, Hx Legally Blind Neurological History: Denies: Hx Dementia Psychiatric History: Denies: Hx Autism - Surgical History Surgery Procedure, Year, and Place: 2 HERNIA REPAIR AND TONSILLECTOMY - Immunization History Date of Influenza Vaccine: 06/2019 Infectious Disease History: No Infectious Disease History: Denies: Hx Hepatitis, Hx Human Immunodeficiency Virus (HIV), Traveled Outside the [place] in Last 30 Days - Family History Known Family History: Positive: Cardiac Disease, Respiratory Disease - asthma, Other - cancer - Social History Alcohol Use: Occasionally Hx Substance Use: No Substance Use Type: Reports: None Hx Tobacco Use: Yes Smoking Status (MU): Light Every Day Tobacco Smoker Review of Systems Constitutional: Negative Eyes: Negative ENT: Negative Cardiovascular: Negative Respiratory: Negative Gastrointestinal: Negative Genitourinary: Negative Musculoskeletal: Negative Skin: Negative Neurological/Mental Status: Negative Psychological: Normal All Other Systems Reviewed And Are Negative: Yes Physical Exam Triage Information Reviewed: Yes Vital Signs On Initial Exam: Initial Vitals Temp Pulse Resp BP Pulse Ox 97.8 F 111 24 131/97 98 10/04/19 13:23 10/04/19 13:23 10/04/19 13:23 10/04/19 13:23 10/04/19 13:23 Vital Signs Reviewed: Yes Appearance: Positive: Well-Appearing, No Pain Distress, Well-Nourished Skin: Positive: Warm, Skin Color Reflects Adequate Perfusion Eyes: Positive: EOMI, SHANTEL ENT: Positive: Hearing grossly normal Respiratory/Lung Sounds: Positive: Clear to Auscultation, Breath Sounds Present Cardiovascular: Positive: RRR, S1, S2 Abdomen Description: Positive: Nontender, Soft Musculoskeletal: Positive: Strength/ROM Intact Neurological: Positive: Sensory/Motor Intact, Alert, Oriented to Person Place, Time, Normal Gait, Facial Symmetry, Speech Normal Psychiatric: Positive: Normal, Affect/Mood Appropriate AVPU Assessment: Alert Procedures - Sedation Patient Received Moderate/Deep Sedation with Procedure: No Diagnostics - Vital Signs Vital Signs Temp Pulse Resp BP Pulse Ox 10/04/19 14:15 97.9 F 99 21 129/86 99 10/04/19 13:23 97.8 F 111 24 131/97 98 - Laboratory Lab Statement: Any lab studies that have been ordered have been reviewed, and results considered in the medical decision making process. Complex Multi-Symp Course/Dx Course Of Treatment: Patient was evaluated in the emergency department today for medication refill. Patient seen and examined. Vitals noted. Patient had no medical problems requiring intervention at this time. Patient requested albuterol HFA inhaler and albuterol nebulizer treatments which were sent to her pharmacy. Patient discharged with outpatient follow-up to her PCP. - Diagnoses Differential Diagnoses/HQI/PQRI: Metabolic Abnormality, Other - Asthma Provider Diagnoses: Asthma Discharge ED - Sign-Out/Discharge Documenting (check all that apply): Patient Departure - Discharge Plan Condition: Stable Disposition: HOME Prescriptions: Albuterol 2.5MG/3ML (0.083%)* [Ventolin 2.5 MG/3 ML NEB.MARISA*] 2.5 mg INH Q6H # 25 neb.marisa Albuterol HFA INHALER* [Ventolin HFA Inhaler*] 2 puff INH Q6H PRN #1 mdi PRN Reason: Shortness Of Breath Patient Education Materials: Asthma (ED) Referrals: [facility] [Outside] - 3 Days No Primary Care Phys,NOPCP [Primary Care Provider] - Additional Instructions: Please take your medications as prescribed. Please follow-up with your primary care provider as soon as possible for further evaluation and management. Please return to the emergency department immediately if you develop any new or worsening symptoms. - Billing Disposition and Condition Condition: STABLE Disposition: Home
== END 2019-10-04 14:15 | disposition home or self-care (01) ==
LOC: ED 13:19
DX: J45.909 Unspecified asthma, uncomplicated (principal); F17.210 Nicotine dependence, cigarettes, uncomplicated; Z79.899 Other long term (current) drug therapy; Z88.1 Allergy status to other antibiotic agents
CPT/HCPCS: 99282